=== PATIENT | female | born 1955 | race Caucasian/White ===

== ENCOUNTER 2022-11-22 07:34 | Inpatient (IN) | payer MEDICARE, OTHER ==
[2022-11-22] VITALS (12 sets, daily range): BP systolic 70–178; BP diastolic 68–98
[~2022-11-22] VITALS: Ht 165.1 cm; Wt 64.3 kg
--- NOTE | 2022-11-22 08:20 | ED Lower Extremity ---
General Chief Complaint: Trauma-Non Activation Stated Complaint: FALL; LT HIP PAIN Nursing Triage Note: Patient brought to the ED by EMS for chief complaint of fall and left hip pain. Family with patient report patient went to check on an alarm at 4:45 am this morning and fell down two steps into the garage. Family reports they were able to get patient back into bed, but that she continues to have left hip pain. Family states patient has Alzheimer's dementia. Source: patient Exam Limitations: no limitations History of Present Illness Date Seen by Provider: Nov 22, 2022 Time Seen by Provider: 07:45 Initial Comments Patient is a 67-year-old female presents with isolated left hip pain/injury after mechanical fall from standing. Patient with left hip pain/tenderness and shortening of left leg. Patient did not hit her head. No loss of consciousness headache or neck pain. No other injury or pain related complaint. Patient is not on anticoagulation therapy. Patient last ate 1 hour prior to ED arrival. Onset: just prior to arrival Pain/Injury Location: left leg Method of Injury: other Modifying Factors: Improves With Other Allergies and Home Medications Allergies Coded Allergies: Penicillins (Verified Allergy, Unknown, 11/22/22) Patient Home Medication List Home Medication List Reviewed: Yes Review of Systems Constitutional: see HPI EENTM: see HPI Respiratory: see HPI Cardiovascular: see HPI Gastrointestinal: see HPI Genitourinary: see HPI Musculoskeletal: joint pain, joint swelling Skin: see HPI Psychiatric/Neurological: Denies Numbness, Denies Weakness All Other Systems Reviewed Negative Unless Noted: No Past Ljinbig-Iicaue-Pcvbyv Hx Patient Social History Tobacco Use?: No Use of E-Cig and/or Vaping dev: No Substance use?: No Alcohol Use?: No Pt feels they are or have been: No Past Medical History Surgery/Hospitalization HX: Alzheimers; Dementia; HTN Physical Exam Vital Signs Vital Signs - First Documented 11/22/22 07:57 Temp 35.8 Pulse 87 Resp 18 B/P (MAP) 161/66 (97) Pulse Ox 100 O2 Delivery Room Air Capillary Refill : Less Than 3 Seconds Height, Weight, BMI Height: '" Weight: lbs. oz. kg; 23.00 BMI Method: General Appearance: mild distress HEENT: PERRL/EOMI, normal ENT inspection, pharynx normal Respiratory: lungs clear Gastrointestinal: non tender, soft Hips: left hip deformity, left hip limited range of motion, left hip soft tissue tenderness, left hip swelling, left hip other (Short left left leg) Neurologic/Psychiatric: no motor/sensory deficits, oriented x 3 Progress/Results/Core Measures Results/Orders My Orders Orders - ULYSSES RAMÍREZ DO Cbc With Automated Diff (11/22/22 07:45) Comprehensive Metabolic Panel (11/22/22 07:45) Ekg Tracing (11/22/22 07:45) Chest 1 View Ap/Pa Only (11/22/22 07:45) Hip 2-3 View Left (11/22/22 07:45) Vital Signs/I&O 11/22/22 07:57 Temp 35.8 Pulse 87 Resp 18 B/P (MAP) 161/66 (97) Pulse Ox 100 O2 Delivery Room Air Blood Pressure Mean: 97 Departure Communication (Admissions) Chest x-ray: No acute cardiopulmonary disease per Pelvis/left hip injury: Femoral neck fracture. EKG: Sinus rhythm, rate 71, no acute ST-T wave changes. Patient with accidental fall from standing with isolated closed femoral neck fracture which is neurovascularly intact. Pain addressed and controlled. Dr. Mitchell agrees to see in consult. Dr. Lanza contacted regarding admission Impression Primary Impression: Hip fracture, left Disposition: ADMITTED INPATIENT Condition: Stable Admissions Decision to Admit Reason: Admit from ER (General) Decision to Admit/Date: Nov 22, 2022 Time/Decision to Admit Time: 08:39 Transfer Method of Transfer: EMS Departure-Patient Inst. Decision time for Depature: 08:39 Referrals: DARIAN HODGES APRN (PCP) Primary Care Physician [facility] (Family) Primary Care Physician ULYSSES RAMÍREZ DO Nov 22, 2022 08:20
--- NOTE | 2022-11-22 08:27 | Diagnostic Imaging Report ---
INDICATION: Left hip pain and deformity post fall, fracture. TECHNIQUE: 2 views left hip 7:54 AM. CORRELATION STUDY: None FINDINGS: Left femoral neck fracture present. Significant impaction and foreshortening is noted. Slight coxa vera alignment along the superior subluxation of the femoral shaft in relation to the head. The femoral head acetabular relationship otherwise maintained. The remainder of the left hemipelvis intact. IMPRESSION: 1. Impacted, significantly foreshortened left femoral neck fracture. Dictated by: Dictated on workstation # [id number]
--- NOTE | 2022-11-22 08:36 | Diagnostic Imaging Report ---
INDICATION: 67-year-old female, hip fracture, preoperative evaluation. TECHNIQUE: Single view chest 7:52 AM. CORRELATION STUDY: None FINDINGS: The heart size, mediastinal configuration and pulmonary vascularity are within normal limits. No pulmonary infiltrate. There is a 13 mm irregular density right lung base superimposed over the anterior right 3rd rib. Degenerative changes and scoliotic curvature visualized thoracal lumbar spine. IMPRESSION: 1. Abnormal density right lung base. While may reflect summation shadows, possibility of lung neoplasm should be excluded. Correlation with CT imaging of the chest is recommended. Report was faxed and called to nurse Todd Maldonado by marcelo at 8:35am. Dictated by: Dictated on workstation # [id number]
[2022-11-22 08:40] LABS: BASOPHILS # (AUTO) 0.1 10^3/uL (0.0-0.1); BASOPHILS % (AUTO) 0 % (0-10); EOSINOPHILS % (AUTO) 0 % (0-10); HEMATOCRIT 40 % (35-52); HEMOGLOBIN 13.9 g/dL (11.5-16.0); LYMPHOCYTES # (AUTO) 1.4 10^3/uL (1.0-4.0); LYMPHOCYTES % (AUTO) 6 % (12-44); MEAN CORPUSCULAR HEMOGLOBIN 29 pg (25-34); MEAN CORPUSCULAR HGB CONC 35 g/dL (32-36); MEAN CORPUSCULAR VOLUME 84 fL (80-99); MEAN PLATELET VOLUME 10.1 fL (9.0-12.2); MONOCYTES # (AUTO) 0.8 10^3/uL (0.0-1.0); MONOCYTES % (AUTO) 4 % (0-12); NEUTROPHILS # (AUTO) 19.9 10^3/uL (1.8-7.8); NEUTROPHILS % (AUTO) 89 % (42-75); PLATELET COUNT 297 10^3/uL (130-400); WHITE BLOOD COUNT 22.4 10^3/uL (4.3-11.0)
[2022-11-22 09:04] LABS: POTASSIUM 4.3 MMOL/L (3.6-5.0)
[2022-11-22 09:05] LABS: ALBUMIN 4.1 GM/DL (3.2-4.5); BILIRUBIN,TOTAL 0.2 MG/DL (0.1-1.0); CALCIUM 8.9 MG/DL (8.5-10.1); CREATININE SERUM 0.97 MG/DL (0.60-1.30)
[2022-11-22 09:08] LABS: BAND NEUTROPHILS 6 %; LYMPHOCYTES % (MANUAL) 6 %; MONOCYTES % (MANUAL) 2 %; NEUTROPHILS % (MANUAL) 86 %; PLATELET ESTIMATE NORMAL; RBC MORPH NORMAL
[2022-11-22 10:58] LABS: BILIRUBIN,URINE NEGATIVE (NEGATIVE); CLARITY,URINE TURBID; COLOR,URINE YELLOW; GLUCOSE, URINE (UA) NEGATIVE (NEGATIVE); KETONES,URINE NEGATIVE (NEGATIVE); LEUKOCYTE ESTERASE ,URINE NEGATIVE (NEGATIVE); NITRITE,URINE NEGATIVE (NEGATIVE); PROTEIN,URINE NEGATIVE (NEGATIVE)
[2022-11-22 11:09] LABS: AMORPHOUS SEDIMENT,UR LARGE AMOR URATES /LPF; BACTERIA,URINE NEGATIVE /HPF; RBC,URINE RARE /HPF; SQUAMOUS EPITHELIAL CELL,UR RARE /HPF; WBC,URINE RARE /HPF
[2022-11-22] MEDS ORDERED: BISACODYL 10 MG SUPP (DULCOLAX) PR PRN (11:15)
[2022-11-22] MEDS ORDERED: diphenhydrAMINE 25 MG TAB (BENADRYL) PO PRN (11:15)
[2022-11-22] MEDS ORDERED: ONDANSETRON 4 MG (ZOFRAN) ORAL DISSOLVE TAB PO PRN (11:15)
[2022-11-22] MEDS ORDERED: diphenhydrAMINE 50 MG/ML INJ (BENADRYL) IVP PRN (11:15)
[2022-11-22] MEDS ORDERED: ACETAMINOPHEN 325 MG TABLET PO PRN (11:15)
[2022-11-22] MEDS ORDERED: ANTACID SUSP 30 ML UDC (MYLANTA) PO PRN (11:15)
[2022-11-22] MEDS ORDERED: ONDANSETRON 4 MG/2 ML (SDV) Z0FRAN IV PRN (11:15)
[2022-11-22] MEDS ORDERED: polyethylene glycoL POWDER 17 GM (MIRALAX) PACK PO PRN (11:15)
[2022-11-22] MEDS: NS IV 1000 ML 1,000 ML IV SCH ×2 (11:39→21:09)
[2022-11-22] MEDS: HYDROmorphone 2 MG/ML VIAL (DILAUDID) IV PRN (11:56)
[2022-11-22] MEDS ORDERED: LIDOCAINE PF 2% 5 ML (XYLOCAINE) VIAL ONE (12:01)
[2022-11-22] MEDS ORDERED: SEVOFLURANE (ULTANE) 15 ML INHAL SOLN ONE ×2 (12:01→16:21)
[2022-11-22] MEDS ORDERED: fentaNYL INJ 100 MCG/2 ML AMP ONE ×2 (12:01→16:49)
[2022-11-22] MEDS ORDERED: MIDAZOLAM 2 MG/2 ML (VERSED) VIAL ONE (12:01)
[2022-11-22] MEDS ORDERED: proPOfol 200 MG/20 ML (DIPRIVAN) VIAL IV ONE (12:01)
[2022-11-22] MEDS ORDERED: ONDANSETRON 4 MG/2 ML (SDV) Z0FRAN ONE (12:01)
--- NOTE | 2022-11-22 12:16 | Consultation - Ortho ---
Consult - Ortho Subjective Date of Exam 11/22/22 Chief Complaint Left Hip Injury HPI/Events since last exam fall from standing height, landed on left side, seen in [facility] ER and was found to have a displaced femoral neck fracture was transferred here for definitive care Medical, Surgical History - Social History - Family History - Review of Systems - Allergies: Coded Allergies: Penicillins (Verified Allergy, Unknown, 11/22/22) Objective Exam Right Leg: Shortened, externally rotated, +DF of ankle, pulses palpable, sensation grossly intact to light touch Vital Signs Vital Signs Date Time Temp Pulse Resp B/P (MAP) Pulse Ox O2 Delivery O2 Flow Rate FiO2 11/22/22 11:43 Room Air 11/22/22 11:37 35.8 87 97 11/22/22 09:56 87 16 135/72 97 Room Air 11/22/22 07:57 35.8 87 18 161/66 (97) 100 Room Air Lab Results Laboratory Tests 11/22/22 08:30: White Blood Count 22.4H, Red Blood Count 4.74, Hemoglobin 13.9, Hematocrit 40, Mean Corpuscular Volume 84, Mean Corpuscular Hemoglobin 29, Mean Corpuscular Hemoglobin Concent 35, Red Cell Distribution Width 12.3, Platelet Count 297, Me an Platelet Volume 10.1, Immature Granulocyte % (Auto) 1, Neutrophils (%) (Auto) 89H, Lymphocytes (%) (Auto) 6L, Monocytes (%) (Auto) 4, Eosinophils (%) (Auto) 0, Basophils (%) (Auto) 0, Neutrophils # (Auto) 19.9H, Lymphocytes # (Auto) 1.4, Monocytes # (Auto) 0.8, Eosinophils # (Auto) 0.0, Basophils # (Auto) 0.1, Immature Granulocyte # (Auto) 0.2H, Neutrophils % (Manual) 86, Lymphocytes % (Manual) 6, Monocytes % (Manual) 2, Band Neutrophils 6, Platelet Estimate NORMAL, Blood Morphology Comment NORMAL, Urine Color YELLOW, Urine Clarity TURBID, Urine pH 6.0, Urine Specific Hernando 1.025H, Urine Protein NEGATIVE, Urine Glucose (UA) NEGATIVE, Urine Ketones NEGATIVE, Urine Nitrite NEGATIVE, Urine Bilirubin NEGATIVE, Urine Urobilinogen 0.2, Urine Leukocyte Esterase NEGATIVE, Urine RBC (Auto) NEGATIVE, Urine RBC RARE, Urine WBC RARE, Urine Squamous Epithelial Cells RARE, Urine Crystals PRESENTH, Urine Amorphous Sediment LARGE LUIS URATESH, Urine Bacteria NEGATIVE, Urine Casts NONE, Urine Mucus MODERATEH, Urine Culture Indicated NO, Sodium Level 136, Potassium Level 4.3, Chloride Level 99, Carbon Dioxide Level 25, Anion Gap 12, Blood Urea Nitrogen 15, Creatinine 0.97, Estimat Glomerular Filtration Rate 64, BUN/Creatinine Ratio 15, Glucose Level 106H, Calcium Level 8.9, Corrected Calcium 8.8, Total Bilirubin 0.2, Aspartate Amino Transf (AST/SGOT) 19, Alanine Aminotransferase (ALT/SGPT) 18, Alkaline Phosphatase 81, Total Protein 7.0, Albumin 4.1 Imaging 2 views of the left hip were reviewed from PACS and demonstrated a displaced femoral neck fracture Assessment and Plan Assessment Displaced Left Femoral Neck Fracture Problem List Displaced Left Femoral Neck Fracture Plan I have recommended prosthetic replacement of the left femoral neck fracture. Nature of the procedure and the postoperative course were discussed with the patient's family. Risks and benefits were discussed. Will plan to proceed today versus in the AM if there is a reason for optimization medically. Final Diagonsis Displaced Left Femoral Neck Fracture Level of the visit: Level 3 (preop) KINZA JASON MD Nov 22, 2022 12:16
[2022-11-22] MEDS: LACTATED RINGERS 1,000 ML IV PRN ×2 (14:38→16:03)
[2022-11-22] MEDS ORDERED: CLINDAMYCIN 600 MG/50 ML IVPB 50 ML IV ONE (14:45)
[2022-11-22] MEDS ORDERED: ROCURONIUM 50 MG/5 ML (ZEMURON) VIAL IV ONE (15:09)
--- NOTE | 2022-11-22 15:18 | History & Physical-Hospitalist ---
KEN COSTELLOHON French 11/22/22 1518: History of Present Illness HPI/Chief Complaint CC: Left hip pain HPI: Olivia Ritter is a 67 year old female with a past medical history of alzheimer's dementia admitted from [place] ED for operative management after discovering she had a displaced femoral neck fracture. 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 Per ED note, she was found to be neurovascularly intact and not taking anticoagulation. Orthopedic consultation was obtained, and operative management was scheduled for the afternoon of 11/22. Medicine is consulted for postoperative medical management. Date Seen 11/22/22 Time Seen by a Provider: 12:00 Attending Physician Ashlie Jama Aprn PCP Admitting Physician: Francia Dorman DO Attending Physician: Francia Dorman DO Referring Physician Date of Admission Nov 22, 2022 at 10:30 Home Medications & Allergies Home Medications Reviewed patient Home Medication Reconciliation performed by pharmacy medication reconciliations retail pharmacy technician and/or nursing. Patients Allergies have been reviewed. Allergies Allergies Coded Allergies Penicillins (Verified Allergy, Unknown, 11/22/22) Past Jvxjdlm-Xcfems-Umtvhu Hx Patient Social History Tobacco Use?: No Use of E-Cig and/or Vaping dev: No Substance use?: No Alcohol Use?: No Pt feels they are or have been: No Current Status Advance Directives: No Communicates: Verbally Primary Language: Citizen Of [place] Preferred Spoken Language: Citizen Of [place] Review of Systems Constitutional: other (Leg pain) EENTM: see HPI Respiratory: see HPI Cardiovascular: see HPI Gastrointestinal: see HPI Genitourinary: see HPI Psychiatric/Neurological: Other (Dementia) Physical Exam Physical Exam Vital Signs Vital Signs - First Documented 11/22/22 07:57 Temp 35.8 Pulse 87 Resp 18 B/P (MAP) 161/66 (97) Pulse Ox 100 O2 Delivery Room Air Capillary Refill : Less Than 3 Seconds Height, Weight, BMI Height: '" Weight: lbs. oz. kg; 23.00 BMI Method: General Appearance: Mild Distress Eyes: Right Eye Normal Inspection, Right Eye PERRL HEENT: PERRL/EOMI, TMs Normal, Normal ENT Inspection, Pharynx Normal, Moist Mucous Membranes Neck: Full Range of Motion, Normal Inspection, Non Tender Respiratory: Chest Non Tender, Lungs Clear, Normal Breath Sounds, No Accessory Muscle Use, No Respiratory Distress Cardiovascular: Regular Rate, Rhythm, No Edema, No Gallop, No JVD, No Murmur, Normal Peripheral Pulses Gastrointestinal: Normal Bowel Sounds, No Organomegaly, No Pulsatile Mass, Non Tender, Soft Rectal: Deferred Back: Normal Inspection, No CVA Tenderness, No Vertebral Tenderness Extremity: Other (Left leg pain with minimal ROM, shorter and externally rotated) Neurologic/Psychiatric: Alert (Repetitively saying "I love you"); No Oriented x3 Results Results/Procedures Labs Laboratory Tests 11/22/22 08:30 Patient resulted labs reviewed. Assessment/Plan Assessment and Plan Left hip fx - CXR: Impacted,significantly foreshortened left femoral neck fracture. - Surgical management per Orthopedics - ORIF 11/22 - On Clindamycin postoperatively - Pain meds PRN Leukocytosis - Afebrile - Likely due to stress of injury - On abx - Will monitor Clinical Quality Measures DVT/VTE Risk/Contraindication: Contraindications-Pharm: Other *list below* Other: surgery FRANCIA DORMAN DO 11/23/22 0647: History of Present Illness Source: patient Exam Limitations: clinical condition Past Lscyxmu-Hgmcmd-Utxqft Hx Patient Social History Marrital Status: single Employed/Student: retired Smoking Status: Never a Smoker Past Medical History Dementia Review of Systems Constitutional: see HPI Physical Exam Physical Exam General Appearance: Anxious, Chronically ill, Mild Distress Assessment/Plan Admission Diagnosis Assessment: Left hip fracture Dementia Bed bug infestation Plan: Pain control Repair Admission Status: Inpatient Order (span 2 midnights) Reason for Inpatient Admission: hip fx Supervisory-Addendum Brief Verification & Attestation Participated in pt care: history, MDM, physical Personally performed: exam, history, MDM, supervision of care Care discussed with: Medical Student Procedures: n/a Results interpretation: Verified all documentation Verification and Attestation of Medical Student E/M Service A medical student performed and documented this service in my presence. I reviewed and verified all information documented by the medical student and made modifications to such information, when appropriate. I personally performed the physical exam and medical decision making. Francia Dorman Nov 23, 2022,06:47 JAKE COSTELLO I Nov 22, 2022 15:18 FRANCIA DORMAN DO Nov 23, 2022 06:47
[2022-11-22] MEDS ORDERED: BUPIVACAINE 0.25% 30 ML (SENSORCAINE) VIAL ONE (15:37)
[2022-11-22] MEDS ORDERED: GLYCOPYRROLATE 0.2 MG/ML (ROBINUL) 2 ML VIAL ONE (15:40)
[2022-11-22] MEDS ORDERED: NEOSTIGMINE (BLOXIVERZ ) 1 MG/1ML 10 ML VIAL ONE (15:40)
[2022-11-22] MEDS ORDERED: TRANEXAMIC ACID 100 MG/ML 10 ML INJECTION ONE (15:41)
--- NOTE | 2022-11-22 16:13 | Operative Report - Ortho ---
Operative Report Surgeon (s)/Detail Supervisor (s) Surgeon KINZA JASON MD Detail Supervisor n/a Pre-Operative Diagnosis Left Femoral Neck Fracture Post-Operative Diagnosis same Operative Report Date of Procedure: Nov 22, 2022 Name of Procedure Performed: Prosthetic Replacement of Left Femoral Neck Fracture Description & Findings After obtaining informed consent, patient did receive IV antibiotics. Patient was taken to the operating room and anesthesia was induced. Patient was placed in the lateral decubitus position with the left side up. Left lower extremity was prepped and draped in the usual sterile fashion. Surgical timeout was taken. A posterolateral approach was utilized. External rotators and capsule were taken down in one layer. Fracture hematoma was evacuated. Femoral head was removed from the acetabulum and sized. The fracture site on the femoral neck was freshened with a saw. A 44 mm bipolar component was trialed and found to have good fit. Attention was turned to the femur, VaultLogix cutter osteotome was used to remove the remainder of the femoral neck near the greater trochanter. Canal finder was inserted followed by the lateralizing reamer. Sequential broaching was began with a 0 and broaching to a 3. The 3 had good metaphyseal fit and fill. A +4 mm head and a 44 mm bipolar component were put on a 127 neck trial. This was located. Found to have grossly equal leg lengths. Stable in position of sleep and flexion with internal rotation this was accepted. Hip was atraumatically dislocated and the trial components were removed. The femoral canal and acetabulum were irrigated with pulsatile lavage. A size 3 Accolade II stem with a 127 neck was placed and set at the same level as the broach. A +4 mm head was impacted onto the Roberts taper of the stem. A 44 mm bipolar component was placed. Hip was located and once again found to be stable. Further irrigation was performed. Capsular layer was repaired with #2 Fiberwire. The fascial layer was closed with #2 Stratafix. The subcutaneous layer was closed with 2-0 vicryl and the skin was closed with donn. Incision site was dressed with xeroform, 4x4s, ABD, and tape. Patient was placed in abduction pillow postoperatively and was transferred to hospital bed without incident. Tolerated the procedure well and was stable to recovery room. Anesthesia Type General Estimated Blood Loss 100 mL Specimen(s) collected/removed None KINZA JASON MD Nov 22, 2022 16:13
[2022-11-22] MEDS ORDERED: fentaNYL INJ 100 MCG/2 ML AMP IVP ONE (16:45)
[2022-11-22] MEDS ORDERED: ONDANSETRON 4 MG/2 ML (SDV) Z0FRAN IVP PRN (16:45)
--- NOTE | 2022-11-22 16:57 | Diagnostic Imaging Report ---
INDICATION: Postoperative follow-up. COMPARISON: Imaging from the same date. TECHNIQUE: Single radiograph of the pelvis dated 11/22/2022. FINDINGS: Interval placement of a left total hip arthroplasty is noted with surgical clips overlying the lateral left hip. Postsurgical subcutaneous emphysema is present. No evidence of immediate hardware complication. No new fracture or dislocation. Degenerative changes within the partially visualized lower lumbar spine. IMPRESSION: Interval placement of a left hip arthroplasty without evidence of immediate hardware complication, new acute osseous abnormality, or suspicious radiopaque foreign body. Dictated by: Dictated on workstation # [id number]
[2022-11-22] MEDS ORDERED: LORazepam 0.5 MG (ATIVAN) TABLET PO PRN (20:45)
[2022-11-22] MEDS ORDERED: ZIPRASIDONE 20 MG INJ (GEODON) VIAL IM PRN (20:45)
[2022-11-22] MEDS ORDERED: LORazepam INJ 2 MG/ML (ATIVAN) VIAL IVP PRN (20:45)
[2022-11-22] MEDS ORDERED: WATER (STERILE) FOR INJ 10 ML BTL INJ SCH (20:45)
[2022-11-22] MEDS: MELATONIN 3 MG TABLET PO PRN (21:07)
[2022-11-22] MEDS: DOCUSATE SODIUM 100 MG (COLACE) CAP PO SCH (21:07)
[2022-11-22] MEDS: CLINDAMYCIN 600 MG/50 ML IVPB 50 ML IV SCH (21:09)
[2022-11-23 05:19] VITALS: BP 149/72
[2022-11-23] MEDS: CLINDAMYCIN 600 MG/50 ML IVPB 50 ML IV SCH (05:19)
--- NOTE | 2022-11-23 06:46 | Progress Note - Hospitalist ---
Subjective HPI/CC On Admission Date Seen by Provider: Nov 23, 2022 Time Seen by Provider: 11:00 CC: Left hip pain HPI: Olivia Ritter is a 67 year old female with a past medical history of alzheimer's dementia admitted from [place] ED for operative management after discovering she had a displaced femoral neck fracture. 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 Per ED note, she was found to be neurovascularly intact and not taking anticoagulation. Orthopedic consultation was obtained, and operative management was scheduled for the afternoon of 11/22. Medicine is consulted for postoperative medical management. Subjective/Events-last exam Patient doing well Pain is controlled Oldest daughter at the bedside who lives with patient Labs reviewed Review of Systems Musculoskeletal: leg pain Neurological: Confusion Objective Exam Vital Signs Vital Signs Date Time Temp Pulse Resp B/P (MAP) Pulse Ox O2 Delivery O2 Flow Rate FiO2 11/23/22 11:29 37.1 107 18 147/67 (93) 96 Room Air 2.00 2.00 Capillary Refill : Less Than 3 Seconds General Appearance: No Apparent Distress, WD/WN, Chronically ill Respiratory: Lungs Clear, Normal Breath Sounds Cardiovascular: Regular Rate, Rhythm Neurologic/Psychiatric: Alert, Disoriented Results/Procedures Lab Laboratory Tests 11/23/22 06:45 Patient resulted labs reviewed. Assessment/Plan Assessment and Plan Assess & Plan/Chief Complaint Assessment: Left hip fracture status post repair uncomplicated by Dr. Mitchell Dementia Bed bug infestation Plan: Pain control Monitor closely Clinical Quality Measures DVT/VTE Risk/Contraindication: Contraindications-Pharm: Other *list below* Other: surgery NELA DORMAN DO Nov 23, 2022 06:46
[2022-11-23 07:01] LABS: BASOPHILS % (AUTO) 0 % (0-10); EOSINOPHILS % (AUTO) 0 % (0-10); HEMATOCRIT 35 % (35-52); LYMPHOCYTES # (AUTO) 1.1 10^3/uL (1.0-4.0); LYMPHOCYTES % (AUTO) 6 % (12-44); MEAN CORPUSCULAR HEMOGLOBIN 30 pg (25-34); MEAN CORPUSCULAR HGB CONC 34 g/dL (32-36); MEAN CORPUSCULAR VOLUME 87 fL (80-99); MEAN PLATELET VOLUME 10.3 fL (9.0-12.2); MONOCYTES # (AUTO) 1.1 10^3/uL (0.0-1.0); MONOCYTES % (AUTO) 6 % (0-12); NEUTROPHILS # (AUTO) 16.8 10^3/uL (1.8-7.8); NEUTROPHILS % (AUTO) 88 % (42-75); PLATELET COUNT 262 10^3/uL (130-400); WHITE BLOOD COUNT 19.2 10^3/uL (4.3-11.0)
[2022-11-23 07:14] LABS: ALBUMIN 3.3 GM/DL (3.2-4.5)
[2022-11-23 07:15] LABS: POTASSIUM 4.4 MMOL/L (3.6-5.0)
[2022-11-23 07:16] LABS: CALCIUM 8.2 MG/DL (8.5-10.1)
[2022-11-23 07:17] LABS: TOTAL PROTEIN 6.2 GM/DL (6.4-8.2)
[2022-11-23 07:19] LABS: BILIRUBIN,TOTAL 0.6 MG/DL (0.1-1.0)
[2022-11-23 07:21] LABS: CREATININE SERUM 0.92 MG/DL (0.60-1.30)
[2022-11-23 07:40] VITALS: BP 147/71
[2022-11-23] MEDS: DOCUSATE SODIUM 100 MG (COLACE) CAP PO SCH ×2 (08:19→21:10)
[2022-11-23] MEDS: NS IV 1000 ML 1,000 ML IV SCH ×2 (08:22→18:39)
--- NOTE | 2022-11-23 08:38 | Physical Therapy Evaluation ---
PT Evaluation-General Medical Diagnosis Admission Date Nov 22, 2022 at 10:30 Medical Diagnosis: (L) femur fracture Onset Date: Nov 22, 2022 Therapy Diagnosis Therapy Diagnosis: difficulty walking Precautions Precautions/Isolations: Contact Isolation, Fall Prevention Weight Bear Status Left Lower Extremity: Left Weight Bearing/Tolerated Referral Physician: Paula Reason for Referral: Evaluation/Treatment Social History Patient has dementia so difficult to obtain Prior Prior Level of Function SCALE: Activities may be completed with or without assistive devices. 1-Tursyssmwh-gfrviji completes the activity by him/herself with no assistance from a helper. 5-Set-up or Clean-up Assistance-helper sets up or cleans up; patient completes activity. [place] assists only prior to or following the activity. 4-Supervision or Touching Assistance-helper provides verbal cues and/or touching/steadying and/or contact guard assistance as patient completes activity. Assistance may be provided throughout the activity or intermittently. 3-Partial/Moderate Assistance-helper does LESS THAN HALF the effort. Stand[place] lifts, holds or supports trunk or limbs, but provides less than half the effort. 2-Substantial/Maximal Assistance-helper does MORE THAN HALF the effort. [place] lifts or holds trunk or limbs and provides more than half the effort. 6-Tsivssqwx-jaozni does ALL the effort. Patient does none of the effort to complete the activity. Or, the assistance of 2 or more helpers is required for the patient to complete the activity. If activity was not attempted, code reason: 7-Patient Refused. 9-Not Applicable-not attempted and the patient did not perform the activity before the current illness, exacerbation or injury. 10-Not Attempted due to Environmental Limitations-(lack of equipment, weather restraints, etc.). 88-Not Attempted due to Medical Conditions or Safety Concerns. Bed Mobility: 6 Transfers (B,C,W/C): 6 Gait: 6 Stairs: 6 Indoor Mobility (Ambulation): Independent Stairs: Independent Prior Devices Use: None Patient has dementia so unsure of accuracy PT Evaluation-Current Subjective Unable to get good subjective secondary to dementia Pain Numeric Pain Scale: 0-No Pain Comment: patient states that she doesn't have pain at rest Objective Attachments: Lepe Catheter, IV ROM/Strength ROM Lower Extremities 10 degrees of (L) hip flexion PROM Patient unwilling to let met move any other directions Transfers Roll Left to Right (QC): 07 Sit to Lying (QC): 07 Lying to Sitting/Side of Bed(Q: 07 Sit to Stand (QC): 07 Chair/Zmd-vm-Hlsam Xfer(QC): 07 Toilet Transfer (QC): 07 Car Transfer (QC): 07 patient pushed back into bed with any activities Gait Does the Patient Walk?: No and Walking Goal IS indicated Mode of Locomotion: Both Anticipated Mode of Locomotion: Walk Walk 10 feet (QC): 07 Walk 50 ft with 2 Turns(QC): 07 Walk 150 ft (QC): 07 Walking 10ft/uneven surface-QC: 07 Assessment/Needs 67 y.o. female with a diagnosis of (L) femur fracture with ORIF. The patient has severe dementia and did not participate in therapy well. She resisted all activities. Rehab Potential: Guarded PT Short Term Goals Short Term Goals Time Frame: Nov 27, 2022 Roll Left & Right: 3 Sit to lyin Lying to sitting on side of be: 3 Sit to stand: 3 Chair/eki-ae-kegdw transfer: 3 Toilet transfer: 3 Car transfer: 3 Walk 10 feet: 3 PT Pit Hoist Operator Goals Pit Hoist Operator Goals PT Pit Hoist Operator Goals Time Frame: Nov 30, 2022 Roll Left & Right (QC): 5 Sit to Lying (QC): 5 Lying-Sitting on Side/Bed(QC): 5 Sit to Stand (QC): 5 Chair/Ciz-va-Ayetd Xfer(QC): 5 Toilet Transfer (QC): 5 Car Transfer (QC): 5 Does the Patient Walk: No and Walking Goal IS indicated Walk 10 feet (QC): 5 Walk 50ft with 2 Turns (QC): 5 PT Plan Problem List Problem List: Activity Tolerance, Functional Strength, Safety, Balance, Gait, Transfer, Bed Mobility, ROM Treatment/Plan Treatment Plan: Continue Plan of Care Treatment Plan: Bed Mobility, Education, Functional Activity Pa, Functional Strength, Gait, Safety, Therapeutic Exercise, Transfers Treatment Duration: Nov 30, 2022 Frequency: 11 times per week Estimated Hrs Per Day: 1 hour per day Time Time In: 08 Time Out: 829 DATE: Nov 23, 2022 Total Billed Treatment Time: 20 Total Billed Treatment 1, EV Low complexity x 20' ULYSSES NUNES PT Nov 23, 2022 08:38
--- NOTE | 2022-11-23 10:12 | Progress Note - Ortho ---
Progress Note Subjective Date of Exam 11/23/22 Chief Complaint POD #1 L Hip Bipolar HPI/Events since last exam not able to participate with therapy, pain appears controlled Review of Systems - Allergies: Coded Allergies: Penicillins (Verified Allergy, Unknown, 11/22/22) Objective Exam Left Hip: Dressing C/D/I, +DF of ankle, no s/s of DVT Vital Signs Vital Signs Date Time Temp Pulse Resp B/P (MAP) Pulse Ox O2 Delivery O2 Flow Rate FiO2 11/23/22 07:40 37.0 95 20 147/71 (96) 95 Room Air 11/23/22 05:19 36.7 106 20 149/72 (97) 97 Room Air 11/22/22 23:23 36.6 109 16 170/77 (108) 99 Room Air 11/22/22 21:40 36.0 11/22/22 20:56 36.0 102 18 153/71 (98) 93 Room Air 11/22/22 20:13 99 Room Air 11/22/22 18:53 93 Room Air 11/22/22 17:24 Room Air 11/22/22 17:20 36.3 17 175/92 (119) 93 Room Air 11/22/22 17:15 15 163/96 (118) 99 Room Air 11/22/22 17:10 16 166/86 (112) 98 Room Air 11/22/22 17:00 14 160/86 (110) 97 Room Air 11/22/22 17:00 36.1 95 20 172/79 (110) 96 Room Air 11/22/22 16:55 Room Air 11/22/22 16:50 16 70/98 (89) 100 OxyMask 2.00 11/22/22 16:40 15 170/85 (113) 100 OxyMask 2.00 11/22/22 16:40 OxyMask 2.00 11/22/22 16:30 16 162/93 (116) 99 OxyMask 4.00 11/22/22 16:24 OxyMask 6.00 11/22/22 16:24 36.2 18 178/87 (117) 100 OxyMask 6.00 11/22/22 12:30 36.2 82 18 143/68 (93) 100 Room Air 11/22/22 11:43 Room Air 11/22/22 11:37 35.8 87 97 I & O 11/23/22 06:59 Intake Total 1907 ml Output Total 675 ml Balance 1232 ml Lab Results Laboratory Tests 11/23/22 06:45: White Blood Count 19.2H, Red Blood Count 4.05, Hemoglobin 12.0, Hematocrit 35, Mean Corpuscular Volume 87, Mean Corpuscular Hemoglobin 30, Mean Corpuscular Hemoglobin Concent 34, Red Cell Distribution Width 12.5, Platelet Count 262, Mean Platelet Volume 10.3, Immature Granulocyte % (Auto) 1, Neutrophils (%) (Auto) 88H, Lymphocytes (%) (Auto) 6L, Monocytes (%) (Auto) 6, Eosinophils (%) (Auto) 0, Basophils (%) (Auto) 0, Neutrophils # (Auto) 16.8H, Lymphocytes # (Auto) 1.1, Monocytes # (Auto) 1.1H, Eosinophils # (Auto) 0.0, Basophils # (Auto) 0.0, Immature Granulocyte # (Auto) 0.1, Sodium Level 133L, Potassium Level 4.4, Chloride Level 102, Carbon Dioxide Level 22, Anion Gap 9, Blood Urea Nitrogen 14, Creatinine 0.92, Estimat Glomerular Filtration Rate 68, BUN/Creatinine Ratio 15, Glucose Level 124H, Calcium Level 8.2L, Corrected Calcium 8.8, Total Bilirubin 0.6, Aspartate Amino Transf (AST/SGOT) 20, Alanine Aminotransferase (ALT/SGPT) 19, Alkaline Phosphatase 62, Total Protein 6.2L, Albumin 3.3 Imaging Postop AP pelvis reviewed and demonstrated bipolar components to be in good position without complication Assessment and Plan Assessment Left Femoral Neck Fracture s/p Prosthetic Replacement Problem List Left Femoral Neck Fracture s/p Prosthetic Replacement Plan PT as able DVT prophylaxis Will most likely require NH placement Final Diagonsis Left Femoral Neck Fracture s/p Prosthetic Replacement Level of the visit: Level 3 (postop global) Clinical Quality Measures DVT/VTE Risk/Contraindication: Contraindications-Pharm: Other *list below* Other: surgery KINZA AJSON MD Nov 23, 2022 10:12
[2022-11-23 11:29] VITALS: BP 147/67
[2022-11-23 15:56] VITALS: BP 124/59
--- NOTE | 2022-11-23 16:10 | Anesthesia-General Post-Op ---
General Patient Condition Mental Status/LOC: Same as Preop Cardiovascular: Satisfactory Nausea/Vomiting: Absent Respiratory: Satisfactory Pain: Controlled Complications: Absent Post Op Complications Complications None Follow Up Care/Instructions Patient Instructions None needed. Anesthesia/Patient Condition Patient Condition Patient is doing well, no complaints, stable vital signs, no apparent adverse anesthesia problems. No complications reported per nursing. BELLA GARICA CRNA Nov 23, 2022 16:09
[2022-11-23 19:40] VITALS: BP 142/63
[2022-11-24] VITALS (7 sets, daily range): BP systolic 136–178; BP diastolic 63–87
[2022-11-24] MEDS: NS IV 1000 ML 1,000 ML IV SCH ×2 (05:16→15:52)
[2022-11-24 06:48] LABS: BASOPHILS % (AUTO) 0 % (0-10); EOSINOPHILS % (AUTO) 0 % (0-10); HEMATOCRIT 32 % (35-52); HEMOGLOBIN 10.5 g/dL (11.5-16.0); LYMPHOCYTES # (AUTO) 1.2 10^3/uL (1.0-4.0); LYMPHOCYTES % (AUTO) 8 % (12-44); MEAN CORPUSCULAR HEMOGLOBIN 29 pg (25-34); MEAN CORPUSCULAR HGB CONC 33 g/dL (32-36); MEAN CORPUSCULAR VOLUME 89 fL (80-99); MEAN PLATELET VOLUME 11.2 fL (9.0-12.2); MONOCYTES # (AUTO) 1.4 10^3/uL (0.0-1.0); MONOCYTES % (AUTO) 9 % (0-12); NEUTROPHILS # (AUTO) 12.4 10^3/uL (1.8-7.8); NEUTROPHILS % (AUTO) 82 % (42-75); PLATELET COUNT 210 10^3/uL (130-400); WHITE BLOOD COUNT 15.1 10^3/uL (4.3-11.0)
[2022-11-24 07:16] LABS: ALBUMIN 2.7 GM/DL (3.2-4.5); BILIRUBIN,TOTAL 0.6 MG/DL (0.1-1.0); CALCIUM 7.6 MG/DL (8.5-10.1); CREATININE SERUM 0.79 MG/DL (0.60-1.30); POTASSIUM 3.9 MMOL/L (3.6-5.0); TOTAL PROTEIN 5.4 GM/DL (6.4-8.2)
--- NOTE | 2022-11-24 07:54 | Progress Note - Hospitalist ---
Subjective HPI/CC On Admission Date Seen by Provider: Nov 24, 2022 Time Seen by Provider: 11:00 CC: Left hip pain HPI: Olivia Ritter is a 67 year old female with a past medical history of alzheimer's dementia admitted from [place] ED for operative management after discovering she had a displaced femoral neck fracture. 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 Per ED note, she was found to be neurovascularly intact and not taking anticoagulation. Orthopedic consultation was obtained, and operative management was scheduled for the afternoon of 11/22. Medicine is consulted for postoperative medical management. Subjective/Events-last exam Patient doing okay Slow recovery Daughter at bedside Did not really participate in therapy today Lepe catheter still in place Review of Systems Musculoskeletal: leg pain Neurological: Confusion Objective Exam Vital Signs Vital Signs Date Time Temp Pulse Resp B/P (MAP) Pulse Ox O2 Delivery O2 Flow Rate FiO2 11/24/22 11:46 36.9 104 20 165/76 (105) 94 Room Air 11/24/22 08:00 2.00 Capillary Refill : Less Than 3 Seconds General Appearance: No Apparent Distress, WD/WN, Chronically ill Respiratory: Lungs Clear, Normal Breath Sounds Cardiovascular: Regular Rate, Rhythm Neurologic/Psychiatric: Alert, Oriented x3, Disoriented Results/Procedures Lab Laboratory Tests 11/24/22 05:12 Patient resulted labs reviewed. Assessment/Plan Assessment and Plan Assess & Plan/Chief Complaint Assessment: Left hip fracture status post repair uncomplicated by Dr. Mitchell Dementia Bed bug infestation Plan: Pain control Monitor closely Clinical Quality Measures DVT/VTE Risk/Contraindication: Contraindications-Pharm: Other *list below* Other: surgery NELA DORMAN DO Nov 24, 2022 07:54
[2022-11-24] MEDS: DOCUSATE SODIUM 100 MG (COLACE) CAP PO SCH ×2 (09:22→21:07)
--- NOTE | 2022-11-24 10:35 | Physical Therapy Daily Note ---
PT Daily Note-Current Subjective Patient still very confused and unable to answer questions. Pain Section J - Health Conditions 1. Rarely or not at all 2. Occasionally 3. Frequently 4. Almost constantly 8. Unable to answer Pain Effect on Sleep: 8 Pain Interference with Therapy: 8 Pain Interference w/Day-to-Day: 8 Mental Status Patient Orientation: Confused Transfers SCALE: Activities may be completed with or without assistive devices. 4-Hyhgivatzi-bvkfgkl completes the activity by him/herself with no assistance from a helper. 5-Set-up or Clean-up Assistance-helper sets up or cleans up; patient completes activity. [place] assists only prior to or following the activity. 4-Supervision or Touching Assistance-helper provides verbal cues and/or touching/steadying and/or contact guard assistance as patient completes activity . Assistance may be provided throughout the activity or intermittently. 3-Partial/Moderate Assistance-helper does LESS THAN HALF the effort. [place] lifts, holds or supports trunk or limbs, but provides less than half the effort. 2-Substantial/Maximal Assistance-helper does MORE THAN HALF the effort. [place] lifts or holds trunk or limbs and provides more than half the effort. 4-Ypbqzfjln-lmkzvm does ALL the effort. Patient does none of the effort to complete the activity. Or, the assistance of 2 or more helpers is required for the patient to complete the activity. If activity was not attempted, code reason: 7-Patient Refused. 9-Not Applicable-not attempted and the patient did not perform the activity before the current illness, exacerbation or injury. 10-Not Attempted due to Environmental Limitations-(lack of equipment, weather restraints, etc.). 88-Not Attempted due to Medical Conditions or Safety Concerns. Weight Bearing Left Lower Extremity: Left Weight Bearing/Tolerated Exercises PROM to (B) LE's Assessment Current Status: Poor Progress Still screams out with any movements and resists all movements even with the good LE. Poor progress and not participating in therapy. PT Short Term Goals Short Term Goals Time Frame: Nov 27, 2022 Roll Left & Right: 3 Sit to lyin Lying to sitting on side of be: 3 Sit to stand: 3 Chair/fuq-vo-kkzml transfer: 3 Toilet transfer: 3 Car transfer: 3 Walk 10 feet: 3 PT Jail Goals Jail Goals PT Jail Goals Time Frame: Nov 30, 2022 Roll Left & Right (QC): 5 Sit to Lying (QC): 5 Lying-Sitting on Side/Bed(QC): 5 Sit to Stand (QC): 5 Chair/Nsm-hw-Zdavp Xfer(QC): 5 Toilet Transfer (QC): 5 Car Transfer (QC): 5 Does the Patient Walk: No and Walking Goal IS indicated Walk 10 feet (QC): 5 Walk 50ft with 2 Turns (QC): 5 PT Plan Treatment/Plan Treatment Plan: Continue Plan of Care Treatment Plan: Bed Mobility, Education, Functional Activity Pa, Functional Strength, Gait, Safety, Therapeutic Exercise, Transfers Treatment Duration: Nov 30, 2022 Frequency: 11 times per week Estimated Hrs Per Day: 1 hour per day Time Time In: 1015 Time Out: 1023 DATE: Nov 24, 2022 Total Billed Treatment Time: 8 Total Billed Treatment 1, EX x 8' ULYSSES UNNES PT Nov 24, 2022 10:35
[2022-11-25] VITALS (7 sets, daily range): BP systolic 133–185; BP diastolic 59–90
[2022-11-25] MEDS: NS IV 1000 ML 1,000 ML IV SCH (01:58)
[2022-11-25 06:10] LABS: BASOPHILS % (AUTO) 0 % (0-10); EOSINOPHILS % (AUTO) 0 % (0-10); HEMATOCRIT 29 % (35-52); HEMOGLOBIN 9.8 g/dL (11.5-16.0); LYMPHOCYTES # (AUTO) 1.6 10^3/uL (1.0-4.0); LYMPHOCYTES % (AUTO) 11 % (12-44); MEAN CORPUSCULAR HEMOGLOBIN 30 pg (25-34); MEAN CORPUSCULAR HGB CONC 34 g/dL (32-36); MEAN CORPUSCULAR VOLUME 88 fL (80-99); MEAN PLATELET VOLUME 10.5 fL (9.0-12.2); MONOCYTES # (AUTO) 1.3 10^3/uL (0.0-1.0); MONOCYTES % (AUTO) 9 % (0-12); NEUTROPHILS # (AUTO) 11.3 10^3/uL (1.8-7.8); NEUTROPHILS % (AUTO) 79 % (42-75); PLATELET COUNT 200 10^3/uL (130-400); WHITE BLOOD COUNT 14.3 10^3/uL (4.3-11.0)
[2022-11-25 06:41] LABS: ALBUMIN 2.4 GM/DL (3.2-4.5); BILIRUBIN,TOTAL 0.3 MG/DL (0.1-1.0); CALCIUM 7.7 MG/DL (8.5-10.1); CREATININE SERUM 0.72 MG/DL (0.60-1.30); POTASSIUM 3.8 MMOL/L (3.6-5.0); TOTAL PROTEIN 5.1 GM/DL (6.4-8.2)
[2022-11-25] MEDS: DOCUSATE SODIUM 100 MG (COLACE) CAP PO SCH ×2 (08:41→20:24)
[2022-11-25] MEDS ORDERED: CYAN500T8 PO (09:07)
[2022-11-25] MEDS ORDERED: POTA99TA26 PO (09:07)
[2022-11-25] MEDS ORDERED: LISI1TAB46 PO (09:07)
[2022-11-25] MEDS ORDERED: DONE10TA41 PO (09:07)
[2022-11-25] MEDS ORDERED: SENNA W/DOCUSATE (SENOKOT S) TABLET PO NR (09:30)
[2022-11-25] MEDS ORDERED: LACTULOSE SYRUP 10GM/15ML (ENULOSE) 30ML UDC PO NR (09:30)
--- NOTE | 2022-11-25 09:53 | Physical Therapy Daily Note ---
PT Daily Note-Current Subjective Patient very agitated with all mobility. Family present. Pain Section J - Health Conditions 1. Rarely or not at all 2. Occasionally 3. Frequently 4. Almost constantly 8. Unable to answer Pain Effect on Sleep: 8 Pain Interference with Therapy: 8 Pain Interference w/Day-to-Day: 8 Mental Status Patient Orientation: Confused Transfers SCALE: Activities may be completed with or without assistive devices. 0-Ynblterlls-euffyec completes the activity by him/herself with no assistance from a helper. 5-Set-up or Clean-up Assistance-helper sets up or cleans up; patient completes activity. [place] assists only prior to or following the activity. 4-Supervision or Touching Assistance-helper provides verbal cues and/or touching/steadying and/or contact guard assistance as patient completes activity. Assistance may be provided throughout the activity or intermittently. 3-Partial/Moderate Assistance-helper does LESS THAN HALF the effort. [place] lifts, holds or supports trunk or limbs, but provides less than half the effort. 2-Substantial/Maximal Assistance-helper does MORE THAN HALF the effort. [place] lifts or holds trunk or limbs and provides more than half the effort. 6-Qddwiiohi-nchmap does ALL the effort. Patient does none of the effort to complete the activity. Or, the assistance of 2 or more helpers is required for the patient to complete the activity. If activity was not attempted, code reason: 7-Patient Refused. 9-Not Applicable-not attempted and the patient did not perform the activity before the current illness, exacerbation or injury. 10-Not Attempted due to Environmental Limitations-(lack of equipment, weather restraints, etc.). 88-Not Attempted due to Medical Conditions or Safety Concerns. Lying to Sitting/Side of Bed(Q: 1 Sit to Stand (QC): 1 Chair/Cty-xn-Rqtxb Xfer(QC): 1 Weight Bearing Left Lower Extremity: Left Weight Bearing/Tolerated Gait Training Does the Patient Walk?: No and Walking Goal IS indicated Exercises Seated Therapy Exercises: Ankle pumps, Long arc quads Seated Reps: 15 (AAROM bilaterally) Assessment Patient has difficulty with following simple direction on this date. Patient is resistive with all mobility. PT to increase activity as tolerated by patient. PT Short Term Goals Short Term Goals Time Frame: Nov 27, 2022 Roll Left & Right: 3 Sit to lyin Lying to sitting on side of be: 3 Sit to stand: 3 Chair/evc-ny-qyowk transfer: 3 Toilet transfer: 3 Car transfer: 3 Walk 10 feet: 3 PT Facilities Director Goals Fdc Goals PT Facilities Director Goals Time Frame: Nov 30, 2022 Roll Left & Right (QC): 5 Sit to Lying (QC): 5 Lying-Sitting on Side/Bed(QC): 5 Sit to Stand (QC): 5 Chair/Ihi-ja-Zycpr Xfer(QC): 5 Toilet Transfer (QC): 5 Car Transfer (QC): 5 Does the Patient Walk: No and Walking Goal IS indicated Walk 10 feet (QC): 5 Walk 50ft with 2 Turns (QC): 5 PT Plan Treatment/Plan Treatment Plan: Continue Plan of Care Treatment Plan: Bed Mobility, Education, Functional Activity Pa, Functional Strength, Gait, Safety, Therapeutic Exercise, Transfers Treatment Duration: Nov 30, 2022 Frequency: 11 times per week Estimated Hrs Per Day: 1 hour per day Time Time In: 830 Time Out: 841 DATE: Nov 25, 2022 Total Billed Treatment Time: 11 Total Billed Treatment 1 visit FA 11 min CALLY LOBO PT Nov 25, 2022 09:53
--- NOTE | 2022-11-25 11:04 | Progress Note - Hospitalist ---
JAKE COSTELLO I 11/25/22 1104: Subjective HPI/CC On Admission Date Seen by Provider: Nov 25, 2022 Time Seen by Provider: 10:00 CC: Left hip pain HPI: Olivia Ritter is a 67 year old female with a past medical history of alzheimer's dementia admitted from [facility] for operative management after discovering she had a displaced femoral neck fracture. 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 Per ED note, she was found to be neurovascularly intact and not taking anticoagulation. Orthopedic consultation was obtained, and operative management was scheduled for the afternoon of 11/22. Medicine is consulted for postoperative medical management. Subjective/Events-last exam Today is POD 3. Seen in chair today. Moving with therapy. Bowels have not yet moved following surgery. Complains of continued expected post op pain. Plan on uriarte removal today. Objective Exam Vital Signs Vital Signs Date Time Temp Pulse Resp B/P (MAP) Pulse Ox O2 Delivery O2 Flow Rate FiO2 11/25/22 11:28 36.9 97 20 142/74 (96) 99 Room Air 11/24/22 08:00 2.00 Capillary Refill : Less Than 3 Seconds Results/Procedures Lab Laboratory Tests 11/25/22 05:58 Patient resulted labs reviewed. Assessment/Plan Assessment and Plan Assess & Plan/Chief Complaint Left hip fx - CXR: Impacted,significantly foreshortened left femoral neck fracture. - Surgical management per Orthopedics - ORIF 11/22 - On Clindamycin postoperatively - Pain meds PRN - Continued PT/OT cares - DVT ppx Dementia - Continue cares - medications reviewed Leukocytosis - Afebrile - Likely due to stress of injury - On abx - Will monitor Bed bug infestation - PPE Clinical Quality Measures DVT/VTE Risk/Contraindication: Contraindications-Pharm: Other *list below* Other: surgery FRANCIA DORMAN DO 11/26/22 0507: Objective Exam General Appearance: No Apparent Distress, WD/WN, Chronically ill Assessment/Plan Assessment and Plan Assess & Plan/Chief Complaint Explore NHP versus home Supervisory-Addendum Brief Verification & Attestation Participated in pt care: history, MDM, physical Personally performed: exam, history, MDM, supervision of care Care discussed with: Medical Student Procedures: n/a Results interpretation: Verified all documentation Verification and Attestation of Medical Student E/M Service A medical student performed and documented this service in my presence. I reviewed and verified all information documented by the medical student and made modifications to such information, when appropriate. I personally performed the physical exam and medical decision making. Francia Dorman, Nov 26, 2022,05:07 JAKE COSTELLO I Nov 25, 2022 11:04 FRANCIA DORMAN DO Nov 26, 2022 05:07
--- NOTE | 2022-11-25 11:17 | Progress Note - Ortho ---
Progress Note Subjective Date of Exam 11/25/22 Chief Complaint POD #3 s/p Prosthetic Replacement of Left Femoral Neck Fracture HPI/Events since last exam slow progress with therapy, pain controlled, daughter would like placement in [facility] if able Review of Systems - Allergies: Coded Allergies: Penicillins (Verified Allergy, Unknown, 11/22/22) Home Meds Reported Medications Potassium Gluconate (Potassium) 595 Mg (99 Mg) Tablet, 99 MG PO 1500, TAB 11/25/22 Lisinopril/Hydrochlorothiazide (Lisinopril-Hctz 20-12.5 mg Tab) 20 Mg-12.5 Mg Tablet, 1 EACH PO 1500, TAB 11/25/22 Cyanocobalamin (Vitamin B-12) (Vitamin B-12) 500 Mcg Tablet, 500 MCG PO 1500, TAB 11/25/22 Donepezil HCl (Donepezil HCl) 10 Mg Tablet, 10 MG PO 1500, TAB 11/25/22 Objective Exam L Hip: Dressing C/D/I, +DF of ankle, no s/s of DVT Vital Signs Vital Signs Date Time Temp Pulse Resp B/P (MAP) Pulse Ox O2 Delivery O2 Flow Rate FiO2 11/25/22 08:00 96 Room Air 11/25/22 07:23 36.8 87 20 133/59 (83) 96 Room Air 11/25/22 03:59 36.9 88 16 140/64 (89) 99 Room Air 11/24/22 23:44 36.4 95 16 170/81 (110) 96 Room Air 11/24/22 20:00 93 Room Air 11/24/22 19:27 36.7 96 20 167/74 (105) 93 Room Air 11/24/22 18:51 94 Room Air 11/24/22 15:35 37.0 102 20 178/80 (112) 94 Room Air 11/24/22 11:46 36.9 104 20 165/76 (105) 94 Room Air I & O 11/25/22 07:00 Intake Total 1690 ml Output Total 875 ml Balance 815 ml Lab Results Laboratory Tests 11/25/22 05:58: White Blood Count 14.3H, Red Blood Count 3.25L, Hemoglobin 9.8L, Hematocrit 29L, Mean Corpuscular Volume 88, Mean Corpuscular Hemoglobin 30, Mean Corpuscular Hemoglobin Concent 34, Red Cell Distribution Width 12.4, Platelet Count 200, Mean Platelet Volume 10.5, Immature Granulocyte % (Auto) 0, Neutrophils (%) (Auto) 79H, Lymphocytes (%) (Auto) 11L, Monocytes (%) (Auto) 9, Eosinophils (%) (Auto) 0, Basophils (%) (Auto) 0, Neutrophils # (Auto) 11.3H, Lymphocytes # (Auto) 1.6, Monocytes # (Auto) 1.3H, Eosinophils # (Auto) 0.0, Basophils # (Auto) 0.0, Immature Granulocyte # (Auto) 0.1, Sodium Level 135, Potassium Level 3.8, Chloride Level 108H, Carbon Dioxide Level 21, Anion Gap 6, Blood Urea Ni trogen 15, Creatinine 0.72, Estimat Glomerular Filtration Rate 92, BUN/Creatinine Ratio 21, Glucose Level 105, Calcium Level 7.7L, Corrected Calcium 9.0, Total Bilirubin 0.3, Aspartate Amino Transf (AST/SGOT) 13, Alanine Aminotransferase (ALT/SGPT) 14, Alkaline Phosphatase 44, Total Protein 5.1L, Albumin 2.4L Assessment and Plan Assessment Left Femoral Neck Fracture s/p Prosthetic Replacement Problem List Left Femoral Neck Fracture s/p Prosthetic Replacement Plan PT DVT Prophylaxis Discussed that I am out the remainder of this week and will be available by call or text for any questions. Final Diagonsis Left Femoral Neck Fracture s/p Prosthetic Replacement Level of the visit: Level 3 (global) Clinical Quality Measures DVT/VTE Risk/Contraindication: Contraindications-Pharm: Other *list below* Other: surgery KINZA JASON MD Nov 25, 2022 11:16
--- NOTE | 2022-11-25 13:58 | Physical Therapy Progress Note ---
Therapy Progress Note PT attempt to exercise patient. Patient became highly agitate and yelled, "NO!" repeatedly. session ceased. PT to attempt tomorrow a.m. 1 ref CALLY LOBO PT Nov 25, 2022 13:58
[2022-11-25] MEDS: HYDROmorphone 2 MG/ML VIAL (DILAUDID) IV PRN ×2 (18:19→20:24)
[2022-11-25] MEDS: MELATONIN 3 MG TABLET PO PRN (22:35)
[2022-11-26] VITALS (9 sets, daily range): BP systolic 144–199; BP diastolic 68–94
[2022-11-26 05:51] LABS: BASOPHILS % (AUTO) 0 % (0-10); EOSINOPHILS # (AUTO) 0.1 10^3/uL (0.0-0.3); EOSINOPHILS % (AUTO) 1 % (0-10); HEMATOCRIT 28 % (35-52); HEMOGLOBIN 9.5 g/dL (11.5-16.0); LYMPHOCYTES # (AUTO) 0.9 10^3/uL (1.0-4.0); LYMPHOCYTES % (AUTO) 9 % (12-44); MEAN CORPUSCULAR HEMOGLOBIN 30 pg (25-34); MEAN CORPUSCULAR HGB CONC 34 g/dL (32-36); MEAN CORPUSCULAR VOLUME 88 fL (80-99); MONOCYTES # (AUTO) 0.8 10^3/uL (0.0-1.0); MONOCYTES % (AUTO) 8 % (0-12); NEUTROPHILS # (AUTO) 8.2 10^3/uL (1.8-7.8); NEUTROPHILS % (AUTO) 82 % (42-75); PLATELET COUNT 217 10^3/uL (130-400); WHITE BLOOD COUNT 9.9 10^3/uL (4.3-11.0)
[2022-11-26 06:07] LABS: ALBUMIN 2.5 GM/DL (3.2-4.5); BILIRUBIN,TOTAL 0.5 MG/DL (0.1-1.0); CALCIUM 7.9 MG/DL (8.5-10.1); CREATININE SERUM 0.67 MG/DL (0.60-1.30); POTASSIUM 3.7 MMOL/L (3.6-5.0); TOTAL PROTEIN 5.4 GM/DL (6.4-8.2)
[2022-11-26] MEDS: HYDROmorphone 2 MG/ML VIAL (DILAUDID) IV PRN ×2 (06:17→18:28)
[2022-11-26] MEDS: BETHANECHOL 25 MG (URECHOLINE) TAB PO SCH ×4 (06:21→20:22)
[2022-11-26] MEDS: DOCUSATE SODIUM 100 MG (COLACE) CAP PO SCH ×2 (09:13→20:35)
[2022-11-26] MEDS ORDERED: lisINopril 20 MG (PRINIVIL) TABLET PO NR (09:30)
--- NOTE | 2022-11-26 09:50 | Physical Therapy Daily Note ---
PT Daily Note-Current Subjective Patient agrees to PT. Family present. Pain Section J - Health Conditions 1. Rarely or not at all 2. Occasionally 3. Frequently 4. Almost constantly 8. Unable to answer Pain Effect on Sleep: 8 Pain Interference with Therapy: 8 Pain Interference w/Day-to-Day: 8 Mental Status Patient Orientation: Confused Transfers SCALE: Activities may be completed with or without assistive devices. 6-Oaanvapndo-mnyfggn completes the activity by him/herself with no assistance from a helper. 5-Set-up or Clean-up Assistance-helper sets up or cleans up; patient completes activity. [place] assists only prior to or following the activity. 4-Supervision or Touching Assistance-helper provides verbal cues and/or touching/steadying and/or contact guard assistance as patient completes activity. Assistance may be provided throughout the activity or intermittently. 3-Partial/Moderate Assistance-helper does LESS THAN HALF the effort. [place] lifts, holds or supports trunk or limbs, but provides less than half the effort. 2-Substantial/Maximal Assistance-helper does MORE THAN HALF the effort. [place] lifts or holds trunk or limbs and provides more than half the effort. 7-Gsqdooxtj-ruqpgt does ALL the effort. Patient does none of the effort to complete the activity. Or, the assistance of 2 or more helpers is required for the patient to complete the activity. If activity was not attempted, code reason: 7-Patient Refused. 9-Not Applicable-not attempted and the patient did not perform the activity before the current illness, exacerbation or injury. 10-Not Attempted due to Environmental Limitations-(lack of equipment, weather restraints, etc.). 88-Not Attempted due to Medical Conditions or Safety Concerns. Lying to Sitting/Side of Bed(Q: 2 Sit to Stand (QC): 2 (x 2 sets to FWW) Chair/Uar-wg-Bpgyl Xfer(QC): 2 (SPT due to inability to advance left LE ) Weight Bearing Left Lower Extremity: Left Weight Bearing/Tolerated Exercises Supine Ex: Ankle pumps, Heel Slides Supine Reps: 15 (PROM left LE/AAROM right LE) Seated Therapy Exercises: Ankle pumps, Long arc quads Seated Reps: 15 (AROM) Assessment Patient tolerated treatment well and is up in recliner with breakfast in situ. Patient unable to advance left LE in stand to attempt ambulation due to yelling in pain. Family present during session. PT Short Term Goals Short Term Goals Time Frame: Nov 27, 2022 Roll Left & Right: 3 Sit to lyin Lying to sitting on side of be: 3 Sit to stand: 3 Chair/qyj-bb-ndeni transfer: 3 Toilet transfer: 3 Car transfer: 3 Walk 10 feet: 3 PT Statistical Financial Analyst Goals Statistical Financial Analyst Goals PT Mcfp Goals Time Frame: Nov 30, 2022 Roll Left & Right (QC): 5 Sit to Lying (QC): 5 Lying-Sitting on Side/Bed(QC): 5 Sit to Stand (QC): 5 Chair/Kwt-zr-Nzpdy Xfer(QC): 5 Toilet Transfer (QC): 5 Car Transfer (QC): 5 Does the Patient Walk: No and Walking Goal IS indicated Walk 10 feet (QC): 5 Walk 50ft with 2 Turns (QC): 5 PT Plan Treatment/Plan Treatment Plan: Continue Plan of Care Treatment Plan: Bed Mobility, Education, Functional Activity Pa, Functional Strength, Gait, Safety, Therapeutic Exercise, Transfers Treatment Duration: Nov 30, 2022 Frequency: 11 times per week Estimated Hrs Per Day: 1 hour per day Time Time In: 725 Time Out: 749 DATE: Nov 26, 2022 Total Billed Treatment Time: 24 Total Billed Treatment 1 visit EX x 2 24 min CALLY LOBO PT Nov 26, 2022 09:50
--- NOTE | 2022-11-26 10:40 | Progress Note - Hospitalist ---
JAKE COSTELLO I 11/26/22 1040: Subjective HPI/CC On Admission CC: Left hip pain HPI: Olivia Ritter is a 67 year old female with a past medical history of alzheimer's dementia admitted from [facility] for operative management after discovering she had a displaced femoral neck fracture. 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 Per ED note, she was found to be neurovascularly intact and not taking anticoagulation. Orthopedic consultation was obtained, and operative management was scheduled for the afternoon of 11/22. Medicine is consulted for postoperative medical management. Subjective/Events-last exam Today is POD 4 for L femoral neck fracture repair. According to daughter, who is present in the room, her pain was not well managed last night, but seems to be doing better this morning. When asked about her pain, she replies "I don't know" and continues to watch TV. Per nursing, no urine output overnight with subsequent bladder scan revealing 435 mL. Denies abdominal pain, suprapubic tenderness, cough, or chest pain. Objective Exam Vital Signs Vital Signs Date Time Temp Pulse Resp B/P (MAP) Pulse Ox O2 Delivery O2 Flow Rate FiO2 11/26/22 08:00 96 Room Air 11/26/22 07:55 35.7 94 18 161/79 (106) 11/24/22 08:00 2.00 Capillary Refill : Less Than 3 Seconds General Appearance: No Apparent Distress, WD/WN HEENT: PERRL/EOMI, TMs Normal, Normal ENT Inspection, Pharynx Normal, Moist Mucous Membranes Neck: Full Range of Motion, Normal Inspection, Non Tender, Supple, Carotid Bruit Respiratory: Chest Non Tender, Lungs Clear, Normal Breath Sounds Cardiovascular: Regular Rate, Rhythm, No Edema, No Gallop, No JVD, No Murmur, Normal Peripheral Pulses Gastrointestinal: Normal Bowel Sounds, Non Tender, Soft (Obese) Back: Normal Inspection, No CVA Tenderness, No Vertebral Tenderness Extremity: Normal Inspection, Normal Range of Motion, Other (No apparent erythema around operative site) Neurologic/Psychiatric: Alert (Not oriented to place or time, d/t dementia) Skin: Normal Color, Warm/Dry Lymphatic: No Adenopathy Results/Procedures Lab Laboratory Tests 11/26/22 05:30 Patient resulted labs reviewed. Imaging: Reviewed Imaging Films, Reviewed Imaging Report Assessment/Plan Assessment and Plan Assess & Plan/Chief Complaint Left hip fx - CXR: Impacted, significantly foreshortened left femoral neck fracture. - Surgical management per Orthopedics - ORIF 11/22 - On Clindamycin postoperatively - Pain meds PRN - Continued PT/OT cares - DVT ppx Post operative Urinary retention (POUR) - Bethanacol 25mg PRN TID on empty stomach or 2 hr after meals - Hot pad overlying bladder - Increase fluid consumption - Increased ambulation Dementia - Continue cares - donepezil 10mg restarted HTN - Start lisinopril 20 - Avoiding HCTZ for risk of Hyponatremia Bed bug infestation - PPE Leukocytosis (resolved) - Afebrile - Likely due to stress of injury - On abx - Will monitor Clinical Quality Measures DVT/VTE Risk/Contraindication: Contraindications-Pharm: Other *list below* Other: surgery FRANCIA DORMAN DO 11/27/22 0607: Subjective HPI/CC On Admission Date Seen by Provider: Nov 26, 2022 Time Seen by Provider: 09:00 Assessment/Plan Assessment and Plan Assess & Plan/Chief Complaint Await [facility] Supervisory-Addendum Brief Verification & Attestation Participated in pt care: history, MDM, physical Personally performed: exam, history, MDM, supervision of care Care discussed with: Medical Student Procedures: n/a Results interpretation: Verified all documentation Verification and Attestation of Medical Student E/M Service A medical student performed and documented this service in my presence. I reviewed and verified all information documented by the medical student and made modifications to such information, when appropriate. I personally performed the physical exam and medical decision making. Francia Dorman, Nov 27, 2022,06:06 JAKE COSTELLO I Nov 26, 2022 10:40 FRANCIA DORMAN DO Nov 27, 2022 06:07
[2022-11-26] MEDS: ENOXAPARIN 40 MG/0.4 ML (LOVENOX) SYR SC SCH (11:36)
--- NOTE | 2022-11-26 13:42 | Physical Therapy Daily Note ---
PT Daily Note-Current Subjective Patient on commode. Incontinent BM. PCT present. Pain Section J - Health Conditions 1. Rarely or not at all 2. Occasionally 3. Frequently 4. Almost constantly 8. Unable to answer Pain Effect on Sleep: 8 Pain Interference with Therapy: 8 Pain Interference w/Day-to-Day: 8 Mental Status Patient Orientation: Confused Transfers SCALE: Activities may be completed with or without assistive devices. 9-Aeqsnfukzg-nuggnmi completes the activity by him/herself with no assistance from a helper. 5-Set-up or Clean-up Assistance-helper sets up or cleans up; patient completes activity. [place] assists only prior to or following the activity. 4-Supervision or Touching Assistance-helper provides verbal cues and/or touching/steadying and/or contact guard assistance as patient completes activity. Assistance may be provided throughout the activity or intermittently. 3-Partial/Moderate Assistance-helper does LESS THAN HALF the effort. [place] lifts, holds or supports trunk or limbs, but provides less than half the effort. 2-Substantial/Maximal Assistance-helper does MORE THAN HALF the effort. [place] lifts or holds trunk or limbs and provides more than half the effort. 8-Rdagzmnbi-fcqayg does ALL the effort. Patient does none of the effort to complete the activity. Or, the assistance of 2 or more helpers is required for the patient to complete the activity. If activity was not attempted, code reason: 7-Patient Refused. 9-Not Applicable-not attempted and the patient did not perform the activity before the current illness, exacerbation or injury. 10-Not Attempted due to Environmental Limitations-(lack of equipment, weather restraints, etc.). 88-Not Attempted due to Medical Conditions or Safety Concerns. Sit to Lying (QC): 1 Sit to Stand (QC): 2 Chair/Dic-qr-Fvqoc Xfer(QC): 2 max assist x 4 sets of sit to stand to allow PCT to cleanse after multiple BM's Weight Bearing Left Lower Extremity: Left Weight Bearing/Tolerated Exercises Supine Ex: Ankle pumps, Heel Slides, Straight leg raise Supine Reps: 12 (PROM) Treatments PT performed sit to stand transfers with use of gait belt and blocking bilateral knees. Patient returned to bed by PT. Bilateral LE PROM performed. Noted redness bilateral heels with pillow placement under LE's to allow heel pressure relief. RN notified. Assessment Patient in bed with needs met. PT to continue to increase activity as tolerated by patient. Patient continues to have difficulty with weight bear tolerance left LE due to pain. PT Short Term Goals Short Term Goals Time Frame: Nov 27, 2022 Roll Left & Right: 3 Sit to lyin Lying to sitting on side of be: 3 Sit to stand: 3 Chair/yxa-tw-nvqdd transfer: 3 Toilet transfer: 3 Car transfer: 3 Walk 10 feet: 3 PT Shelter Goals Stonecutter Goals PT Stonecutter Goals Time Frame: Nov 30, 2022 Roll Left & Right (QC): 5 Sit to Lying (QC): 5 Lying-Sitting on Side/Bed(QC): 5 Sit to Stand (QC): 5 Chair/Rmo-cu-Arumd Xfer(QC): 5 Toilet Transfer (QC): 5 Car Transfer (QC): 5 Does the Patient Walk: No and Walking Goal IS indicated Walk 10 feet (QC): 5 Walk 50ft with 2 Turns (QC): 5 PT Plan Treatment/Plan Treatment Plan: Continue Plan of Care Treatment Plan: Bed Mobility, Education, Functional Activity Pa, Functional Strength, Gait, Safety, Therapeutic Exercise, Transfers Treatment Duration: Nov 30, 2022 Frequency: 11 times per week Estimated Hrs Per Day: 1 hour per day Time Time In: 1305 Time Out: 1329 DATE: Nov 26, 2022 Total Billed Treatment Time: 24 Total Billed Treatment 1 visit EX x 2 24 min CALLY LOBO PT Nov 26, 2022 13:42
[2022-11-26] MEDS ORDERED: DONEPEZIL 10 MG (ARICEPT) TAB PO SCH (15:00)
[2022-11-26] MEDS ORDERED: NON-FORMULARY MEDICATION 1 EA EA (Potassium Gluconate (Potassium) 99 MG) PO SCH (15:00)
[2022-11-26] MEDS ORDERED: CYANOCOBALAMIN 1,000 MCG (VITAMIN B-12) TABLET PO SCH (15:00)
[2022-11-26] MEDS ORDERED: LIDOCAINE UROJET 2% GEL 10 ML PKG TOP ONE (18:00)
[2022-11-26] MEDS ORDERED: amLODIPine 5 MG (NORVASC) TAB PO ONE (21:15)
[2022-11-26] MEDS ORDERED: cloNIDine 0.1 MG (CATAPRES) TAB PO ONE (21:15)
[2022-11-26] MEDS: cloNIDine 0.1 MG (CATAPRES) TAB PO PRN (23:13)
[2022-11-27 03:09] VITALS: BP 185/80
[2022-11-27] MEDS: cloNIDine 0.1 MG (CATAPRES) TAB PO PRN (03:12)
[2022-11-27] MEDS: BETHANECHOL 25 MG (URECHOLINE) TAB PO SCH ×2 (05:27→11:31)
[2022-11-27 05:55] LABS: BASOPHILS % (AUTO) 0 % (0-10); EOSINOPHILS % (AUTO) 0 % (0-10); HEMATOCRIT 27 % (35-52); HEMOGLOBIN 9.4 g/dL (11.5-16.0); LYMPHOCYTES # (AUTO) 0.8 10^3/uL (1.0-4.0); LYMPHOCYTES % (AUTO) 5 % (12-44); MEAN CORPUSCULAR HEMOGLOBIN 30 pg (25-34); MEAN CORPUSCULAR HGB CONC 35 g/dL (32-36); MEAN CORPUSCULAR VOLUME 86 fL (80-99); MEAN PLATELET VOLUME 10.1 fL (9.0-12.2); MONOCYTES # (AUTO) 1.2 10^3/uL (0.0-1.0); MONOCYTES % (AUTO) 7 % (0-12); NEUTROPHILS # (AUTO) 14.7 10^3/uL (1.8-7.8); NEUTROPHILS % (AUTO) 87 % (42-75); PLATELET COUNT 227 10^3/uL (130-400); WHITE BLOOD COUNT 16.8 10^3/uL (4.3-11.0)
[2022-11-27 06:19] LABS: ALBUMIN 2.5 GM/DL (3.2-4.5); BILIRUBIN,TOTAL 0.7 MG/DL (0.1-1.0); CALCIUM 7.9 MG/DL (8.5-10.1); CREATININE SERUM 0.65 MG/DL (0.60-1.30); POTASSIUM 3.9 MMOL/L (3.6-5.0); TOTAL PROTEIN 5.2 GM/DL (6.4-8.2)
[2022-11-27 07:48] VITALS: BP 134/55
[2022-11-27] MEDS: DOCUSATE SODIUM 100 MG (COLACE) CAP PO SCH (08:18)
--- NOTE | 2022-11-27 08:56 | Physical Therapy Daily Note ---
PT Daily Note-Current Subjective Patient in bed pre tx, doesn't really communicate, yells out in pain with even light touching. Pain Section J - Health Conditions 1. Rarely or not at all 2. Occasionally 3. Frequently 4. Almost constantly 8. Unable to answer Pain Effect on Sleep: 8 Pain Interference with Therapy: 8 Pain Interference w/Day-to-Day: 8 Appearance Patient in recliner post tx with nurse call, phone, tray, family in room. Mental Status Patient Orientation: Person, Confused Attachments: Lepe Catheter Transfers SCALE: Activities may be completed with or without assistive devices. 8-Vuwmnklyft-garnvlh completes the activity by him/herself with no assistance from a helper. 5-Set-up or Clean-up Assistance-helper sets up or cleans up; patient completes activity. [place] assists only prior to or following the activity. 4-Supervision or Touching Assistance-helper provides verbal cues and/or touching /steadying and/or contact guard assistance as patient completes activity. Assistance may be provided throughout the activity or intermittently. 3-Partial/Moderate Assistance-helper does LESS THAN HALF the effort. [place] lifts, holds or supports trunk or limbs, but provides less than half the effort. 2-Substantial/Maximal Assistance-helper does MORE THAN HALF the effort. [place] lifts or holds trunk or limbs and provides more than half the effort. 8-Avqhsmysi-ukrpps does ALL the effort. Patient does none of the effort to complete the activity. Or, the assistance of 2 or more helpers is required for the patient to complete the activity. If activity was not attempted, code reason: 7-Patient Refused. 9-Not Applicable-not attempted and the patient did not perform the activity before the current illness, exacerbation or injury. 10-Not Attempted due to Environmental Limitations-(lack of equipment, weather restraints, etc.). 88-Not Attempted due to Medical Conditions or Safety Concerns. Roll Left & Right (QC): 1 Lying to Sitting/Side of Bed(Q: 1 Sit to Stand (QC): 2 Chair/Ctd-ax-Kqeno Xfer(QC): 2 stand pivot transfer to recliner Weight Bearing Left Lower Extremity: Left Weight Bearing/Tolerated Exercises Seated Therapy Exercises: Long arc quads Seated Reps: 10 (AAROM) Treatments bed mobility and transfers, LE ROM Assessment Current Status: Poor Progress very little participation PT Short Term Goals Short Term Goals Time Frame: Nov 27, 2022 Roll Left & Right: 3 Sit to lyin Lying to sitting on side of be: 3 Sit to stand: 3 Chair/ipe-op-hagra transfer: 3 Toilet transfer: 3 Car transfer: 3 Walk 10 feet: 3 PT Foam Machine Operator Goals Foam Machine Operator Goals PT Foam Machine Operator Goals Time Frame: Nov 30, 2022 Roll Left & Right (QC): 5 Sit to Lying (QC): 5 Lying-Sitting on Side/Bed(QC): 5 Sit to Stand (QC): 5 Chair/Lcl-wh-Pkuwq Xfer(QC): 5 Toilet Transfer (QC): 5 Car Transfer (QC): 5 Does the Patient Walk: No and Walking Goal IS indicated Walk 10 feet (QC): 5 Walk 50ft with 2 Turns (QC): 5 PT Plan Problem List Problem List: Activity Tolerance, Functional Strength, Safety, Balance, Gait, Transfer, Bed Mobility, ROM Treatment/Plan Treatment Plan: Continue Plan of Care Treatment Plan: Bed Mobility, Education, Functional Activity Pa, Functional Strength, Gait, Safety, Therapeutic Exercise, Transfers Treatment Duration: Nov 30, 2022 Frequency: 11 times per week Estimated Hrs Per Day: 1 hour per day Safety Risks/Education Patient Education: Transfer Techniques, Correct Positioning, Safety Issues Teaching Recipient: Patient Teaching Methods: Demonstration, Discussion Response to Teaching: Reinforcement Needed Time Time In: 0830 Time Out: 0840 DATE: Nov 27, 2022 Total Billed Treatment Time: 10 Total Billed Treatment 1 visit FA 10ORLIN REAL PT Nov 27, 2022 08:56
[2022-11-27] MEDS ORDERED: lisINopril 20 MG (PRINIVIL) TABLET PO SCH (09:00)
[2022-11-27] MEDS ORDERED: amLODIPine 5 MG (NORVASC) TAB PO SCH (09:00)
--- NOTE | 2022-11-27 09:37 | Progress Note - Hospitalist ---
Subjective HPI/CC On Admission Date Seen by Provider: Nov 27, 2022 Time Seen by Provider: 09:00 CC: Left hip pain HPI: Olivia Ritter is a 67 year old female with a past medical history of alzheimer's dementia admitted from [facility] for operative management after discovering she had a displaced femoral neck fracture. 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 Per ED note, she was found to be neurovascularly intact and not taking anticoagulation. Orthopedic consultation was obtained, and operative management was scheduled for the afternoon of 11/22. Medicine is consulted for postoperative medical management. Objective Exam Vital Signs Vital Signs Date Time Temp Pulse Resp B/P (MAP) Pulse Ox O2 Delivery O2 Flow Rate FiO2 11/27/22 11:21 36.8 83 20 132/65 (87) 98 Room Air 11/24/22 08:00 2.00 Capillary Refill : Less Than 3 Seconds Results/Procedures Lab Laboratory Tests 11/27/22 05:30 Patient resulted labs reviewed. Imaging: Reviewed Imaging Films, Reviewed Imaging Report Assessment/Plan Assessment and Plan Assess & Plan/Chief Complaint Await [facility] Clinical Quality Measures DVT/VTE Risk/Contraindication: Contraindications-Pharm: Other *list below* Other: surgery NELA DORMAN DO Nov 27, 2022 09:37
[2022-11-27 11:21] VITALS: BP 132/65
[2022-11-27] MEDS: ENOXAPARIN 40 MG/0.4 ML (LOVENOX) SYR SC SCH (11:31)
[2022-11-27] MEDS ORDERED: OXC5T PO (12:48)
[2022-11-27] MEDS ORDERED: ACET325T49 PO (12:48)
[2022-11-27] MEDS ORDERED: BETH25TA2 PO (12:48)
[2022-11-27] MEDS ORDERED: ONDA4TAB11 PO (12:48)
[2022-11-27] MEDS ORDERED: AMLO-250 PO (12:48)
[2022-11-27] MEDS ORDERED: ENOX40DI8 SC (12:48)
[2022-11-27] MEDS ORDERED: LISI20TA26 PO (12:48)
[2022-11-27] MEDS ORDERED: CLN.1T PO (12:48)
[2022-11-27] MEDS ORDERED: LORA-404 PO (12:48)
[2022-11-27] MEDS ORDERED: DONE10TA41 PO (12:48)
[2022-11-27] MEDS ORDERED: POLY17PO54 PO (12:48)
[2022-11-27] MEDS ORDERED: CYAN500T8 PO (12:48)
[2022-11-27] MEDS ORDERED: DOCU100C37 PO (12:48)
[2022-11-27] MEDS ORDERED: POTA99TA26 PO (12:48)
--- NOTE | 2022-11-27 12:52 | Discharge Inst-Skilled Nursing ---
Discharge Inst-Skilled NF Reconcile Patient Problems Problems Reviewed?: Yes Chief Complaint CC: Left hip pain HPI: Olivia Ritter is a 67 year old female with a past medical history of alzheimer's dementia admitted from [place] ED for operative management after discovering she had a displaced femoral neck fracture. 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 Per ED note, she was found to be neurovascularly intact and not taking anticoagulation. Orthopedic consultation was obtained, and operative management was scheduled for the afternoon of 11/22. Medicine is consulted for postoperative medical management. Patient Instructions Patient Problems: Hip fracture Goal: Return home Consult/Follow Up/Orders Follow Up Appt.: PCP 1 week Skilled NF Admit to: Certification (SNF) I certify that SNF services are required to be given on an inpatient basis because of the above named patient's need for shelter care on a continuing basis for the conditions(s) for which he/she was receiving inpatient hospital services prior to his/her transfer to the SNF. [facility] Facility Order: Nursing Services, Production Team Manager-Evaluate & Treat, Physical Therapy-Evaluate & Treat Oxygen Delivery Method: Room Air Discharge Diet: No Restrictions Resuscitation Status: Full Code New & Resume Previous Orders New Medications: Lorazepam (Ativan) 0.5 Mg Tablet 0.5 MG PO TID PRN for ANXIETY, #10 TAB Acetaminophen (Acetaminophen) 325 Mg Tablet 650 MG PO Q4H PRN for TEMPERATURE, #30 TAB Amlodipine Besylate (Amlodipine Besylate) 5 Mg Tablet 5 MG PO DAILY, #30 TAB Bethanechol Chloride (Bethanechol Chloride) 25 Mg Tablet 25 MG PO ACHS, #120 TAB Clonidine HCl (Clonidine HCl) 0.1 Mg Tablet 0.1 MG PO Q4HR PRN for sbp>160, #10 TAB Docusate Sodium (Docusate Sodium) 100 Mg Capsule 100 MG PO BID, #60 CAP Enoxaparin Sodium (Enoxaparin Sodium) 40 Mg/0.4 Ml Syringe 40 MG SC Q24H, #14 SYRINGE Lisinopril (Lisinopril) 20 Mg Tablet 20 MG PO DAILY, #30 TAB Ondansetron (Ondansetron Odt) 4 Mg Tab.rapdis 4 MG PO Q6H PRN for NAUSEA/VOMITING-1ST LINE, #10 TAB Oxycodone Hcl (Oxyir Tablet) 5 Mg Tab 5 MG PO Q4HR PRN for PAIN-SEE DOSE INSTRUCTIONS, #30 TAB Polyethylene Glycol 3350 (Polyethylene Glycol 3350) 17 Gram Powd.pack 17 GM PO BID PRN for CONSTIPATION-1ST LINE, #30 EACH Continued Medications: Cyanocobalamin (Vitamin B-12) (Vitamin B-12) 500 Mcg Tablet 500 MCG PO 1500, #30 TAB (This prescription has been renewed) Donepezil HCl (Donepezil HCl) 10 Mg Tablet 10 MG PO 1500, #30 TAB (This prescription has been renewed) Potassium Gluconate (Potassium) 595 Mg (99 Mg) Tablet 99 MG PO 1500, #30 TAB (This prescription has been renewed) Discontinued Medications: Lisinopril/Hydrochlorothiazide (Lisinopril-Hctz 20-12.5 mg Tab) 20 Mg-12.5 Mg Tablet 1 EACH PO 1500, TAB Francia Lanza Nov 27, 2022 12:50 FRANCIA LANZA DO Nov 27, 2022 12:52
--- NOTE | 2022-11-27 12:53 | Discharge Summary ---
Discharge Summary Hospital Course Hospital Course Date of Admission: Nov 22, 2022 at 10:30 Admission Diagnosis : Family Physician/Provider: [place] Date of Discharge: 11/27/22 Discharge Diagnosis: [ ] Hospital Course: [ ] Labs and Pending Lab Test: Laboratory Tests 11/27/22 05:30: White Blood Count 16.8H, Red Blood Count 3.18L, Hemoglobin 9.4L, Hematocrit 27L, Mean Corpuscular Volume 86, Mean Corpuscular Hemoglobin 30, Mean Corpuscular Hemoglobin Concent 35, Red Cell Distribution Width 12.1, Platelet Count 227, Mean Platelet Volume 10.1, Immature Granulocyte % (Auto) 1, Neutrophils (%) (Auto) 87H, Lymphocytes (%) (Auto) 5L, Monocytes (%) (Auto) 7, Eosinophils (%) (Auto) 0, Basophils (%) (Auto) 0, Neutrophils # (Auto) 14.7H, Lymphocytes # (Auto) 0.8L, Monocytes # (Auto) 1.2H, Eosinophils # (Auto) 0.0, Basophils # (Auto) 0.0, Immature Granulocyte # (Auto) 0.1, Sodium Level 130L, Potassium Level 3.9, Chloride Level 100, Carbon Dioxide Level 21, Anion Gap 9, Blood Urea Nitrogen 15, Creatinine 0.65, Estimat Glomerular Filtration Rate 96, BUN/Creatinine Ratio 23, Glucose Level 130H, Calcium Level 7.9L, Corrected Calci um 9.1, Total Bilirubin 0.7, Aspartate Amino Transf (AST/SGOT) 32, Alanine Aminotransferase (ALT/SGPT) 30, Alkaline Phosphatase 65, Total Protein 5.2L, Albumin 2.5L Home Meds Active Ativan (Lorazepam) 0.5 Mg Tablet 0.5 Mg PO TID PRN Ondansetron Odt (Ondansetron) 4 Mg Tab.rapdis 4 Mg PO Q6H PRN Polyethylene Glycol 3350 17 Gram Powd.pack 17 Gm PO BID PRN Docusate Sodium 100 Mg Capsule 100 Mg PO BID Acetaminophen 325 Mg Tablet 650 Mg PO Q4H PRN Oxyir Tablet (Oxycodone HCl) 5 Mg Tab 5 Mg PO Q4HR PRN Lisinopril 20 Mg Tablet 20 Mg PO DAILY Amlodipine Besylate 5 Mg Tablet 5 Mg PO DAILY Clonidine HCl 0.1 Mg Tablet 0.1 Mg PO Q4HR PRN Enoxaparin Sodium 40 Mg/0.4 Ml Syringe 40 Mg SC Q24H Bethanechol Chloride 25 Mg Tablet 25 Mg PO ACHS Potassium (Potassium Gluconate) 595 Mg (99 Mg) Tablet 99 Mg PO 1500 Vitamin B-12 (Cyanocobalamin (Vitamin B-12)) 500 Mcg Tablet 500 Mcg PO 1500 Donepezil HCl 10 Mg Tablet 10 Mg PO 1500 Reported Lisinopril-Hctz 20-12.5 mg Tab (Lisinopril/Hydrochlorothiazide) 20 Mg-12.5 Mg Tablet 1 Each PO 1500 Discharge Instructions Discharge Diet: No Restrictions Discharge Physical Examination Vital Signs Vital Signs Date Time Temp Pulse Resp B/P (MAP) Pulse Ox O2 Delivery O2 Flow Rate FiO2 11/27/22 11:21 36.8 83 20 132/65 (87) 98 Room Air 11/24/22 08:00 2.00 Allergies: Coded Allergies: Penicillins (Verified Allergy, Unknown, 11/22/22) Discharge Summary Date of Admission Nov 22, 2022 at 10:30 Date of Discharge Discharge Date: Nov 27, 2022 Admission Diagnosis Assessment: Left hip fracture Dementia Bed bug infestation Plan: Pain control Repair Discharge Diagnosis Await [facility] Clinical Quality Measures DVT/VTE Risk/Contraindication: Contraindications-Pharm: Other *list below* Other: surgery NELA DORMAN DO Nov 27, 2022 12:53
[2022-11-27] MEDS ORDERED: NITR-65 PO (13:24)
--- NOTE | 2022-11-27 13:25 | Discharge Summary ---
Discharge Summary Hospital Course Was the Problem List Reviewed?: Yes Problems/Dx: (1) Hip fracture, left Status: Acute Hospital Course Date of Admission: Nov 22, 2022 at 10:30 Admission Diagnosis : Family Physician/Provider: [place] Date of Discharge: 11/27/22 Discharge Diagnosis: [ ] Hospital Course: Standard course after admitted for hip fracture underwent uncomplicated repair. Urinary retention did continue so uriarte cath was placed and started on Urecholine and she will continue on that to help regain bladder function. Dementia precluded anything other than a slow recovery. NHP initiated. Labs and Pending Lab Test: Laboratory Tests 11/27/22 05:30: White Blood Count 16.8H, Red Blood Count 3.18L, Hemoglobin 9.4L, Hematocrit 27L, Mean Corpuscular Volume 86, Mean Corpuscular Hemoglobin 30, Mean Corpuscular Hemoglobin Concent 35, Red Cell Distribution Width 12.1, Platelet Count 227, Mean Platelet Volume 10.1, Immature Granulocyte % (Auto) 1, Neutrophils (%) (Auto) 87H, Lymphocytes (%) (Auto) 5L, Monocytes (%) (Auto) 7, Eosinophils (%) (Auto) 0, Basophils (%) (Auto) 0, Neutrophils # (Auto) 14.7H, Lymphocytes # (Auto) 0.8L, Monocytes # (Auto) 1.2H, Eosinophils # (Auto) 0.0, Basophils # (Auto) 0.0, Immature Granulocyte # (Auto) 0.1, Sodium Level 130L, Potassium Level 3.9, Chloride Level 100, Carbon Dioxide Level 21, Anion Gap 9, Blood Urea Nitrogen 15, Creatinine 0.65, Estimat Glomerular Filtration Rate 96, BUN/Creatinine Ratio 23, Glucose Level 130H, Calcium Level 7.9L, Corrected Calcium 9.1, Total Bilirubin 0.7, Aspartate Amino Transf (AST/SGOT) 32, Alanine Aminotransferase (ALT/SGPT) 30, Alkaline Phosphatase 65, Total Protein 5.2L, Albumin 2.5L Home Meds Active Macrobid 100 mg Capsule (Nitrofurantoin Monohyd/M-Cryst) 100 Mg Capsule 1 Tab PO BID Ativan (Lorazepam) 0.5 Mg Tablet 0.5 Mg PO TID PRN Ondansetron Odt (Ondansetron) 4 Mg Tab.rapdis 4 Mg PO Q6H PRN Polyethylene Glycol 3350 17 Gram Powd.pack 17 Gm PO BID PRN Docusate Sodium 100 Mg Capsule 100 Mg PO BID Acetaminophen 325 Mg Tablet 650 Mg PO Q4H PRN Oxyir Tablet (Oxycodone HCl) 5 Mg Tab 5 Mg PO Q4HR PRN Lisinopril 20 Mg Tablet 20 Mg PO DAILY Amlodipine Besylate 5 Mg Tablet 5 Mg PO DAILY Clonidine HCl 0.1 Mg Tablet 0.1 Mg PO Q4HR PRN Enoxaparin Sodium 40 Mg/0.4 Ml Syringe 40 Mg SC Q24H Bethanechol Chloride 25 Mg Tablet 25 Mg PO ACHS Potassium (Potassium Gluconate) 595 Mg (99 Mg) Tablet 99 Mg PO 1500 Vitamin B-12 (Cyanocobalamin (Vitamin B-12)) 500 Mcg Tablet 500 Mcg PO 1500 Donepezil HCl 10 Mg Tablet 10 Mg PO 1500 Assessment/Pt Instructions PCP NH rounds Discharge Planning: <30 minutes discharge planning Discharge Instructions Discharge Diet: No Restrictions Discharge Physical Examination Vital Signs Vital Signs Date Time Temp Pulse Resp B/P (MAP) Pulse Ox O2 Delivery O2 Flow Rate FiO2 11/27/22 11:21 36.8 83 20 132/65 (87) 98 Room Air 11/24/22 08:00 2.00 General Appearance: No Apparent Distress, WD/WN, Chronically ill Allergies: Coded Allergies: Penicillins (Verified Allergy, Unknown, 11/22/22) Discharge Summary Date of Admission Nov 22, 2022 at 10:30 Date of Discharge Discharge Date: Nov 27, 2022 Admission Diagnosis Assessment: Left hip fracture Dementia Bed bug infestation Plan: Pain control Repair Discharge Diagnosis Await [facility] Clinical Quality Measures DVT/VTE Risk/Contraindication: Contraindications-Pharm: Other *list below* Other: surgery NELA DORMAN DO Nov 27, 2022 13:25
[2022-11-27 14:00] VITALS: BP 132/65
[2022-11-27 14:49] LABS: BILIRUBIN,URINE NEGATIVE (NEGATIVE); CLARITY,URINE SL CLOUDY; COLOR,URINE YELLOW; GLUCOSE, URINE (UA) NEGATIVE (NEGATIVE); KETONES,URINE NEGATIVE (NEGATIVE); LEUKOCYTE ESTERASE ,URINE 1+ (NEGATIVE); NITRITE,URINE NEGATIVE (NEGATIVE); PH,URINE 5.5 (5-9); PROTEIN,URINE TRACE (NEGATIVE)
[2022-11-27 15:18] LABS: RBC,URINE 0-2 /HPF
[2022-11-27 15:19] LABS: BACTERIA,URINE FEW /HPF; CALCIUM OXALATE CRYSTALS,UR FEW /LPF
== END 2022-11-27 14:00 | DRG 522 ==
LOC: ER FS 07:37 → 4TH 10:30
PROVIDERS: ADMIT Internal Medicine; ATTEND Internal Medicine
PROC: 0SRS0JA Replacement of Left Hip Joint, Femoral Surface with Synthetic Substitute, Uncemented, Open Approach (ICD-10-PCS; principal; 2022-11-22 14:38)
DX: S72.002A Fracture of unspecified part of neck of left femur, initial encounter for closed fracture (principal); G30.9 Alzheimer's disease, unspecified; F02.80 Dementia in other diseases classified elsewhere, unspecified severity, without behavioral disturbance, psychotic disturbance, mood disturbance, and anxiety; R33.8 Other retention of urine; Z88.0 Allergy status to penicillin; W19.XXXA Unspecified fall, initial encounter
CPT/HCPCS: 36415; 51702; 71045; 72170; 73502; 80053; 81000; 85007; 85025; 85027; 87088; 93005; 94760

== ENCOUNTER 2023-01-15 21:55 | Inpatient (IN) | payer MEDICARE ==
[~2023-01-15] VITALS: Ht 167 cm; Wt 68.3 kg
[~2023-01-15 21:55] MED LIST: ACET325T49 PO; AMLO-250 PO; BETH25TA2 PO; CLN.1T PO; CYAN500T8 PO; DOCU100C37 PO; DONE10TA41 PO; ENOX40DI8 SC; LISI1TAB46 PO; LISI20TA26 PO; LORA-404 PO; NITR-65 PO; ONDA4TAB11 PO; OXC5T PO; POLY17PO54 PO; POTA99TA26 PO
--- NOTE | 2023-01-15 22:29 | ED General ---
General Stated Complaint: SHAKY Source of Information: Caregiver, EMS, Old Records Exam Limitations: Other (Dementia with nonverbal status) History of Present Illness Date Seen by Provider: Jan 15, 2023 Time Seen by Provider: 21:54 Initial Comments 67-year-old female with past medical history of dementia, urinary retention that is Lepe dependent, and relatively recent left hip fracture coming in via EMS from home. Initially the call was "breathing hard and in pain". Per EMS, the patient did not appear like to be in pain, was not yelling out like she normally would be if she was in pain since they did know her previously. EMS was concerned that the patient was covered in bedbugs. They also stated that she was covered in urine, the Lepe catheter looked very dirty, and that family was unsure of the last time it was even changed. Further elements of the history and physical were unable to be obtained as patient is nonverbal. Allergies and Home Medications Allergies Coded Allergies: Penicillins (Verified Allergy, Unknown, 11/22/22) Patient Home Medication List Home Medication List Reviewed: Yes Acetaminophen (Acetaminophen) 325 Mg Tablet, 650 MG PO Q4H PRN for TEMPERATURE Prescribed by: NELA DORMAN on 11/27/22 1248 Amlodipine Besylate (Amlodipine Besylate) 5 Mg Tablet, 5 MG PO DAILY Prescribed by: NELA DORMAN on 11/27/22 1248 Bethanechol Chloride (Bethanechol Chloride) 25 Mg Tablet, 25 MG PO ACHS Prescribed by: NELA DORMAN on 11/27/22 1248 Clonidine HCl (Clonidine HCl) 0.1 Mg Tablet, 0.1 MG PO Q4HR PRN for sbp>160 Prescribed by: NELA DORMAN on 11/27/22 1248 Cyanocobalamin (Vitamin B-12) (Vitamin B-12) 500 Mcg Tablet, 500 MCG PO 1500 Prescribed by: NELA DORMAN on 11/27/22 1248 Docusate Sodium (Docusate Sodium) 100 Mg Capsule, 100 MG PO BID Prescribed by: NELA DORMAN on 11/27/22 1248 Donepezil HCl (Donepezil HCl) 10 Mg Tablet, 10 MG PO 1500 Prescribed by: NELA DORMAN on 11/27/22 1248 Enoxaparin Sodium (Enoxaparin Sodium) 40 Mg/0.4 Ml Syringe, 40 MG SC Q24H Prescribed by: NELA DORMAN on 11/27/22 1248 Lisinopril (Lisinopril) 20 Mg Tablet, 20 MG PO DAILY Prescribed by: NELA DORMAN on 11/27/22 1248 Lorazepam (Ativan) 0.5 Mg Tablet, 0.5 MG PO TID PRN for ANXIETY Prescribed by: NELA DORMAN on 11/27/22 1250 Nitrofurantoin Monohyd/M-Cryst (Macrobid 100 mg Capsule) 100 Mg Capsule, 1 TAB PO BID Prescribed by: NELA DORMAN on 11/27/22 1324 Ondansetron (Ondansetron Odt) 4 Mg Tab.rapdis, 4 MG PO Q6H PRN for NAUSEA/VOMITING-1ST LINE Prescribed by: NELA DORMAN on 11/27/22 1248 Oxycodone Hcl (Oxyir Tablet) 5 Mg Tab, 5 MG PO Q4HR PRN for PAIN-SEE DOSE INSTRUCTIONS Prescribed by: NELA DORMAN on 11/27/22 1250 Polyethylene Glycol 3350 (Polyethylene Glycol 3350) 17 Gram Powd.pack, 17 GM PO BID PRN for CONSTIPATION-1ST LINE Prescribed by: NELA DORMAN on 11/27/22 1248 Potassium Gluconate (Potassium) 595 Mg (99 Mg) Tablet, 99 MG PO 1500 Prescribed by: NELA DORMAN on 11/27/22 1248 Review of Systems Review of Systems Constitutional: see HPI Past Wityjhi-Aecuri-Opidgo Hx Past Medical History Surgery/Hospitalization HX: Alzheimers; Dementia; HTN Surgeries: Yes Orthopedic Physical Exam Vital Signs Capillary Refill : Height, Weight, BMI Height: '" Weight: lbs. oz. kg; 23.00 BMI Method: General Appearance: Chronically ill, Thin, Other (Very foul-smelling of urine and feces) Eyes: Bilateral Eye Normal Inspection HEENT: PERRL/EOMI, Normal ENT Inspection, Pharynx Normal Neck: Full Range of Motion, Normal Inspection, Non Tender, Supple Respiratory: Chest Non Tender, Lungs Clear, Normal Breath Sounds, No Accessory Muscle Use, No Respiratory Distress Cardiovascular: No Edema, Normal Peripheral Pulses, Tachycardia Gastrointestinal: Normal Bowel Sounds, Non Tender, Soft; No Distended, No Guarding Rectal: Other (Stool with maggots crawling around it covering the patient's genitalia) Genital/Rectal: Other (Normal external vaginal exam, Lepe is not in place and patient was just sitting on the tube) Back: No CVA Tenderness, No Vertebral Tenderness Extremity: Normal Capillary Refill, Normal Range of Motion, No Calf Tenderness, No Pedal Edema, Other (Left lower extremity is cooler to the touch compared to the right, she does have a good PT pulse on that side, faint DP pulse, capillary refill roughly 2 seconds, she has a stage II pressure ulcer in her sacrum as well as a stage III where the Lepe catheter was where she was sitting on it on her left ischium, another stage II ulcer on her left lower quadrant with a Lepe catheter was sitting, stage I ulcer to her right oakley) Neurologic/Psychiatric: Alert, Other (Making noises and moving all extremities) Skin: Normal Color Focused Exam Lactate Level 01/15/23 22:30: Lactic Acid Level 4.66*H Lactic Acid Level Laboratory Tests Test 01/15/23 22:30 Lactic Acid Level 4.66 MMOL/L (0.50-2.00) *H Progress/Results/Core Measures Suspected Sepsis SIRS Temperature: Pulse: Respiratory Rate: Laboratory Tests 01/15/23 22:30: White Blood Count 29.8H Blood Pressure / Mean: 01/15/23 22:30: Lactic Acid Level 4.66*H Laboratory Tests 01/15/23 22:30: Creatinine 0.63, INR Comment 1.1, Platelet Count 314, Total Bilirubin 1.0 Results/Orders Lab Results Laboratory Tests Test 01/15/23 22:30 Range/Units White Blood Count 29.8 H 4.3-11.0 10^3/uL Red Blood Count 4.66 3.80-5.11 10^6/uL Hemoglobin 12.1 11.5-16.0 g/dL Hematocrit 36 35-52 % Mean Corpuscular Volume 77 L 80-99 fL Mean Corpuscular Hemoglobin 26 25-34 pg Mean Corpuscular Hemoglobin Concent 34 32-36 g/dL Red Cell Distribution Width 14.2 10.0-14.5 % Platelet Count 314 130-400 10^3/uL Mean Platelet Volume 10.4 9.0-12.2 fL Immature Granulocyte % (Auto) 1 % Neutrophils (%) (Auto) 95 H 42-75 % Lymphocytes (%) (Auto) 4 L 12-44 % Monocytes (%) (Auto) 1 0-12 % Eosinophils (%) (Auto) 0 0-10 % Basophils (%) (Auto) 0 0-10 % Neutrophils # (Auto) 28.2 H 1.8-7.8 10^3/uL Lymphocytes # (Auto) 1.0 1.0-4.0 10^3/uL Monocytes # (Auto) 0.2 0.0-1.0 10^3/uL Eosinophils # (Auto) 0.0 0.0-0.3 10^3/uL Basophils # (Auto) 0.1 0.0-0.1 10^3/uL Immature Granulocyte # (Auto) 0.3 H 0.0-0.1 10^3/uL Neutrophils % (Manual) 70 % Lymphocytes % (Manual) 2 % Metamyelocytes % 1 % Band Neutrophils 26 % Reactive Lymphocytes 1 % Toxic Granulation 4+ Platelet Estimate NORMAL Poikilocytosis SLIGHT Microcytosis MODERATE Elliptocytes SLIGHT Blood Morphology Comment ABNORMAL Erythrocyte Sedimentation Rate 68 H 0-30 MM/HR Prothrombin Time 14.5 12.2-14.7 SEC INR Comment 1.1 0.8-1.4 Activated Partial Thromboplast Time 28 24-35 SEC Urine Color YELLOW Urine Clarity TURBID Urine pH 8.5 5-9 Urine Specific Buhl 1.015 L 1.016-1.022 Urine Protein 2+ H NEGATIVE Urine Glucose (UA) NEGATIVE NEGATIVE Urine Ketones 1+ H NEGATIVE Urine Nitrite POSITIVE H NEGATIVE Urine Bilirubin NEGATIVE NEGATIVE Urine Urobilinogen 1.0 < = 1.0 MG/DL Urine Leukocyte Esterase 3+ H NEGATIVE Urine RBC (Auto) 2+ H NEGATIVE Urine RBC NONE /HPF Urine WBC 25-50 H /HPF Urine Squamous Epithelial Cells NONE /HPF Urine Crystals PRESENT H /LPF Urine Triple Phosphate Crystals FEW H /LPF Urine Bacteria LARGE H /HPF Urine Casts NONE /LPF Urine Mucus NEGATIVE /LPF Urine Culture Indicated YES Sodium Level 136 135-145 MMOL/L Potassium Level 3.0 L 3.6-5.0 MMOL/L Chloride Level 95 L 98-107 MMOL/L Carbon Dioxide Level 19 L 21-32 MMOL/L Anion Gap 22 H 5-14 MMOL/L Blood Urea Nitrogen 23 H 7-18 MG/DL Creatinine 0.63 0.60-1.30 MG/DL Estimat Glomerular Filtration Rate 97 BUN/Creatinine Ratio 37 Glucose Level 126 H 70-105 MG/DL Lactic Acid Level 4.66 *H 0.50-2.00 MMOL/L Calcium Level 8.4 L 8.5-10.1 MG/DL Corrected Calcium 9.4 8.5-10.1 MG/DL Magnesium Level 1.9 1.6-2.4 MG/DL Total Bilirubin 1.0 0.1-1.0 MG/DL Aspartate Amino Transf (AST/SGOT) 28 5-34 U/L Alanine Aminotransferase (ALT/SGPT) 18 0-55 U/L Alkaline Phosphatase 152 H 40-136 U/L Troponin I 0.32 *H <0.30 NG/ML C-Reactive Protein 30.97 H <0.50 MG/DL Pro-B-Type Natriuretic Peptide 1194.0 H <125.0 PG/ML Total Protein 6.3 L 6.4-8.2 GM/DL Albumin 2.8 L 3.2-4.5 GM/DL Lipase 67 8-78 U/L My Orders Orders - MINNA LAWSON MD Cbc With Automated Diff (01/15/23:08) Comprehensive Metabolic Panel (01/15/23 22:08) Lipase (01/15/23 22:08) Magnesium (01/15/23:08) Protime With Inr (01/15/23:08) Partial Thromboplastin Time (01/15/23 22:08) Ua Culture If Indicated (01/15/23 22:08) Probnp Fs (01/15/23 22:08) Troponin I Fs (01/15/23:08) Chest 1 View Ap/Pa Only (01/15/23:08) Pelvis (Ap) (01/15/23 22:08) Ed Iv/Invasive Line Start (01/15/23 22:08) Ekg Tracing (01/15/23:08) Catheter(Urinary) Insert & Ass 15 (01/15/23 22:08) Ns Iv 1000 Ml (Sodium Chloride 0.9%) (01/15/23 22:30) Lactic Acid Analyzer (01/15/23 22:21) Erythrocyte Sedimentation Rate (01/15/23 22:21) Crp Fs (3/15/23 22:21) Cefepime Injection (Maxipime Injection) (01/15/23 22:30) Manual Differential (01/15/23 22:30) Urine Culture (01/15/23 22:30) Aspirin Tablet (Aspirin Tablet) (01/15/23 23:20) Medications Given in ED Current Medications Medications Dose Ordered Sig/Dandre Route Start Time Stop Time Status Last Admin Dose Admin Cefepime HCl 1000 mg/Sodium Chloride 50 ml @ 100 mls/hr ONCE ONCE IV 01/15/23 22:30 01/15/23 22:59 DC 01/15/23 23:00 100 MLS/HR Vital Signs/I&O Capillary Refill : Progress Note : Progress Note 67-year-old female with above history coming in confused. The patient was tachycardic to the 130s on presentation. Blood pressure trended down to the 90s over 40s. She is afebrile. Physical exam with her being quite filthy, stench of urine and feces, and feces with actual maggots crawling in it. Multiple wounds at multiple stages all over her body, specifically 1 where she was sitting on her Lepe catheter. Lepe catheter actually not in place and has been pulled out. We replaced it draining jose purulent urine. Urinalysis obviously concerning for infection. Her white blood cell count is 30,000 with a left shift, lactic acid elevated around 4.6, normal creatinine, elevated troponin at 0.3. The patient was given 2 L of IV fluids as well as IV cefepime. Given rectal aspirin. EKG with no acute ischemic changes on my interpretation. Chest x-ray and 1 view pelvis ordered and interpreted by me showing no new fractures, no obvious pneumonia. I contacted Dr. Malone, cardiology, he is agreeable that this is likely a type II NSTEMI and does not require immediate intervention at this time. I then contacted Dr. Foster, who admit the patient to the intensive care unit for further evaluation and management. I then contacted the ICU physician for signout. ECG Initial ECG Impression Date: Jan 15, 2023 Initial ECG Impression Time: 23:00 Initial ECG Rate: 133 Initial ECG Rhythm: S.Tach Comment Narrow QRS, normal axis, no significant ST changes or T wave abnormalities Diagnostic Imaging Diagonstic Imaging: Xray (chest and pelvis) Departure Impression Primary Impression: Severe sepsis Additional Impressions: Cystitis Lactic acidosis Pressure ulcer Qualified Codes: L89.152 - Pressure ulcer of sacral region, stage 2 Disposition: 30 STILL A PATIENT Condition: Stable Admissions Decision to Admit Reason: Admit from ER (General) Decision to Admit/Date: Jan 15, 2023 Time/Decision to Admit Time: 23:20 Departure-Patient Inst. Referrals: DARIAN HODGES APRN (PCP) Primary Care Physician [facility] (Family) Primary Care Physician MINNA LAWSON MD Jan 15, 2023 22:28
[2023-01-15] MEDS ORDERED: CEFEPIME INJECTION 1,000 MG in NS (IVPB) 50 ML IV ONE (22:30)
[2023-01-15 22:47] LABS: BASOPHILS # (AUTO) 0.1 10^3/uL (0.0-0.1); BASOPHILS % (AUTO) 0 % (0-10); EOSINOPHILS % (AUTO) 0 % (0-10); HEMATOCRIT 36 % (35-52); HEMOGLOBIN 12.1 g/dL (11.5-16.0); LYMPHOCYTES % (AUTO) 4 % (12-44); MEAN CORPUSCULAR HEMOGLOBIN 26 pg (25-34); MEAN CORPUSCULAR HGB CONC 34 g/dL (32-36); MEAN CORPUSCULAR VOLUME 77 fL (80-99); MEAN PLATELET VOLUME 10.4 fL (9.0-12.2); MONOCYTES # (AUTO) 0.2 10^3/uL (0.0-1.0); MONOCYTES % (AUTO) 1 % (0-12); NEUTROPHILS # (AUTO) 28.2 10^3/uL (1.8-7.8); NEUTROPHILS % (AUTO) 95 % (42-75); PLATELET COUNT 314 10^3/uL (130-400); WHITE BLOOD COUNT 29.8 10^3/uL (4.3-11.0)
[2023-01-15 22:49] LABS: BILIRUBIN,URINE NEGATIVE (NEGATIVE); CLARITY,URINE TURBID; COLOR,URINE YELLOW; GLUCOSE, URINE (UA) NEGATIVE (NEGATIVE); KETONES,URINE 1+ (NEGATIVE); LEUKOCYTE ESTERASE ,URINE 3+ (NEGATIVE); NITRITE,URINE POSITIVE (NEGATIVE); PH,URINE 8.5 (5-9); PROTEIN,URINE 2+ (NEGATIVE)
[2023-01-15 23:01] LABS: BACTERIA,URINE LARGE /HPF; TRIPLE PHOSPHATE CRYSTAL,UR FEW /LPF; WBC,URINE 25-50 /HPF
[2023-01-15] MEDS: NS IV 1000 ML 1,000 ML IV SCH (23:05)
[2023-01-15 23:17] LABS: CALCIUM 8.4 MG/DL (8.5-10.1); CREATININE SERUM 0.63 MG/DL (0.60-1.30); MAGNESIUM 1.9 MG/DL (1.6-2.4)
[2023-01-15 23:19] LABS: ALBUMIN 2.8 GM/DL (3.2-4.5); TOTAL PROTEIN 6.3 GM/DL (6.4-8.2)
[2023-01-15] MEDS ORDERED: ASPIRIN 325 MG (5 GR) TABLET ONE (23:20)
[2023-01-15 23:23] LABS: INR 1.1 (0.8-1.4); PROTHROMBIN TIME PATIENT 14.5 SEC (12.2-14.7)
[2023-01-15 23:32] LABS: BAND NEUTROPHILS 26 %; LYMPHOCYTES % (MANUAL) 2 %; METAMYELOCYTES % 1 %; MICROCYTOSIS MODERATE; NEUTROPHILS % (MANUAL) 70 %; PLATELET ESTIMATE NORMAL; POIKILOCYTOSIS SLIGHT; RBC MORPH ABNORMAL; REACTIVE LYMPHOCYTES 1 %
[2023-01-15 23:33] LABS: ELLIPT/OVALOCYTES SLIGHT; ERYTHROCYTE SEDIMENTATION RATE 68 MM/HR (0-30); TOXIC GRANULATION/VACUOLAZATIO 4+
[2023-01-16] VITALS (9 sets, daily range): BP systolic 103–124; BP diastolic 49–87
[2023-01-16] MEDS: NS IV 1000 ML 1,000 ML IV SCH ×3 (00:04→09:11)
[2023-01-16] MEDS ORDERED: NS IV 1000 ML 1,000 ML ONE (01:27)
[2023-01-16] MEDS ORDERED: EPINEPHrine 1 MG INJECTION 4 MG in NS (IVPB) 248 ML IV SCH (01:30)
[2023-01-16] MEDS ORDERED: ONDANSETRON 4 MG/2 ML (SDV) Z0FRAN IV PRN ×2 (01:30→22:00)
[2023-01-16] MEDS: VASOPRESSIN INJECTION 20 UNIT in NS (IVPB) 100 ML IV SCH ×2 (01:39→12:21)
[2023-01-16] MEDS: NOREPINEPHRINE 8 MG/250 ML 250 ML IV SCH ×2 (01:39→22:30)
[2023-01-16] MEDS ORDERED: RT-ALBUTEROL SULF 2.5 MG/3 ML PRE-MIX VIAL INH PRN (02:15)
[2023-01-16 02:25] LABS: BASOPHILS # (AUTO) 0.1 10^3/uL (0.0-0.1); BASOPHILS % (AUTO) 0 % (0-10); EOSINOPHILS # (AUTO) 0.1 10^3/uL (0.0-0.3); EOSINOPHILS % (AUTO) 0 % (0-10); HEMATOCRIT 35 % (35-52); HEMOGLOBIN 11.4 g/dL (11.5-16.0); LYMPHOCYTES # (AUTO) 0.5 10^3/uL (1.0-4.0); LYMPHOCYTES % (AUTO) 1 % (12-44); MEAN CORPUSCULAR HEMOGLOBIN 26 pg (25-34); MEAN CORPUSCULAR HGB CONC 33 g/dL (32-36); MEAN CORPUSCULAR VOLUME 80 fL (80-99); MEAN PLATELET VOLUME 10.8 fL (9.0-12.2); MONOCYTES # (AUTO) 0.8 10^3/uL (0.0-1.0); MONOCYTES % (AUTO) 2 % (0-12); NEUTROPHILS # (AUTO) 37.6 10^3/uL (1.8-7.8); NEUTROPHILS % (AUTO) 93 % (42-75); PLATELET COUNT 233 10^3/uL (130-400)
[2023-01-16 02:27] LABS: WHITE BLOOD COUNT 40.4 10^3/uL (4.3-11.0)
[2023-01-16 02:42] LABS: ALBUMIN 2.5 GM/DL (3.2-4.5); BILIRUBIN,TOTAL 1.2 MG/DL (0.1-1.0); CALCIUM 7.8 MG/DL (8.5-10.1); CREATININE SERUM 0.72 MG/DL (0.60-1.30); MAGNESIUM 1.7 MG/DL (1.6-2.4); PHOSPHORUS 2.3 MG/DL (2.3-4.7); TOTAL PROTEIN 5.4 GM/DL (6.4-8.2)
[2023-01-16 02:44] LABS: POTASSIUM 2.4 MMOL/L (3.6-5.0)
[2023-01-16] MEDS ORDERED: NS IV 500 ML 500 ML IV PRN (02:45)
[2023-01-16] MEDS ORDERED: POTASSIUM CL 10 MEQ/50 ML IV ONE (02:53)
[2023-01-16 02:54] LABS: ANISOCYTOSIS SLIGHT; BAND NEUTROPHILS 9 %; BASOPHILS % (MANUAL) 0 %; EOSINOPHILS % (MANUAL) 0 %; LYMPHOCYTES % (MANUAL) 1 %; MONOCYTES % (MANUAL) 3 %; NEUTROPHILS % (MANUAL) 87 %; TOXIC GRANULATION/VACUOLAZATIO 1+
--- NOTE | 2023-01-16 02:54 | Tele-ICU Progress Note ---
Progress Note 67F with dementia, HTN, urinary retention with chronic indwelling uriarte, recent hip fx, living at home brought in for "breathing hard and in pain". On EMS arrival patient was covered in bed bugs and urine. The uriarte catheter was dirty appearing and was pulled out with a stage 3 where she was sitting on the catheter. Patient was nonverbal. In ED she was tachy in the 130s, BP 90/40, afebrile. She was covered in urine and feces with maggots crawling on the fecal matter. Noted to have multiple wounds at multiple stages over her body. A new uriarte was placed with drainage of frankly purulent urine. Initiated on cefepime, given 2L IVF with BP 105/59, HR 114. - sepsis: secondary to urinary source. Urine culture pending. Will add blood cultures. Trend lactic. Order blood cultures. Sepsis protocol in place. - wounds: wound care consult - disposition: will need home living situation assessed. Family is unable to care for her. Will likely need placement prior to discharge. Patient assessed via real time audiovisual monitoring system. CCT 15 min Focused Exam Lactate Level 01/15/23 22:30: Lactic Acid Level 4.66*H 01/16/23 02:16: Lactic Acid Level 2.74*H Height, Weight, BMI Height: '" Weight: lbs. oz. kg; 22.33 BMI Method: Lactic Acid Level Laboratory Tests Test 01/16/23 02:16 Lactic Acid Level 2.74 MMOL/L (0.50-2.00) *H STU EDMONDS MD Jan 16, 2023 02:54
[2023-01-16] MEDS: POTASSIUM CL 10MEQ/50ML IVPB 50 ML IV SCH ×13 (03:13→19:36)
[2023-01-16] MEDS ORDERED: MAGNESIUM 1 GM/100 ML IVPB 400 ML IV ONE (04:02)
[2023-01-16] MEDS: MAGNESIUM 1 GM/100 ML IVPB 100 ML IV SCH ×4 (04:06→06:12)
[2023-01-16] MEDS: CEFEPIME 1,000 MG/NS 50 ML IVPB IV SCH ×8 (04:07→21:55)
[2023-01-16] MEDS: KCL 20 MEQ TAB (K-DUR) PO SCH (05:19)
--- NOTE | 2023-01-16 06:20 | Diagnostic Imaging Report ---
INDICATION: Preop screening. Comparison is made with prior exam of 11/22/2022. FINDINGS: The heart size, mediastinal configuration, and pulmonary vascularity are within normal limits. There is no pleural effusion, pneumothorax, or pneumonia. The osseous structures are unremarkable. IMPRESSION: No acute cardiopulmonary abnormality. Dictated by: Dictated on workstation # [id number]
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
[2023-01-16] MEDS ORDERED: FLU QUAD HIGH DOSE 240 MCG/0.7 ML 2022-23 (FLUZONE) IM ONE (07:00)
--- NOTE | 2023-01-16 09:08 | Diagnostic Imaging Report ---
EXAMINATION: Pelvis, 1 or 2 views. HISTORY: Altered mental status. COMPARISON: 11/22/2022. FINDINGS: There is an unchanged left hip hemiarthroplasty. Right hip is normal. No acute fracture is seen. IMPRESSION: Unchanged left hip hemiarthroplasty. Dictated by: Dictated on workstation # [id number]
[2023-01-16] MEDS ORDERED: CATHETER FLUSH 10 ML SYR IVP PRN (12:45)
[2023-01-16] MEDS ORDERED: CYAN500T8 PO (13:00)
[2023-01-16] MEDS ORDERED: DONE10TA41 PO (13:00)
[2023-01-16] MEDS ORDERED: CHOL200052 PO (13:00)
[2023-01-16] MEDS ORDERED: LISI1TAB46 PO (13:00)
--- NOTE | 2023-01-16 14:39 | Diagnostic Imaging Report ---
EXAMINATION: Chest radiograph, portable AP view. DATE: 01/16/2023 1:55 PM INDICATION: 67-year-old female, evaluation of PICC line position. COMPARISON: January 15, 2023. FINDINGS: Heart size and mediastinal contours are unchanged. There is no identified pneumothorax. There is no large pleural effusion. There are right perihilar opacities. There is elevation of the right hemidiaphragm. The right-sided PIC line overlies the mid SVC and is new. IMPRESSION: 1. New right-sided PIC line overlies the mid SVC. 2. Nonspecific right perihilar opacification which may reflect atelectasis and/or infiltrate. Dictated by: Dictated on workstation # [id number]
[2023-01-16 15:22] LABS: POTASSIUM 3.5 MMOL/L (3.6-5.0)
[2023-01-16 15:24] LABS: CALCIUM 7.3 MG/DL (8.5-10.1)
[2023-01-16 15:28] LABS: CREATININE SERUM 0.57 MG/DL (0.60-1.30)
[2023-01-16] MEDS: COLLAGENASE 30 GM (SANTYL) TUBE TP SCH (21:00)
[2023-01-16] MEDS: MICONAZOLE 2% POWDER (DESENEX AF) 90 GM TOP SCH (21:00)
[2023-01-16] MEDS ORDERED: diphenhydrAMINE 25 MG TAB (BENADRYL) PO PRN (22:00)
[2023-01-16] MEDS ORDERED: diphenhydrAMINE 50 MG/ML INJ (BENADRYL) IVP PRN (22:00)
[2023-01-16] MEDS ORDERED: BISACODYL 10 MG SUPP (DULCOLAX) PR PRN (22:00)
[2023-01-16] MEDS ORDERED: MELATONIN 3 MG TABLET PO PRN (22:00)
[2023-01-16] MEDS ORDERED: ANTACID SUSP 30 ML UDC (MYLANTA) PO PRN (22:00)
[2023-01-16] MEDS ORDERED: LACTULOSE SYRUP 10GM/15ML (ENULOSE) 30ML UDC PO PRN (22:00)
[2023-01-16] MEDS ORDERED: HYDROmorphone 2 MG/ML VIAL (DILAUDID) IV PRN (22:00)
[2023-01-16] MEDS ORDERED: ACETAMINOPHEN 325 MG TABLET PO PRN (22:00)
[2023-01-16] MEDS ORDERED: CALCIUM CARBONATE 500 MG (TUMS) TAB.CHEW PO PRN (22:00)
[2023-01-16] MEDS ORDERED: MILK OF MAGNESIA 400 MG/5 ML 30 ML UDC PO PRN (22:00)
[2023-01-16] MEDS ORDERED: ONDANSETRON 4 MG (ZOFRAN) ORAL DISSOLVE TAB PO PRN (22:00)
[2023-01-16] MEDS ORDERED: polyethylene glycoL POWDER 17 GM (MIRALAX) PACK PO PRN (22:00)
[2023-01-17] MEDS: VASOPRESSIN INJECTION 20 UNIT in NS (IVPB) 100 ML IV SCH ×2 (00:29→11:10)
[2023-01-17] MEDS: CEFEPIME 1,000 MG/NS 50 ML IVPB IV SCH ×8 (04:35→21:54)
[2023-01-17 05:06] LABS: BASOPHILS # (AUTO) 0.1 10^3/uL (0.0-0.1); BASOPHILS % (AUTO) 0 % (0-10); EOSINOPHILS % (AUTO) 0 % (0-10); HEMATOCRIT 33 % (35-52); HEMOGLOBIN 10.5 g/dL (11.5-16.0); LYMPHOCYTES # (AUTO) 0.8 10^3/uL (1.0-4.0); LYMPHOCYTES % (AUTO) 3 % (12-44); MEAN CORPUSCULAR HEMOGLOBIN 26 pg (25-34); MEAN CORPUSCULAR HGB CONC 32 g/dL (32-36); MEAN CORPUSCULAR VOLUME 80 fL (80-99); MEAN PLATELET VOLUME 11.7 fL (9.0-12.2); MONOCYTES # (AUTO) 1.1 10^3/uL (0.0-1.0); MONOCYTES % (AUTO) 3 % (0-12); NEUTROPHILS # (AUTO) 30.5 10^3/uL (1.8-7.8); NEUTROPHILS % (AUTO) 93 % (42-75); PLATELET COUNT 249 10^3/uL (130-400)
[2023-01-17 05:36] LABS: ALBUMIN 2.3 GM/DL (3.2-4.5); BILIRUBIN,TOTAL 0.5 MG/DL (0.1-1.0); CALCIUM 7.9 MG/DL (8.5-10.1); CREATININE SERUM 0.6 MG/DL (0.60-1.30); MAGNESIUM 2.3 MG/DL (1.6-2.4); PHOSPHORUS 1.9 MG/DL (2.3-4.7); POTASSIUM 3.8 MMOL/L (3.6-5.0); TOTAL PROTEIN 5.2 GM/DL (6.4-8.2)
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
[2023-01-17] MEDS: MAGNESIUM 1 GM/100 ML IVPB 100 ML IV SCH (08:14)
[2023-01-17] MEDS: POTASSIUM CL 10MEQ/50ML IVPB 50 ML IV SCH ×3 (08:15→10:21)
[2023-01-17] MEDS: DOCUSATE SODIUM 100 MG (COLACE) CAP PO SCH ×2 (08:15→21:32)
[2023-01-17] MEDS: SENNOSIDES 8.6 MG (SENOKOT) TAB PO SCH ×2 (08:15→21:32)
[2023-01-17] MEDS: KCL 20 MEQ TAB (K-DUR) PO SCH (08:15)
--- NOTE | 2023-01-17 08:26 | Physical Therapy Evaluation ---
PT Evaluation-General Medical Diagnosis Admission Date Jan 16, 2023 at 01:08 Medical Diagnosis: severe sepsis Onset Date: Jan 16, 2023 Therapy Diagnosis Therapy Diagnosis: generalized weakness/debilitly Precautions Precautions/Isolations: Contact Isolation, Fall Prevention, Standard Precautions Referral Physician: Pool Reason for Referral: Evaluation/Treatment Medical History Pertinent Medical History: Dementia Current History EMS from home due to being shaky Reviewed History: Yes Social History unable to determine due to patient has dementia and no family present Prior Prior Level of Function SCALE: Activities may be completed with or without assistive devices. 1-Cadyuoixjs-itkmmwr completes the activity by him/herself with no assistance from a helper. 5-Set-up or Clean-up Assistance-helper sets up or cleans up; patient completes activity. [place] assists only prior to or following the activity. 4-Supervision or Touching Assistance-helper provides verbal cues and/or touching/steadying and/or contact guard assistance as patient completes activity. Assistance may be provided throughout the activity or intermittently. 3-Partial/Moderate Assistance-helper does LESS THAN HALF the effort. E[place]ice lifts, holds or supports trunk or limbs, but provides less than half the effort. 2-Substantial/Maximal Assistance-helper does MORE THAN HALF the effort. [place] lifts or holds trunk or limbs and provides more than half the effort. 2-Jtrvmvwfs-bnmyar does ALL the effort. Patient does none of the effort to complete the activity. Or, the assistance of 2 or more helpers is required for the patient to complete the activity. If activity was not attempted, code reason: 7-Patient Refused. 9-Not Applicable-not attempted and the patient did not perform the activity before the current illness, exacerbation or injury. 10-Not Attempted due to Environmental Limitations-(lack of equipment, weather restraints, etc.). 88-Not Attempted due to Medical Conditions or Safety Concerns. unable to determine due to patient has dementia and no family present PT Evaluation-Current Subjective Patient states, "I love you." Objective Patient Orientation: Confused Attachments: Lepe Catheter ROM/Strength ROM Lower Extremities bilateral LE WFL Strength Lower Extremities 3-/5 grossly bilateral LE (no formal testing) Integumentary/Posture Integumentary refer to nursing notes Bowel Incontinence: Yes Bladder Incontinence: Lepe Cath Neuromuscular (Tone, Coordination, Reflexes) severely diminished Sensory Vision: Functional Hearing: Functional Transfers Roll Left to Right (QC): 1 (x 2) Sit to Lying (QC): 1 (x 2) Lying to Sitting/Side of Bed(Q: 1 (x 2) unable to maintain sitting EOB, very retropulsive Gait Does the Patient Walk?: No and Walking Goal NOT indicated Balance Sitting Static: Poor Sitting Dynamic: Poor Assessment/Needs Patient will be seen by skilled PT to address functional strength and mobility to improve current LOF. Patient is currently dependent with all mobility and not safe for OOB activity at this time. Rehab Potential: Poor PT Resolution Manager Goals Care Home Goals PT Care Home Goals Time Frame: Feb 01, 2023 Roll Left & Right (QC): 2 Sit to Lying (QC): 2 Lying-Sitting on Side/Bed(QC): 2 Sit to Stand (QC): 2 Chair/Hrj-lj-Ikous Xfer(QC): 2 PT Plan Problem List Problem List: Activity Tolerance, Functional Strength, Safety, Balance, Gait, Transfer, Bed Mobility Treatment/Plan Treatment Plan: Continue Plan of Care Treatment Plan: Bed Mobility, Education, Functional Activity Pa, Functional Strength, Gait, Safety, Therapeutic Exercise, Transfers Treatment Duration: Feb 01, 2023 Frequency: 5 times per week Estimated Hrs Per Day: .25 hour per day Time Time In: 720 Time Out: 738 DATE: Jan 17, 2023 Total Billed Treatment Time: 18 Total Billed Treatment 1 visit [facility] 18 min CALLY LOBO PT Jan 17, 2023 08:26
[2023-01-17] MEDS: ENOXAPARIN 40 MG/0.4 ML (LOVENOX) SYR SC SCH (08:54)
[2023-01-17] MEDS: COLLAGENASE 30 GM (SANTYL) TUBE TP SCH ×2 (10:20→20:40)
[2023-01-17] MEDS: HYPOCHLOROUS ACID/NaCl (VASHE) 250 ML IR PRN ×2 (10:20→20:40)
[2023-01-17] MEDS: MICONAZOLE 2% POWDER (DESENEX AF) 90 GM TOP SCH ×3 (10:22→21:32)
[2023-01-17] MEDS: D5 NS 1000 ML IV SOLUTION 1,000 ML IV SCH (13:57)
--- NOTE | 2023-01-17 15:37 | Occupational Therapy Eval ---
OT Evaluation-General/PLF Medical Diagnosis Admission Date Jan 16, 2023 at 01:08 Medical Diagnosis: severe sepsis Onset Date: Jan 16, 2023 Therapy Diagnosis Therapy Diagnosis: weakness, confusion Precautions Precautions/Isolations: Contact Isolation, Fall Prevention, Standard Precautions Safety Interventions: Bed Exit Alarm Weight Bear Status Weight Bearing Restriction: Weight Bearing/Tolerated Referral Physician: Pool Kang Reason: Evaluation/Treatment Medical History Pertinent Medical History: Dementia Social History Home: Lived with family prior to November 2022, sustained fall w/ hip fracture and pest infestation. [facility], Patient is currently unable to provided answers to PLOF, no family at bedside. ADL-Prior Level of Function SCALE: Activities may be completed with or without assistive devices. 0-Gajdhcilmc-fluconx completes the activity by him/herself with no assistance from a helper. 5-Set-up or Clean-up Assistance-helper sets up or cleans up; patient completes activity. [place] assists only prior to or following the activity. 4-Supervision or Touching Assistance-helper provides verbal cues and/or touching/steadying and/or contact guard assistance as patient completes activity. Assistance may be provided throughout the activity or intermittently. 3-Partial/Moderate Assistance-helper does LESS THAN HALF the effort. [place] lifts, holds or supports trunk or limbs, but provides less than half the effort. 2-Substantial/Maximal Assistance-helper does MORE THAN HALF the effort. [place] lifts or holds trunk or limbs and provides more than half the effort. 5-Xlnaoqryb-rvewgz does ALL the effort. Patient does none of the effort to complete the activity. Or, the assistance of 2 or more helpers is required for the patient to complete the activity. If activity was not attempted, code reason: 7-Patient Refused. 9-Not Applicable-not attempted and the patient did not perform the activity before the current illness, exacerbation or injury. 10-Not Attempted due to Environmental Limitations-(lack of equipment, weather restraints, etc.). 88-Not Attempted due to Medical Conditions or Safety Concerns. Self Care: Unknown Functional Cognition: Dependent Drive Self: No OT Current Status Subjective Patient only responds "I don't know" Current Upper Extremity ROM Does not follow commands, observed patient ability to scratch forehead and feet w BUEs ADL-Treatment Shower/Bathe Self (QC): 88 (spopnge bath recommended) Upper Body Dressing (QC): 2 Lower Body Dressing (QC): 1 On/Off Footwear (QC): 1 Toileting Hygiene (QC): 1 Unable to fully assess d/t extreme confusion Education OT Patient Education: Progress toward Goal/Update tx plan, Purpose of tx/functional activities, Reviewed precautions, Safety issues Teaching Recipient: Patient Teaching Methods: Demonstration Response to Teaching: Unable to Return Demonstration, Unable to Comprehend, Reinforcement Needed OT [facility] Goals Coupon Manifest Clerk Goals Eating (QC): 4 Oral Hygiene (QC): 4 Toileting Hygiene (QC): 3 Shower/Bathe Self (QC): 3 Upper Body Dressing (QC): 4 Lower Body Dressing (QC): 3 On/Off Footwear (QC): 4 1=Demonstrate adherence to instructed precautions during ADL tasks. 2=Patient will verbalize/demonstrate understanding of assistive devices/modifications for ADL. 3=Patient will improve strength/tolerance for activity to enable patient to perform ADL's. OT Education/Plan Problem List/Assessment Assessment: Decreased Safety Aware, Decreased UE Strength, Dependent Transfers, Impaired Cognition, Impaired Coordination, Impaired Funct Balance, Impaired Self-Care Skills Discharge Recommendations Plan/Recommendations: Continue POC Treatment Plan/Plan of Care Patient would benefit from OT for education, treatment and training to promote independence in ADL's, mobility, safety and/or upper extremity function for ADL's. Plan of Care: Caregiver Training, Functional Mobility, Group Exercise/Act as Ind, UE Funct Exercise/Act Treatment Duration: Jan 25, 2023 Frequency: 3 times per week (3-5 times per week) Estimated Hrs Per Day: .25 hour per day Rehab Potential: Poor Time Start Time: 15:20 Stop Time: 15:41 DATE: Jan 17, 2023 Total Time Billed (hr/min): 21 Billed Treatment Time EVM 21 min JEN CAUSEY OT Jan 17, 2023 15:37
[2023-01-17 19:37] VITALS: BP 135/85
[2023-01-17 23:55] VITALS: BP 128/79
[2023-01-18] VITALS (9 sets, daily range): BP systolic 95–132; BP diastolic 65–94
[2023-01-18] MEDS: CEFEPIME 1,000 MG/NS 50 ML IVPB IV SCH ×8 (03:24→22:22)
[2023-01-18] MEDS: D5 NS 1000 ML IV SOLUTION 1,000 ML IV SCH ×2 (05:11→14:55)
[2023-01-18] MEDS ORDERED: NON-FORMULARY MEDICATION 1 EA EA (Cyanocobalamin (Vitamin B-12) (Vitamin B-12) 500 MCG) PO SCH (09:00)
[2023-01-18] MEDS ORDERED: NON-FORMULARY MEDICATION 1 EA EA (Cholecalciferol (Vitamin D3) (Vitamin D3) 50 MCG) PO SCH (09:00)
[2023-01-18] MEDS: ENOXAPARIN 40 MG/0.4 ML (LOVENOX) SYR SC SCH (09:15)
[2023-01-18] MEDS: CYANOCOBALAMIN 1,000 MCG (VITAMIN B-12) TABLET PO SCH (09:16)
[2023-01-18] MEDS: VITAMIN D3 25 MCG (1,000 UNITS) TABLET PO SCH (09:16)
[2023-01-18] MEDS: DONEPEZIL 10 MG (ARICEPT) TAB PO SCH (09:19)
[2023-01-18] MEDS: COLLAGENASE 30 GM (SANTYL) TUBE TP SCH ×2 (09:23→21:24)
[2023-01-18] MEDS: HYPOCHLOROUS ACID/NaCl (VASHE) 250 ML IR PRN ×2 (09:23→21:24)
[2023-01-18] MEDS: DOCUSATE SODIUM 100 MG (COLACE) CAP PO SCH ×2 (09:24→21:23)
[2023-01-18] MEDS: SENNOSIDES 8.6 MG (SENOKOT) TAB PO SCH ×2 (09:24→21:23)
[2023-01-18 10:07] LABS: ALBUMIN 2.3 GM/DL (3.2-4.5); CHLORIDE 117 MMOL/L (98-107); POTASSIUM 4.1 MMOL/L (3.6-5.0); SODIUM 143 MMOL/L (135-145)
[2023-01-18 10:09] LABS: CALCIUM 7.5 MG/DL (8.5-10.1)
[2023-01-18 10:10] LABS: GLUCOSE 159 MG/DL (70-105); TOTAL PROTEIN 5.6 GM/DL (6.4-8.2)
[2023-01-18 10:11] LABS: CARBON DIOXIDE 12 MMOL/L (21-32)
[2023-01-18 10:12] LABS: BILIRUBIN,TOTAL 0.5 MG/DL (0.1-1.0)
[2023-01-18 10:13] LABS: CREATININE SERUM 0.61 MG/DL (0.60-1.30); GFR ESTIMATED 98
[2023-01-18 10:14] LABS: BUN/CREATININE RATIO 18
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
[2023-01-18] MEDS: MICONAZOLE 2% POWDER (DESENEX AF) 90 GM TOP SCH ×2 (12:05→21:23)
[2023-01-18] MEDS ORDERED: NS IV 1000 ML 1,000 ML ONE (16:15)
[2023-01-18] MEDS ORDERED: NS IV 1000 ML 1,000 ML IV ONE (16:15)
[2023-01-18] MEDS ORDERED: NS IV 1000 ML 1,000 ML IV SCH (16:30)
[2023-01-18] MEDS ORDERED: meTOproloL SUCCINATE 50 MG (TOPROL XL) TAB PO ONE (17:41)
[2023-01-18] MEDS: meTOproloL SUCCINATE 50 MG (TOPROL XL) TAB PO SCH (17:43)
[2023-01-18] MEDS ORDERED: FUROSEMIDE 40 MG/4 ML INJ (LASIX) IVP ONE (21:00)
[2023-01-18 21:43] LABS: BASOPHILS # (AUTO) 0.1 10^3/uL (0.0-0.1); BASOPHILS % (AUTO) 0 % (0-10); EOSINOPHILS % (AUTO) 0 % (0-10); HEMATOCRIT 36 % (35-52); HEMOGLOBIN 11.9 g/dL (11.5-16.0); LYMPHOCYTES # (AUTO) 0.8 10^3/uL (1.0-4.0); LYMPHOCYTES % (AUTO) 3 % (12-44); MEAN CORPUSCULAR HEMOGLOBIN 26 pg (25-34); MEAN CORPUSCULAR HGB CONC 33 g/dL (32-36); MEAN CORPUSCULAR VOLUME 80 fL (80-99); MEAN PLATELET VOLUME 10.9 fL (9.0-12.2); MONOCYTES # (AUTO) 0.6 10^3/uL (0.0-1.0); MONOCYTES % (AUTO) 2 % (0-12); NEUTROPHILS # (AUTO) 27.9 10^3/uL (1.8-7.8); NEUTROPHILS % (AUTO) 94 % (42-75); PLATELET COUNT 365 10^3/uL (130-400); WHITE BLOOD COUNT 29.8 10^3/uL (4.3-11.0)
[2023-01-18 21:58] LABS: CALCIUM 7.4 MG/DL (8.5-10.1); CREATININE SERUM 0.64 MG/DL (0.60-1.30); POTASSIUM 3.2 MMOL/L (3.6-5.0)
[2023-01-19 03:12] VITALS: BP 105/75
[2023-01-19] MEDS: CEFEPIME 1,000 MG/NS 50 ML IVPB IV SCH ×8 (03:30→22:36)
[2023-01-19 07:42] VITALS: BP 112/80
[2023-01-19] MEDS: DOCUSATE SODIUM 100 MG (COLACE) CAP PO SCH ×2 (09:02→21:31)
[2023-01-19] MEDS: SENNOSIDES 8.6 MG (SENOKOT) TAB PO SCH ×2 (09:03→21:32)
[2023-01-19] MEDS: CYANOCOBALAMIN 1,000 MCG (VITAMIN B-12) TABLET PO SCH (09:05)
[2023-01-19] MEDS: meTOproloL SUCCINATE 50 MG (TOPROL XL) TAB PO SCH (09:05)
[2023-01-19] MEDS: DONEPEZIL 10 MG (ARICEPT) TAB PO SCH (09:05)
[2023-01-19] MEDS: VITAMIN D3 25 MCG (1,000 UNITS) TABLET PO SCH (09:05)
[2023-01-19] MEDS: HYPOCHLOROUS ACID/NaCl (VASHE) 250 ML IR PRN ×2 (09:06→21:31)
[2023-01-19] MEDS: COLLAGENASE 30 GM (SANTYL) TUBE TP SCH ×2 (09:06→21:31)
[2023-01-19] MEDS: ENOXAPARIN 40 MG/0.4 ML (LOVENOX) SYR SC SCH (09:06)
[2023-01-19] MEDS: MICONAZOLE 2% POWDER (DESENEX AF) 90 GM TOP SCH ×2 (09:06→21:31)
[2023-01-19] MEDS: KCL 8 MEQ (MICRO K) TABLET PO SCH (10:56)
[2023-01-19] MEDS: ASPIRIN 325 MG (5 GR) TABLET PO SCH (10:56)
[2023-01-19 11:15] VITALS: BP 120/77
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
[2023-01-19 12:57] LABS: BASOPHILS # (AUTO) 0.1 10^3/uL (0.0-0.1); BASOPHILS % (AUTO) 0 % (0-10); EOSINOPHILS # (AUTO) 0.1 10^3/uL (0.0-0.3); EOSINOPHILS % (AUTO) 0 % (0-10); HEMATOCRIT 36 % (35-52); HEMOGLOBIN 11.7 g/dL (11.5-16.0); LYMPHOCYTES # (AUTO) 1.4 10^3/uL (1.0-4.0); LYMPHOCYTES % (AUTO) 4 % (12-44); MEAN CORPUSCULAR HEMOGLOBIN 26 pg (25-34); MEAN CORPUSCULAR HGB CONC 33 g/dL (32-36); MEAN CORPUSCULAR VOLUME 80 fL (80-99); MEAN PLATELET VOLUME 11.1 fL (9.0-12.2); MONOCYTES # (AUTO) 0.5 10^3/uL (0.0-1.0); MONOCYTES % (AUTO) 2 % (0-12); NEUTROPHILS # (AUTO) 28.8 10^3/uL (1.8-7.8); NEUTROPHILS % (AUTO) 92 % (42-75); PLATELET COUNT 377 10^3/uL (130-400)
[2023-01-19 13:00] LABS: POTASSIUM 3.7 MMOL/L (3.6-5.0)
[2023-01-19 13:03] LABS: WHITE BLOOD COUNT 31.4 10^3/uL (4.3-11.0)
[2023-01-19 13:05] LABS: CREATININE SERUM 0.88 MG/DL (0.60-1.30)
[2023-01-19 13:12] LABS: LYMPHOCYTES % (MANUAL) 12 %; MONOCYTES % (MANUAL) 4 %; NEUTROPHILS % (MANUAL) 84 %; PLATELET ESTIMATE ADEQUATE; RBC MORPH NORMAL; TOXIC GRANULATION/VACUOLAZATIO 1+
[2023-01-19 16:01] VITALS: BP 106/60
[2023-01-19 20:12] VITALS: BP 119/65
[2023-01-19 23:55] VITALS: BP 128/67
[2023-01-20] MEDS: CEFEPIME 1,000 MG/NS 50 ML IVPB IV SCH ×6 (03:19→16:26)
[2023-01-20 03:37] VITALS: BP 112/74
[2023-01-20 06:02] LABS: BASOPHILS # (AUTO) 0.1 10^3/uL (0.0-0.1); BASOPHILS % (AUTO) 0 % (0-10); EOSINOPHILS # (AUTO) 0.1 10^3/uL (0.0-0.3); EOSINOPHILS % (AUTO) 0 % (0-10); HEMATOCRIT 30 % (35-52); LYMPHOCYTES # (AUTO) 1.2 10^3/uL (1.0-4.0); LYMPHOCYTES % (AUTO) 4 % (12-44); MEAN CORPUSCULAR HEMOGLOBIN 27 pg (25-34); MEAN CORPUSCULAR HGB CONC 33 g/dL (32-36); MEAN CORPUSCULAR VOLUME 80 fL (80-99); MEAN PLATELET VOLUME 11.2 fL (9.0-12.2); MONOCYTES # (AUTO) 0.7 10^3/uL (0.0-1.0); MONOCYTES % (AUTO) 2 % (0-12); NEUTROPHILS # (AUTO) 30.3 10^3/uL (1.8-7.8); NEUTROPHILS % (AUTO) 92 % (42-75); PLATELET COUNT 326 10^3/uL (130-400)
[2023-01-20 06:09] LABS: WHITE BLOOD COUNT 33.1 10^3/uL (4.3-11.0)
[2023-01-20 06:26] LABS: ALBUMIN 1.8 GM/DL (3.2-4.5); BILIRUBIN,TOTAL 0.3 MG/DL (0.1-1.0); CALCIUM 8.1 MG/DL (8.5-10.1); CREATININE SERUM 0.71 MG/DL (0.60-1.30); POTASSIUM 3.5 MMOL/L (3.6-5.0); TOTAL PROTEIN 4.8 GM/DL (6.4-8.2)
[2023-01-20] MEDS: KCL 8 MEQ (MICRO K) TABLET PO SCH (06:54)
[2023-01-20 07:36] VITALS: BP 128/81
[2023-01-20] MEDS: DONEPEZIL 10 MG (ARICEPT) TAB PO SCH (08:49)
[2023-01-20] MEDS: meTOproloL SUCCINATE 50 MG (TOPROL XL) TAB PO SCH (08:49)
[2023-01-20] MEDS: ENOXAPARIN 40 MG/0.4 ML (LOVENOX) SYR SC SCH (08:49)
[2023-01-20] MEDS: VITAMIN D3 25 MCG (1,000 UNITS) TABLET PO SCH (08:49)
[2023-01-20] MEDS: ASPIRIN 325 MG (5 GR) TABLET PO SCH (08:49)
[2023-01-20] MEDS: CYANOCOBALAMIN 1,000 MCG (VITAMIN B-12) TABLET PO SCH (08:49)
--- NOTE | 2023-01-20 08:55 | Consultation-Cardiology ---
HPI-Cardiology Cardiology Consultation: Date of Consultation 01/16/23 Time Seen by a Provider: 08:30 Date of Admission 06-17-23 Attending Physician Ashlie Jama Aprn Admitting Physician Admitting Physician: Vida Foster MD Attending Physician: Francia Dorman DO Consulting Physician Cathy Jiménez MD HPI: Chief Complaint: Elevated troponin Ms. Ritter is a 67 yr old female admitted on 01-15-23 from the ED. She is unable to provide any information d/t dementia; she answers no to every question asked. I have reviewed the records from the ED, Dr. Weber, HPI was as follows: 67-year-old female with past medical history of dementia, urinary retention that is Lepe dependent, and relatively recent left hip fracture coming in via EMS from home. Initially the call was "breathing hard and in pain". Per EMS, the patient did not appear like to be in pain, was not yelling out like she normally would be if she was in pain since they did know her previously. EMS was concerned that the patient was covered in bedbugs. They also stated that she was covered in urine, the Lepe catheter looked very dirty, and that family was unsure of the last time it was even changed. 67-year-old female with above history coming in confused. The patient was tachycardic to the 130s on presentation. Blood pressure trended down to the 90s over 40s. She is afebrile. Physical exam with her being quite filthy, stench of urine and feces, and feces with actual maggots crawling in it. Multiple wounds at multiple stages all over her body, specifically 1 where she was sitting on her Lepe catheter. Lepe catheter actually not in place and has been pulled out. We replaced it draining jose purulent urine. Urinalysis obviously concerning for infection. Her white blood cell count is 30,000 with a left shift, lactic acid elevated around 4.6, normal creatinine, elevated troponin at 0.3. The patient was given 2 L of IV fluids as well as IV cefepime. Given rectal aspirin. EKG with no acute ischemic changes on my interpretation. Chest x-ray and 1 view pelvis ordered and interpreted by me showing no new fractures, no obvious pneumonia. I contacted Dr. Malone, cardiology, he is agreeable that this is likely a type II NSTEMI and does not require immediate intervention at this time. Per note from Dr. Holman on 01-19-23 he received a call from nursing staff repor ting pt HR of 140 bpm. Troponin was drawn at that time which was elevated as well as ECG was performed. D/t frail status and advanced dementia conservative management had been advised. Review of Systems-Cardiology Review of Systems Other comments Unable to obtain VER-Nryrjx-Teqfze Hx Patient Social History Marrital Status: single Employed/Student: retired Smoking Status: Unknown if Ever Smoked Have you traveled recently?: No Pt feels they are or have been: Yes Past Medical History PMH As described under Assessment. Family Medical History Family Medical History: Unable to obtain Allergies and Home Medications Allergies Coded Allergies: Penicillins (Verified Allergy, Unknown, 11/22/22) Patient Home Medication List Cholecalciferol (Vitamin D3) (Vitamin D3) 50 Mcg (2000 Unit) Tablet, 50 MCG PO DAILY, (Reported) Entered as Reported by: YUNIEL TRUONG on 01/16/231299 Last Action: Converted Cyanocobalamin (Vitamin B-12) (Vitamin B-12) 500 Mcg Tablet, 500 MCG PO DAILY, (Reported) Entered as Reported by: YUNIEL TRUONG on 01/16/231299 Last Action: Converted Donepezil HCl (Donepezil HCl) 10 Mg Tablet, 10 MG PO DAILY, (Reported) Entered as Reported by: YUNIEL TRUONG on 01/16/231299 Last Action: Continued Lisinopril/Hydrochlorothiazide (Lisinopril-Hctz 20-12.5 mg Tab) 20 Mg-12.5 Mg Tablet, 1 EACH PO DAILY, (Reported) Entered as Reported by: YUNIEL TRUONG on 01/16/23 1300 Last Action: Held Discontinued Medications Acetaminophen (Acetaminophen) 325 Mg Tablet, 650 MG PO Q4H PRN for TEMPERATURE Discontinued Reason: No Longer Taking Prescribed by: FRANCIA DORMAN on 11/27/221247 Last Action: Discontinued Amlodipine Besylate (Amlodipine Besylate) 5 Mg Tablet, 5 MG PO DAILY Discontinued Reason: No Longer Taking Prescribed by: FRANCIA DORMAN on 11/27/221247 Last Action: Discontinued Bethanechol Chloride (Bethanechol Chloride) 25 Mg Tablet, 25 MG PO ACHS Discontinued Reason: No Longer Taking Prescribed by: FRANCIA DORMAN on 11/27/221247 Last Action: Discontinued Clonidine HCl (Clonidine HCl) 0.1 Mg Tablet, 0.1 MG PO Q4HR PRN for sbp>160 Discontinued Reason: No Longer Taking Prescribed by: FRANCIA DORMAN on 11/27/221247 Last Action: Discontinued Cyanocobalamin (Vitamin B-12) (Vitamin B-12) 500 Mcg Tablet, 500 MCG PO 1500 Discontinued Reason: No Longer Taking Prescribed by: FRANCIA DORMAN on 11/27/221247 Last Action: Discontinued Docusate Sodium (Docusate Sodium) 100 Mg Capsule, 100 MG PO BID Discontinued Reason: No Longer Taking Prescribed by: FRANCIA DORMAN on 11/27/221247 Last Action: Discontinued Donepezil HCl (Donepezil HCl) 10 Mg Tablet, 10 MG PO 1500 Discontinued Reason: No Longer Taking Prescribed by: FRANCIA DORMAN on 11/27/221247 Last Action: Discontinued Enoxaparin Sodium (Enoxaparin Sodium) 40 Mg/0.4 Ml Syringe, 40 MG SC Q24H Discontinued Reason: No Longer Taking Prescribed by: FRANCIA DORMAN on 11/27/221247 Last Action: Discontinued Lisinopril (Lisinopril) 20 Mg Tablet, 20 MG PO DAILY Discontinued Reason: No Longer Taking Prescribed by: FRANCIA DORMAN on 11/27/221247 Last Action: Discontinued Lorazepam (Ativan) 0.5 Mg Tablet, 0.5 MG PO TID PRN for ANXIETY Discontinued Reason: No Longer Taking Prescribed by: FRANCIA DORMAN on 11/27/22 125 Last Action: Discontinued Nitrofurantoin Monohyd/M-Cryst (Macrobid 100 mg Capsule) 100 Mg Capsule, 1 TAB PO BID Discontinued Reason: No Longer Taking Prescribed by: FRANCIA DORMAN on 11/27/22 1324 Last Action: Discontinued Ondansetron (Ondansetron Odt) 4 Mg Tab.rapdis, 4 MG PO Q6H PRN for NAUSEA/VOMITING-1ST LINE Discontinued Reason: No Longer Taking Prescribed by: FRANCIA DORMAN on 11/27/221247 Last Action: Discontinued Oxycodone Hcl (Oxyir Tablet) 5 Mg Tab, 5 MG PO Q4HR PRN for PAIN-SEE DOSE INSTRUCTIONS Discontinued Reason: No Longer Taking Prescribed by: FRANCIA DORMAN on 11/27/22 1250 Last Action: Discontinued Polyethylene Glycol 3350 (Polyethylene Glycol 3350) 17 Gram Powd.pack, 17 GM PO BID PRN for CONSTIPATION-1ST LINE Discontinued Reason: No Longer Taking Prescribed by: FRANCIA DORMAN on 11/27/22 1248 Last Action: Discontinued Potassium Gluconate (Potassium) 595 Mg (99 Mg) Tablet, 99 MG PO 1500 Discontinued Reason: No Longer Taking Prescribed by: FRANCIA DORMAN on 11/27/22 1248 Last Action: Discontinued Physical Exam-Cardiology Physical Exam Vital Signs/I&O 01/20/23 01/20/23 01/21/23 21:10 23:49 03:33 Temp 36.3 36.6 Pulse 83 96 Resp 18 16 B/P (MAP) 132/79 (96) 128/78 (95) Pulse Ox 98 96 O2 Delivery Room Air Room Air Room Air 01/21/23 00:00 Intake Total 660 ml Output Total 250 ml Balance 410 ml Capillary Refill : Less Than 3 Seconds Constitutional: other HEENT: hearing is well preserved; No oral hygience is good Neck: No carotid bruit; carotid pulses are 2 + bilaterally Respiratory: No accessory muscle use, No respiratory distress; chest expansion is symmetric, chest is bilaterally symmetric, lungs clear to auscultation Cardiovascular: regular rate-rhythm; No JVD; S1 and S2 Gastrointestinal: No tender; soft, round; No guarding; audible bowel sounds Extremities: no lower extremity edema bilateral Neurologic/Psychiatric: grossly intact (moves all extremities) Skin: other (dressings to arms and feet which are D&I) Data Review Labs Microbiology 01/16/23 Blood Culture - Preliminary, Resulted No growth 01/16/23 MRSA Screen - Final, Complete MRSA not isolated 01/15/23 Urine Culture - Final, Complete Escherichia coli Enterococcus faecalis Radiology NAME: YARITZALARISA [facility] REC#: [id number] PT STATUS: ADM IN : 1955 PHYSICIAN: FRANCIA DORMAN DO ADMIT DATE: 01/16/23/ICU Signed Date of Exam:01/16/23 CHEST 1 VIEW, AP/PA ONLY EXAMINATION: Chest radiograph, portable AP view. DATE: 01/16/2023 1:55 PM INDICATION: 67-year-old female, evaluation of PICC line position. COMPARISON: January 15, 2023. FINDINGS: Heart size and mediastinal contours are unchanged. There is no identified pneumothorax. There is no large pleural effusion. There are right perihilar opacities. There is elevation of the right hemidiaphragm. The right-sided PIC line overlies the mid SVC and is new. IMPRESSION: 1. New right-sided PIC line overlies the mid SVC. 2. Nonspecific right perihilar opacification which may reflect atelectasis and/or infiltrate. Dictated by: Dictated on workstation # [id number] Dict: 01/16/23 1435 Trans: 01/16/23 1707 [facility] [id number] Interpreted by: JARRELL ARAMBULA MD Electronically signed by: JARRELL ARAMBULA MD 01/16/23 1707 A/P-Cardiology Assessment/Admission Diagnosis NSTEMI UTI with Sepsis - management per medical services Multiple wounds - management per wound care and medical services Dementia H/O recent hip fracture Discussion and Recomendations NSTEMI - continue conservative management at this time with ASA and BB - echocardiogram today to eval structure and function Sepsis - management per medical services UTI - management per medical services Wounds - management per medical/wound care services Monitor lab - replace electrolytes as indicated - replace potassium today Further recs will be based on her hospital course We would like to thank medical services for this consult MIGUEL A GTZ Jan 20, 2023 08:55
[2023-01-20] MEDS: SENNOSIDES 8.6 MG (SENOKOT) TAB PO SCH ×2 (09:08→21:26)
[2023-01-20] MEDS: DOCUSATE SODIUM 100 MG (COLACE) CAP PO SCH ×2 (09:08→21:26)
--- NOTE | 2023-01-20 09:44 | Physical Therapy Progress Note ---
Therapy Progress Note Patient became agitated with PT attempting to perform exercises. Patient yelled "Stop." PT ceased treatment. 1 ref CALLY LOBO PT Jan 20, 2023 09:44
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
[2023-01-20] MEDS: COLLAGENASE 30 GM (SANTYL) TUBE TP SCH ×2 (10:44→21:08)
[2023-01-20] MEDS: MICONAZOLE 2% POWDER (DESENEX AF) 90 GM TOP SCH ×2 (10:44→21:08)
--- NOTE | 2023-01-20 11:09 | Occupational Ther Daily Note ---
OT Current Status-Daily Note Subjective AWAKE and eyes open, does not give verbal responses or follow commands, granddaughter sleeping in recliner Mental Status/Objective Patient Orientation: Eyes Open ADL-Treatment Therapy Code Descriptions/Definitions Functional Mason Measure: 0=Not Assessed/NA 4=Minimal Assistance 1=Total Assistance 5=Supervision or Setup 2=Maximal Assistance 6=Modified Mason 3=Moderate Assistance 7=Complete IndependenceSCALE: Activities may be completed with or without assistive devices. 0-Bxuiridmey-tupxwyw completes the activity by him/herself with no assistance from a helper. 5-Set-up or Clean-up Assistance-helper sets up or cleans up; patient completes activity. [place]born assists only prior to or following the activity. 4-Supervision or Touching Assistance-helper provides verbal cues and/or t ouching/steadying and/or contact guard assistance as patient completes activity. Assistance may be provided throughout the activity or intermittently. 3-Partial/Moderate Assistance-helper does LESS THAN HALF the effort. Sanborn lifts, holds or supports trunk or limbs, but provides less than half the effort. 2-Substantial/Maximal Assistance-helper does MORE THAN HALF the effort. Sanborn lifts or holds trunk or limbs and provides more than half the effort. 9-Fnywgruet-nuawsp does ALL the effort. Patient does none of the effort to complete the activity. Or, the assistance of 2 or more helpers is required for the patient to complete the activity. If activity was not attempted, code reason: 7-Patient Refused. 9-Not Applicable-not attempted and the patient did not perform the activity before the current illness, exacerbation or injury. 10-Not Attempted due to Environmental Limitations-(lack of equipment, weather restraints, etc.). 88-Not Attempted due to Medical Conditions or Safety Concerns. Does not follow commands for ADLS Other Treatment Dependent assist from supine to sit EOB, POOR sitting balance lean right Max assist o sustain. MAX assist to return supine Patient does initiate brining RLE into bed. Sitting duration 10 less than 7 minutes Education OT Patient Education: Correct positioning, Exercise program, Instructions to caregiver, Purpose of tx/functional activities, Rehab process, Safety issues Teaching Recipient: Patient, Family Teaching Methods: Demonstration, Discussion Response to Teaching: Reinforcement Needed OT Bill Sorter Goals Care Home Goals Eating (QC): 4 Oral Hygiene (QC): 4 Toileting Hygiene (QC): 3 Shower/Bathe Self (QC): 3 Upper Body Dressing (QC): 4 Lower Body Dressing (QC): 3 On/Off Footwear (QC): 4 1=Demonstrate adherence to instructed precautions during ADL tasks. 2=Patient will verbalize/demonstrate understanding of assistive devices/modifications for ADL. 3=Patient will improve strength/tolerance for activity to enable patient to perform ADL's. OT Education/Plan Discharge Recommendations Plan/Recommendations: Continue POC Treatment Plan/Plan of Care Patient would benefit from OT for education, treatment and training to promote independence in ADL's, mobility, safety and/or upper extremity function for ADL's. Plan of Care: Caregiver Training, Functional Mobility, Group Exercise/Act as Ind, UE Funct Exercise/Act Treatment Duration: Jan 25, 2023 Frequency: 3 times per week (3-5 times per week) Estimated Hrs Per Day: .25 hour per day Rehab Potential: Poor Time Start Time: 09:06 Stop Time: 09:26 DATE: Jan 20, 2023 Total Time Billed (hr/min): 20 Billed Treatment Time FA 1 20 min JEN CAUSEY OT Jan 20, 2023 11:09
[2023-01-20 11:14] VITALS: BP 109/65
--- NOTE | 2023-01-20 14:06 | ST Dysphagia Evaluation ---
Speech Evaluation-General Medical Diagnosis Severe Sepsis Onset Date: Jan 16, 2023 Therapy Diagnosis Therapy Diagnosis: Mild Oral Dysphagia Precautions Precautions: Fall, Pressure Ulcer, Aspiration Precautions/Isolations: Contact Isolation, Aspiration, Fall Prevention, Pressure Ulcer Referral Referring Physician: Dr. Francia Lanza Reason for Referral: Evaluation/Treatment Medical History Pertinent Medical History: Dementia Reviewed History: Yes Speech PLF/Current-Dysphagia Prior Level of Function The patient remained nonverbal throughout the evaluation. The patient's granddaughter was present at bedside who stated the patient "Does pretty well and can eat most anything." Subjective The patient was lying in bed, sleeping, upon entrance to her room by the clinician. The patient made eye contact with the clinician when her name was spoken and agreed to P.O. trials. The patient was positioned upright in bed for safe swallowing. Oral Motor Skills Dentition: Natural Current Food Consistancy: Clear Liquids Ability to Follow Directions: Poor Oral Expression Ability: Severe Impairment Face Facial Symmetry: Symmetrical (Grossly symmetrical at rest.) The patient holds her head in a natural chin tuck position, with preference to the right. Oral-Facial Assessment Oral-Facial Dentition: Normal Labial Seal Description: Weak Volitional Dry Swallow: No Voluntary Cough: No Can Clear Throat Volitionally: No Productive Cough: No Productive Throat Clear: No Dysphagia Evaluation Consistencies Presented: Regular, Thin Liquid, Pureed Oral Phase: Anterior Spillage (Right.), Right Pocketing, Reduced Oral Transit The patient displays anterior loss of puree and masticated solid from the right labial side. Additionally, right sided pocketing is visualized throughout puree and solid consistency attempts. Initially, the patient expectorates out the un- masticated saltine cracker. The patient is provided a cookie and she displays prolonged but complete mastication and bolus formation. A subsequent thin liquid bolus was required to clear the solid material from the oral cavity. The patient displayed a timely pharyngeal swallow. The patient does not display s/s of suspected aspiration with thin liquids, puree, or solid consistencies tested. Dietary Recommendations: Mechanical Soft (MM5) Liquid Recommendations: Thin Recommendations: - MM5 with thin liquids, as tolerated. - Fully upright and alert for P.O. intake. - Feeding assistance, as necessary. - Assess for oral pocketing throughout and following P.O. intake. - Monitor for s/s of suspected aspiration with P.O. intake. If demonstrated, please contact speech pathology. - Speech pathology will continue to monitor the patient's tolerance of the current diet consistency and work towards diet upgrades. The results and recommendations were provided to the patient, the patient's granddaughter, and the patient's RN immediately following completion of the study. Dysphagia Evaluation Summary The patient demonstrated mild oral dysphagia characterized by decreased labial and lingual strength and coordination. Speech Short Term Goals Short Term Goals Short Term Goals 1. The patient will demonstrate safe swallowing precautions with 80% accuracy and moderate verbal and visual cueing from the clinician, family members, and staff. Time Frame-STG: Five Days. Speech Penitentiary Goals Penitentiary Goals 1. The patient will tolerate the least restrictive diet without s/s of suspected aspiration. Time Frame: One Week. Speech-Plan Treatment Plan Speech Therapy Treatment Plan: Continue Plan of Care Treatment Duration: Jan 24, 2023 Frequency: 4 times per week Estimated Hrs Per Day: .25 hour per day Rehab Potential: Fair Pt/Family Agrees to Plan: Yes Safety Risks/Education Teaching Recipient: Patient, Family Teaching Methods: Discussion (Granddaughter) Response to Teaching: Verbalize Understanding (Granddaughter) Education Topics Provided: Results, Recommendations, Plan of Care, Safe Swallowing Precautions Time Speech Therapy Time In: 12:09 Speech Therapy Time Out: 12:30 DATE: Jan 20, 2023 Total Billed Time: 21 Billed Treatment Time 1, MATHEW LOZA [facility]IZ[facility] ST Jan 20, 2023 14:06
[2023-01-20 15:24] VITALS: BP 100/68
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
--- NOTE | 2023-01-20 17:42 | Consultation-Cardiology ---
HPI-Cardiology Cardiology Consultation: Date of Consultation 01/20/23 Time Seen by a Provider: 13:00 Date of Admission Attending Physician Ashlie Jama Aprn Admitting Physician Admitting Physician: Vida Foster MD Attending Physician: Francia Dorman DO Consulting Physician CHANELL LI MD, MA, FACP, FACC, FSCAI, CCDS HPI: Chief Complaint: Elevated troponin Ms. Ritter is a 67 yr old female admitted on 01-15-23 from the ED. She is unable to provide any information d/t dementia; she answers no to every question asked. I have reviewed the records from the ED, Dr. Weber, HPI was as follows: 67-year-old female with past medical history of dementia, urinary retention that is Lepe dependent, and relatively recent left hip fracture coming in via EMS from home. Initially the call was "breathing hard and in pain". Per EMS, the patient did not appear like to be in pain, was not yelling out like she normally would be if she was in pain since they did know her previously. EMS was concerned that the patient was covered in bedbugs. They also stated that she was covered in urine, the Lepe catheter looked very dirty, and that family was unsure of the last time it was even changed. 67-year-old female with above history coming in confused. The patient was tachycardic to the 130s on presentation. Blood pressure trended down to the 90s over 40s. She is afebrile. Physical exam with her being quite filthy, stench of urine and feces, and feces with actual maggots crawling in it. Multiple wounds at multiple stages all over her body, specifically 1 where she was sitting on her Lepe catheter. Lepe catheter actually not in place and has been pulled out. We replaced it draining jose purulent urine. Urinalysis obviously concerning for infection. Her white blood cell count is 30,000 with a left shift, lactic acid elevated around 4.6, normal creatinine, elevated troponin at 0.3. The patient was given 2 L of IV fluids as well as IV cefepime. Given rectal aspirin. EKG with no acute ischemic changes on my interpretation. Chest x-ray and 1 view pelvis ordered and interpreted by me showing no new fractures, no obvious pneumonia. I contacted Dr. Malone, cardiology, he is agreeable that this is likely a type II NSTEMI and does not require immediate intervention at this time. Per note from Dr. Holman on 01-19-23 he received a call from nursing staff reporting pt HR of 140 bpm. Troponin was drawn at that time which was elevated as well as ECG was performed. D/t frail status and advanced dementia conservative management had been advised. TKQ-Uxpmmv-Oygpup Hx Patient Social History Marrital Status: single Employed/Student: retired Smoking Status: Unknown if Ever Smoked Have you traveled recently?: No Pt feels they are or have been: Yes Past Medical History PMH As described under Assessment. Family Medical History Family Medical History: Unable to obtain Allergies and Home Medications Allergies Coded Allergies: Penicillins (Verified Allergy, Unknown, 11/22/22) Patient Home Medication List Home Medication List Reviewed: Yes Cholecalciferol (Vitamin D3) (Vitamin D3) 50 Mcg (2000 Unit) Tablet, 50 MCG PO DAILY, (Reported) Entered as Reported by: YUNIEL TRUONG on 01/16/231299 Last Action: Converted Cyanocobalamin (Vitamin B-12) (Vitamin B-12) 500 Mcg Tablet, 500 MCG PO DAILY, (Reported) Entered as Reported by: YUNIEL TRUONG on 01/16/23 1300 Last Action: Converted Donepezil HCl (Donepezil HCl) 10 Mg Tablet, 10 MG PO DAILY, (Reported) Entered as Reported by: YUNIEL TRUONG on 01/16/231299 Last Action: Continued Lisinopril/Hydrochlorothiazide (Lisinopril-Hctz 20-12.5 mg Tab) 20 Mg-12.5 Mg Tablet, 1 EACH PO DAILY, (Reported) Entered as Reported by: YUNIEL TRUONG on 01/16/23 1300 Last Action: Held Discontinued Medications Acetaminophen (Acetaminophen) 325 Mg Tablet, 650 MG PO Q4H PRN for TEMPERATURE Discontinued Reason: No Longer Taking Prescribed by: FRANCIA DORMAN on 11/27/221247 Last Action: Discontinued Amlodipine Besylate (Amlodipine Besylate) 5 Mg Tablet, 5 MG PO DAILY Discontinued Reason: No Longer Taking Prescribed by: FRANCIA DORMAN on 11/27/221247 Last Action: Discontinued Bethanechol Chloride (Bethanechol Chloride) 25 Mg Tablet, 25 MG PO ACHS Discontinued Reason: No Longer Taking Prescribed by: FRANCIA DORMAN on 11/27/221247 Last Action: Discontinued Clonidine HCl (Clonidine HCl) 0.1 Mg Tablet, 0.1 MG PO Q4HR PRN for sbp>160 Discontinued Reason: No Longer Taking Prescribed by: FRANCIA DORMAN on 11/27/221247 Last Action: Discontinued Cyanocobalamin (Vitamin B-12) (Vitamin B-12) 500 Mcg Tablet, 500 MCG PO 1500 Discontinued Reason: No Longer Taking Prescribed by: FRANCIA DORMAN on 11/27/221247 Last Action: Discontinued Docusate Sodium (Docusate Sodium) 100 Mg Capsule, 100 MG PO BID Discontinued Reason: No Longer Taking Prescribed by: FRANCIA DORMAN on 11/27/221247 Last Action: Discontinued Donepezil HCl (Donepezil HCl) 10 Mg Tablet, 10 MG PO 1500 Discontinued Reason: No Longer Taking Prescribed by: FRANCIA DORMAN on 11/27/221247 Last Action: Discontinued Enoxaparin Sodium (Enoxaparin Sodium) 40 Mg/0.4 Ml Syringe, 40 MG SC Q24H Discontinued Reason: No Longer Taking Prescribed by: FRANCIA DORMAN on 11/27/221247 Last Action: Discontinued Lisinopril (Lisinopril) 20 Mg Tablet, 20 MG PO DAILY Discontinued Reason: No Longer Taking Prescribed by: FRANCIA DORMAN on 11/27/221247 Last Action: Discontinued Lorazepam (Ativan) 0.5 Mg Tablet, 0.5 MG PO TID PRN for ANXIETY Discontinued Reason: No Longer Taking Prescribed by: FRANCIA DORMAN on 11/27/22 125 Last Action: Discontinued Nitrofurantoin Monohyd/M-Cryst (Macrobid 100 mg Capsule) 100 Mg Capsule, 1 TAB PO BID Discontinued Reason: No Longer Taking Prescribed by: FRANCIA DORMAN on 11/27/22 1324 Last Action: Discontinued Ondansetron (Ondansetron Odt) 4 Mg Tab.rapdis, 4 MG PO Q6H PRN for NAUSEA/VOMITING-1ST LINE Discontinued Reason: No Longer Taking Prescribed by: FRANCIA DORMAN on 11/27/221247 Last Action: Discontinued Oxycodone Hcl (Oxyir Tablet) 5 Mg Tab, 5 MG PO Q4HR PRN for PAIN-SEE DOSE INSTRUCTIONS Discontinued Reason: No Longer Taking Prescribed by: FRANCIA DORMAN on 11/27/22 1250 Last Action: Discontinued Polyethylene Glycol 3350 (Polyethylene Glycol 3350) 17 Gram Powd.pack, 17 GM PO BID PRN for CONSTIPATION-1ST LINE Discontinued Reason: No Longer Taking Prescribed by: FRANCIA DORMAN on 11/27/22 1248 Last Action: Discontinued Potassium Gluconate (Potassium) 595 Mg (99 Mg) Tablet, 99 MG PO 1500 Discontinued Reason: No Longer Taking Prescribed by: FRANCIA DORMAN on 11/27/22 1248 Last Action: Discontinued Physical Exam-Cardiology Physical Exam Vital Signs/I&O 01/20/23 01/20/23 01/20/23 01/20/23 07:36 08:00 11:14 15:24 Temp 36.0 36.0 36.0 Pulse 98 99 97 Resp 18 18 17 B/P (MAP) 128/81 (97) 109/65 (80) 100/68 (79) Pulse Ox 96 99 96 O2 Delivery Room Air Room Air Room Air Room Air 01/20/23 00:00 Intake Total 1010 ml Output Total 230 ml Balance 780 ml Capillary Refill : Less Than 3 Seconds Constitutional: other HEENT: hearing is well preserved; No oral hygience is good Neck: No carotid bruit; carotid pulses are 2 + bilaterally Respiratory: No accessory muscle use, No respiratory distress; chest expansion is symmetric, chest is bilaterally symmetric, lungs clear to auscultation Cardiovascular: regular rate-rhythm; No JVD; S1 and S2 Gastrointestinal: No tender; soft, round; No guarding; audible bowel sounds Extremities: no lower extremity edema bilateral Neurologic/Psychiatric: grossly intact (moves all extremities) Skin: other (dressings to arms and feet which are D&I) Data Review Labs Laboratory Tests 01/20/23 05:15: White Blood Count 33.1*H, Red Blood Count 3.77L, Hemoglobin 10.0L, Hematocrit 30L, Mean Corpuscular Volume 80, Mean Corpuscular Hemoglobin 27, Mean Corpuscular Hemoglobin Concent 33, Red Cell Distribution Width 15.1H, Platelet Count 326, Mean Platelet Volume 11.2, Immature Granulocyte % (Auto) 2, Neutrophils (%) (Auto) 92H, Lymphocytes (%) (Auto) 4L, Monocytes (%) (Auto) 2, Eosinophils (%) (Auto) 0, Basophils (%) (Auto) 0, Neutrophils # (Auto) 30.3H, Lymphocytes # (Auto) 1.2, Monocytes # (Auto) 0.7, Eosinophils # (Auto) 0.1, Basophils # (Auto) 0.1, Immature Granulocyte # (Auto) 0.7H, Sodium Level 138, Potassium Level 3.5L, Chloride Level 113H, Carbon Dioxide Level 15L, Anion Gap 10, Blood Urea Nitrogen 31H, Creatinine 0.71, Estimat Glomerular Filtration Rate 93, BUN/Creatinine Ratio 44, Glucose Level 126H, Calcium Level 8.1L, Corrected Calcium 9.9, Total Bilirubin 0.3, Aspartate Amino Transf (AST/SGOT) 38H, Alanine Aminotransferase (ALT/SGPT) 24, Alkaline Phosphatase 73, Total Protein 4.8L, Albumin 1.8L Microbiology 01/16/23 Blood Culture - Preliminary, Resulted No growth 01/16/23 MRSA Screen - Final, Complete MRSA not isolated 01/15/23 Urine Culture - Final, Complete Escherichia coli Enterococcus faecalis A/P-Cardiology Assessment/Admission Diagnosis Type 2 IN due to sepsis UTI with Sepsis - management per medical services Multiple wounds - management per wound care and medical services Dementia H/O recent hip fracture Discussion and Recomendations * Treat with bb and ASA * DVT prophylaxis with enoxaparin * Echo * Monitor labs * Med svce managing sepsis and UTI and wounds CHANELL LI MD FACP [facility] Jan 20, 2023 17:42
[2023-01-20 19:39] VITALS: BP 111/73
[2023-01-20] MEDS: HYPOCHLOROUS ACID/NaCl (VASHE) 250 ML IR PRN (21:08)
[2023-01-20 23:49] VITALS: BP 132/79
[2023-01-21 03:33] VITALS: BP 128/78
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
[2023-01-21] MEDS: KCL 8 MEQ (MICRO K) TABLET PO SCH (06:14)
[2023-01-21 07:57] VITALS: BP 124/77
[2023-01-21] MEDS: DONEPEZIL 10 MG (ARICEPT) TAB PO SCH (08:38)
[2023-01-21] MEDS: VITAMIN D3 25 MCG (1,000 UNITS) TABLET PO SCH (08:38)
[2023-01-21] MEDS: DOCUSATE SODIUM 100 MG (COLACE) CAP PO SCH ×2 (08:38→19:24)
[2023-01-21] MEDS: meTOproloL SUCCINATE 50 MG (TOPROL XL) TAB PO SCH (08:38)
[2023-01-21] MEDS: ASPIRIN 325 MG (5 GR) TABLET PO SCH (08:38)
[2023-01-21] MEDS: CYANOCOBALAMIN 1,000 MCG (VITAMIN B-12) TABLET PO SCH (08:38)
[2023-01-21] MEDS: SENNOSIDES 8.6 MG (SENOKOT) TAB PO SCH ×2 (08:39→19:24)
[2023-01-21] MEDS: ENOXAPARIN 40 MG/0.4 ML (LOVENOX) SYR SC SCH (08:39)
[2023-01-21] MEDS: MICONAZOLE 2% POWDER (DESENEX AF) 90 GM TOP SCH ×2 (08:41→19:46)
[2023-01-21] MEDS: COLLAGENASE 30 GM (SANTYL) TUBE TP SCH ×2 (08:42→19:46)
[2023-01-21] MEDS: HYPOCHLOROUS ACID/NaCl (VASHE) 250 ML IR PRN (10:43)
--- NOTE | 2023-01-21 10:46 | Progress Note - Cardiology ---
Cardiology SOAP Progress Note Subjective: Unable to obtain any information from patient d/t confusion Objective: I&O/Vital Signs 01/21/23 01/21/23 01/21/23 01/21/23 07:57 08:00 11:26 15:41 Temp 36.4 36.4 35.3 Pulse 83 99 120 Resp 18 18 20 B/P (MAP) 124/77 (93) 115/76 (89) 123/81 (95) Pulse Ox 96 97 98 O2 Delivery Room Air Room Air Room Air Room Air 01/21/23 00:00 Intake Total 660 ml Output Total 250 ml Balance 410 ml Constitutional: other Respiratory: No accessory muscle use, No respiratory distress; chest expansion is symmetric, chest is bilaterally symmetric, lungs clear to auscultation Cardiovascular: regular rate-rhythm; No JVD; S1 and S2 Gastrointestional: No tender; soft, round; No guarding; audible bowel sounds Extremities: no lower extremity edema bilateral Neurologic/Psychiatric: grossly intact (moves all extremities) Skin: other (dressings to arms and feet which are D&I) Results/Procedures: Labs Microbiology 01/16/23 Blood Culture - Preliminary, Resulted No growth 01/16/23 MRSA Screen - Final, Complete MRSA not isolated 01/15/23 Urine Culture - Final, Complete Escherichia coli Enterococcus faecalis A/P: Assessment: Type 2 [place] due to sepsis UTI with Sepsis - management per medical services Multiple wounds - management per wound care and medical services Dementia H/O recent hip fracture Plan: * Treat with bb and ASA * DVT prophylaxis with enoxaparin * Echo * Monitor labs * Med svce managing sepsis and UTI and wounds MIGUEL A GTZ Jan 21, 2023 10:46
[2023-01-21 11:26] VITALS: BP 115/76
--- NOTE | 2023-01-21 11:39 | Physical Therapy Progress Note ---
Therapy Progress Note Patient refused treatment again on this date. PT will continue to attempt. 1 ref CALLY LOBO PT Jan 21, 2023 11:39
--- NOTE | 2023-01-21 13:26 | Progress Note - Cardiology ---
Cardiology SOAP Progress Note Subjective: Pt unable to communicate meaningfully Objective: I&O/Vital Signs 01/21/23 01/21/23 01/21/23 01/21/23 03:33 07:57 08:00 11:26 Temp 36.6 36.4 36.4 Pulse 96 83 99 Resp 16 18 18 B/P (MAP) 128/78 (95) 124/77 (93) 115/76 (89) Pulse Ox 96 96 97 O2 Delivery Room Air Room Air Room Air Room Air 01/21/23 00:00 Intake Total 660 ml Output Total 250 ml Balance 410 ml Constitutional: other Respiratory: No accessory muscle use, No respiratory distress; chest expansion is symmetric, chest is bilaterally symmetric, lungs clear to auscultation Cardiovascular: regular rate-rhythm; No JVD; S1 and S2 Gastrointestional: No tender; soft, round; No guarding; audible bowel sounds Extremities: no lower extremity edema bilateral Neurologic/Psychiatric: grossly intact (moves all extremities) Skin: other (dressings to arms and feet which are D&I) Results/Procedures: Labs Microbiology 01/16/23 Blood Culture - Preliminary, Resulted No growth 01/16/23 MRSA Screen - Final, Complete MRSA not isolated 01/15/23 Urine Culture - Final, Complete Escherichia coli Enterococcus faecalis Laboratory Tests 01/20/23 05:15 A/P: Assessment: Type 2 [place] due to sepsis - Echo on 01/20/23: LVEF 60-65%, technically difficult study due to patient's inability to cooperate with the study UTI with Sepsis - management per medical services Multiple wounds - management per wound care and medical services Dementia H/O recent hip fracture Plan: * Treat with bb and ASA * DVT prophylaxis with enoxaparin * Monitor labs * Med svce managing sepsis and leucocytois and UTI and wounds CHANELL LI MD FACP [facility] Jan 21, 2023 13:26
[2023-01-21 15:41] VITALS: BP 123/81
[2023-01-21 17:00] VITALS: BP 126/78
[2023-01-21 19:45] VITALS: BP 117/78
[2023-01-21] MEDS: ACETAMINOPHEN 500 MG TAB (TYLENOL) PO PRN (19:47)
[2023-01-22] VITALS (7 sets, daily range): BP systolic 114–144; BP diastolic 59–69
[2023-01-22] MEDS: KCL 8 MEQ (MICRO K) TABLET PO SCH (06:08)
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
[2023-01-22 07:39] LABS: POTASSIUM 4.4 MMOL/L (3.6-5.0)
[2023-01-22 07:40] LABS: CALCIUM 8.5 MG/DL (8.5-10.1)
[2023-01-22 07:44] LABS: CREATININE SERUM 0.79 MG/DL (0.60-1.30)
[2023-01-22] MEDS: VITAMIN D3 25 MCG (1,000 UNITS) TABLET PO SCH (08:05)
[2023-01-22] MEDS: SENNOSIDES 8.6 MG (SENOKOT) TAB PO SCH ×2 (08:06→20:01)
[2023-01-22] MEDS: meTOproloL SUCCINATE 50 MG (TOPROL XL) TAB PO SCH (08:06)
[2023-01-22] MEDS: DONEPEZIL 10 MG (ARICEPT) TAB PO SCH (08:06)
[2023-01-22] MEDS: DOCUSATE SODIUM 100 MG (COLACE) CAP PO SCH ×2 (08:06→20:00)
[2023-01-22] MEDS: ENOXAPARIN 40 MG/0.4 ML (LOVENOX) SYR SC SCH (08:06)
[2023-01-22] MEDS: COLLAGENASE 30 GM (SANTYL) TUBE TP SCH ×2 (08:11→23:33)
[2023-01-22] MEDS: CYANOCOBALAMIN 1,000 MCG (VITAMIN B-12) TABLET PO SCH (08:11)
[2023-01-22] MEDS: ASPIRIN 325 MG (5 GR) TABLET PO SCH (08:11)
[2023-01-22] MEDS: MICONAZOLE 2% POWDER (DESENEX AF) 90 GM TOP SCH ×2 (08:11→23:33)
--- NOTE | 2023-01-22 09:12 | Progress Note - Cardiology ---
Cardiology SOAP Progress Note Subjective: Unable to obtain any information from patient Objective: I&O/Vital Signs 01/22/23 01/22/23 01/22/23 01/23/23 20:07 21:00 23:51 03:26 Temp 36.3 36.3 36.4 Pulse 97 99 94 Resp 16 16 16 B/P (MAP) 119/59 (79) 126/60 (82) 124/61 (82) Pulse Ox 96 97 97 O2 Delivery Room Air Room Air Room Air Room Air 01/23/23 00:00 Intake Total 540 ml Output Total 450 ml Balance 90 ml Constitutional: other Respiratory: No accessory muscle use, No respiratory distress; chest expansion is symmetric, chest is bilaterally symmetric, lungs clear to auscultation Cardiovascular: regular rate-rhythm; No JVD; S1 and S2 Gastrointestional: No tender; soft, round; No guarding; audible bowel sounds Extremities: no lower extremity edema bilateral Neurologic/Psychiatric: grossly intact (moves all extremities) Skin: other (dressings to arms and feet which are D&I) Results/Procedures: Labs Microbiology 01/16/23 Blood Culture - Final, Complete No growth 01/16/23 MRSA Screen - Final, Complete MRSA not isolated 01/15/23 Urine Culture - Final, Complete Escherichia coli Enterococcus faecalis A/P: Assessment: Type 2 [place] due to sepsis - Echo on 01/20/23: LVEF 60-65%, technically difficult study due to patient's inability to cooperate with the study UTI with Sepsis - management per medical services Multiple wounds - management per wound care and medical services Dementia H/O recent hip fracture Plan: * Treat with bb and ASA * DVT prophylaxis with enoxaparin * Monitor labs * Med svce managing sepsis and leucocytois and UTI and wounds MIGUEL A GTZ Jan 22, 2023 09:11
--- NOTE | 2023-01-22 11:20 | Occupational Ther Daily Note ---
OT Current Status-Daily Note Subjective nonverbal, no family in room Mental Status/Objective Attachments: Lepe Catheter ADL-Treatment Therapy Code Descriptions/Definitions Functional [place] Measure: 0=Not Assessed/NA 4=Minimal Assistance 1=Total Assistance 5=Supervision or Setup 2=Maximal Assistance 6=Modified [place] 3=Moderate Assistance 7=Complete IndependenceSCALE: Activities may be completed with or without assistive devices. 1-Xyeuatwssz-idrhitg completes the activity by him/herself with no assistance from a helper. 5-Set-up or Clean-up Assistance-helper sets up or cleans up; patient completes activity. [place] assists only prior to or following the activity. 4-Supervision or Touching Assistance-helper provides verbal cues and/or touching/steadying and/or contact guard assistance as patient completes activity. Assistance may be provided throughout the activity or intermittently. 3-Partial/Moderate Assistance-helper does LESS THAN HALF the effort. [place] lifts, holds or supports trunk or limbs, but provides less than half the effort. 2-Substantial/Maximal Assistance-helper does MORE THAN HALF the effort. [place] lifts or holds trunk or limbs and provides more than half the effort. 8-Qxoxjppse-timnpx does ALL the effort. Patient does none of the effort to complete the activity. Or, the assistance of 2 or more helpers is required for the patient to complete the activity. If activity was not attempted, code reason: 7-Patient Refused. 9-Not Applicable-not attempted and the patient did not perform the activity before the current illness, exacerbation or injury. 10-Not Attempted due to Environmental Limitations-(lack of equipment, weather restraints, etc.). 88-Not Attempted due to Medical Conditions or Safety Concerns. Eating (QC): 3 (one bite of cookie , when placed near mouth, holds small juice cup and brings to mouth, drinks entire OJ. Hands cup to OT) Oral Hygiene (QC): 2 Shower/Bathe Self (QC): 1 (shower cap and hair hygiene performed by OT, Patient only reaches to touch cap) Upper Body Dressing (QC): 2 Lower Body Dressing (QC): 1 On/Off Footwear: 1 Toileting Hygiene (QC): 1 Toilet Transfer (QC): 1 wounds on feet, buttocks Education OT Patient Education: Modified ADL techniques, Purpose of tx/functional activities, Reviewed precautions, Safety issues Teaching Recipient: Patient Response to Teaching: Unable to Comprehend, Reinforcement Needed OT Commercial Housekeeper Goals Commercial Housekeeper Goals Eating (QC): 4 Oral Hygiene (QC): 4 Toileting Hygiene (QC): 3 Shower/Bathe Self (QC): 3 Upper Body Dressing (QC): 4 Lower Body Dressing (QC): 3 On/Off Footwear (QC): 4 1=Demonstrate adherence to instructed precautions during ADL tasks. 2=Patient will verbalize/demonstrate understanding of assistive devices/modifications for ADL. 3=Patient will improve strength/tolerance for activity to enable patient to perform ADL's. OT Education/Plan Discharge Recommendations Plan/Recommendations: Continue POC Treatment Plan/Plan of Care Patient would benefit from OT for education, treatment and training to promote independence in ADL's, mobility, safety and/or upper extremity function for ADL's. Plan of Care: Caregiver Training, Functional Mobility, Group Exercise/Act as Ind, UE Funct Exercise/Act Treatment Duration: Jan 25, 2023 Frequency: 3 times per week (3-5 times per week) Estimated Hrs Per Day: .25 hour per day Rehab Potential: Fair Sat EOB w/ Mod assistance leans to right. Time Start Time: 08:49 Stop Time: 09:05 DATE: Jan 22, 2023 Total Time Billed (hr/min): 16 Billed Treatment Time FA 1 16 min JEN CAUSEY OT Jan 22, 2023 11:20
--- NOTE | 2023-01-22 13:17 | Physical Therapy Progress Note ---
Therapy Progress Note Patient refused PT treatment. Patient was educated on the benefits of activity to promote healing, however patient barely opened her eyes and ignored this therapist. Will attempt treatment again tomorrow and progress as patient is able to tolerate. LORRIE ABURTO PT Jan 22, 2023 13:17
--- NOTE | 2023-01-22 15:05 | Progress Note - Cardiology ---
Cardiology SOAP Progress Note Subjective: Unable to communicate meaningfully Objective: I&O/Vital Signs 01/22/23 01/22/23 01/22/23 01/22/23 04:06 07:35 08:00 11:04 Temp 36.0 35.0 35.8 Pulse 108 96 90 Resp 18 18 20 B/P (MAP) 114/61 (78) 130/60 (83) 122/60 (80) Pulse Ox 95 97 95 95 O2 Delivery Room Air Room Air Room Air Room Air 01/22/23 00:00 Intake Total 450 ml Output Total 475 ml Balance -25 ml Constitutional: other Respiratory: No accessory muscle use, No respiratory distress; chest expansion is symmetric, chest is bilaterally symmetric, lungs clear to auscultation Cardiovascular: regular rate-rhythm; No JVD; S1 and S2 Gastrointestional: No tender; soft, round; No guarding; audible bowel sounds Extremities: no lower extremity edema bilateral Neurologic/Psychiatric: grossly intact (moves all extremities) Skin: other (dressings to arms and feet which are D&I) Results/Procedures: Labs Laboratory Tests 01/22/23 07:21: Sodium Level 137, Potassium Level 4.4, Chloride Level 111H, Carbon Dioxide Level 18L, Anion Gap 8, Blood Urea Nitrogen 44H, Creatinine 0.79, Estimat Glomerular Filtration Rate 82, BUN/Creatinine Ratio 56, Glucose Level 129H, Calcium Level 8.5, Magnesium Level 2.0 Microbiology 01/16/23 Blood Culture - Preliminary, Resulted No growth 01/16/23 MRSA Screen - Final, Complete MRSA not isolated 01/15/23 Urine Culture - Final, Complete Escherichia coli Enterococcus faecalis Laboratory Tests 01/22/23 07:21 A/P: Assessment: Type 2 [place] due to sepsis - Echo on 01/20/23: LVEF 60-65%, technically difficult study due to patient's inability to cooperate with the study UTI with Sepsis - management per medical services Multiple wounds - management per wound care and medical services Dementia H/O recent hip fracture Plan: * Treat with bb and ASA * DVT prophylaxis with enoxaparin * Monitor labs * Med svce managing sepsis and leucocytois and UTI and wounds CHANELL LI MD FACP [facility] Jan 22, 2023 15:05
[2023-01-22] MEDS: ACETAMINOPHEN 500 MG TAB (TYLENOL) PO PRN (17:01)
[2023-01-23 03:26] VITALS: BP 124/61
[2023-01-23] MEDS: KCL 8 MEQ (MICRO K) TABLET PO SCH (05:58)
[2023-01-23 08:07] VITALS: BP 128/63
[2023-01-23] MEDS: ASPIRIN 325 MG (5 GR) TABLET PO SCH (08:28)
[2023-01-23] MEDS: CYANOCOBALAMIN 1,000 MCG (VITAMIN B-12) TABLET PO SCH (08:28)
[2023-01-23] MEDS: VITAMIN D3 25 MCG (1,000 UNITS) TABLET PO SCH (08:28)
[2023-01-23] MEDS: DOCUSATE SODIUM 100 MG (COLACE) CAP PO SCH ×2 (08:28→19:50)
[2023-01-23] MEDS: meTOproloL SUCCINATE 50 MG (TOPROL XL) TAB PO SCH (08:28)
[2023-01-23] MEDS: DONEPEZIL 10 MG (ARICEPT) TAB PO SCH (08:28)
[2023-01-23] MEDS: SENNOSIDES 8.6 MG (SENOKOT) TAB PO SCH ×2 (08:28→19:50)
[2023-01-23] MEDS: COLLAGENASE 30 GM (SANTYL) TUBE TP SCH ×2 (08:30→21:41)
[2023-01-23] MEDS: MICONAZOLE 2% POWDER (DESENEX AF) 90 GM TOP SCH ×2 (08:30→21:40)
[2023-01-23] MEDS: ENOXAPARIN 40 MG/0.4 ML (LOVENOX) SYR SC SCH (08:40)
--- NOTE | 2023-01-23 09:07 | Progress Note - Cardiology ---
Cardiology SOAP Progress Note Subjective: Sitting up in bed Nods her head no when asked if she is having any pain Unable to provide any other information Objective: I&O/Vital Signs 01/27/23 08:00 O2 Delivery Room Air 01/27/23 00:00 Intake Total 450 ml Output Total 565 ml Balance -115 ml Constitutional: other Respiratory: No accessory muscle use, No respiratory distress; chest expansion is symmetric, chest is bilaterally symmetric, lungs clear to auscultation Cardiovascular: regular rate-rhythm; No JVD; S1 and S2 Gastrointestional: No tender; soft, round; No guarding; audible bowel sounds Extremities: no lower extremity edema bilateral Neurologic/Psychiatric: grossly intact (moves all extremities) Skin: other (dressings to arms and feet which are D&I) Results/Procedures: Labs Microbiology 01/16/23 Blood Culture - Final, Complete No growth 01/16/23 MRSA Screen - Final, Complete MRSA not isolated 01/15/23 Urine Culture - Final, Complete Escherichia coli Enterococcus faecalis A/P: Assessment: Type 2 [place] due to sepsis - Echo on 01/20/23: LVEF 60-65%, technically difficult study due to patient's inability to cooperate with the study UTI with Sepsis - management per medical services Multiple wounds - management per wound care and medical services Dementia H/O recent hip fracture Plan: * Contineu bb and ASA * DVT prophylaxis with enoxaparin * Monitor labs * Med svce managing sepsis and leucocytois and UTI and wounds * Plan is for LTC facility placement MIGUEL A GTZ Jan 23, 2023 09:06
--- NOTE | 2023-01-23 09:39 | Progress Note - Cardiology ---
Cardiology SOAP Progress Note Subjective: Unable to communicate with the patient Eldest daughter by bedside Objective: I&O/Vital Signs 01/22/23 01/23/23 01/23/23 23:51 03:26 08:07 Temp 36.3 36.4 36.2 Pulse 99 94 105 Resp 16 16 18 B/P (MAP) 126/60 (82) 124/61 (82) 128/63 (84) Pulse Ox 97 97 92 O2 Delivery Room Air Room Air Room Air 01/23/23 00:00 Intake Total 540 ml Output Total 450 ml Balance 90 ml Constitutional: No AAO x 3; other (non-communicative) Respiratory: chest expansion is symmetric, chest is bilaterally symmetric, lungs clear to auscultation Cardiovascular: regular rate-rhythm, S1 and S2 Gastrointestional: soft, round, audible bowel sounds Extremities: no lower extremity edema bilateral Neurologic/Psychiatric: No oriented x 3; other (seems to move all limbs) Skin: other (multiple dressings on the back, not removed) Results/Procedures: Labs Microbiology 01/16/23 Blood Culture - Final, Complete No growth 01/16/23 MRSA Screen - Final, Complete MRSA not isolated 01/15/23 Urine Culture - Final, Complete Escherichia coli Enterococcus faecalis Laboratory Tests 01/22/23 07:21 A/P: Assessment: Type 2 [place] due to sepsis - Echo on 01/20/23: LVEF 60-65%, technically difficult study due to patient's inability to cooperate with the study UTI with Sepsis - management per medical services Multiple wounds / pressure sores - management per Dr Lanza and Wound Care Dementia H/O recent hip fracture Plan: * Contineu bb and ASA * DVT prophylaxis with enoxaparin * Monitor labs * Med svce managing sepsis and leucocytois and UTI and wounds * Plan is for LTC facility placement [facility] Jan 23, 2023 09:39
--- NOTE | 2023-01-23 09:43 | Physical Therapy Daily Note ---
PT Daily Note-Current Subjective Patient more alert on this date. Pain Section J - Health Conditions 1. Rarely or not at all 2. Occasionally 3. Frequently 4. Almost constantly 8. Unable to answer Pain Effect on Sleep: 8 Pain Interference with Therapy: 8 Pain Interference w/Day-to-Day: 8 Transfers SCALE: Activities may be completed with or without assistive devices. 1-Dugfmfadde-shffklz completes the activity by him/herself with no assistance from a helper. 5-Set-up or Clean-up Assistance-helper sets up or cleans up; patient completes activity. [place] assists only prior to or following the activity. 4-Supervision or Touching Assistance-helper provides verbal cues and/or touching/steadying and/or contact guard assistance as patient completes activity. Assistance may be provided throughout the activity or intermittently. 3-Partial/Moderate Assistance-helper does LESS THAN HALF the effort. [place]ans lifts, holds or supports trunk or limbs, but provides less than half the effort. 2-Substantial/Maximal Assistance-helper does MORE THAN HALF the effort. [place]ans lifts or holds trunk or limbs and provides more than half the effort. 9-Iqeobaemx-hfyfxp does ALL the effort. Patient does none of the effort to complete the activity. Or, the assistance of 2 or more helpers is required for the patient to complete the activity. If activity was not attempted, code reason: 7-Patient Refused. 9-Not Applicable-not attempted and the patient did not perform the activity before the current illness, exacerbation or injury. 10-Not Attempted due to Environmental Limitations-(lack of equipment, weather restraints, etc.). 88-Not Attempted due to Medical Conditions or Safety Concerns. Sit to Lying (QC): 1 (x 2) Lying to Sitting/Side of Bed(Q: 1 (x 2) Exercises Supine Ex: Ankle pumps, Heel Slides, Straight leg raise, Hip abd/add Supine Reps: 15 (PROM) Assessment Patient sat EOB for several minutes before pushing backward to return to bed. Patient requires dependent assist of 2 with all mobility. Patient tolerated treatment well and is in bed with bed alarm activated for patient's safety. PT [facility] Goals Pattern Lease Inspector Goals PT Pattern Lease Inspector Goals Time Frame: Feb 01, 2023 Roll Left & Right (QC): 2 Sit to Lying (QC): 2 Lying-Sitting on Side/Bed(QC): 2 Sit to Stand (QC): 2 Chair/Wmy-qi-Evnxk Xfer(QC): 2 PT Plan Treatment/Plan Treatment Plan: Continue Plan of Care Treatment Plan: Bed Mobility, Education, Functional Activity Pa, Functional Strength, Gait, Safety, Therapeutic Exercise, Transfers Treatment Duration: Feb 01, 2023 Frequency: 5 times per week Estimated Hrs Per Day: .25 hour per day Patient and/or Family Agrees t: Yes Time Time In: 851 Time Out: 901 DATE: Jan 23, 2023 Total Billed Treatment Time: 10 Total Billed Treatment 1 visit EX 10 min CALLY LOBO PT Jan 23, 2023 09:43
--- NOTE | 2023-01-23 10:13 | Occupational Ther Daily Note ---
OT Current Status-Daily Note Subjective Family present when entered room and returns at completion of therapy, Patient reclined in bed w/ one eye open and being fed ice cream Mental Status/Objective Patient Orientation: Non-Verbal/Aphasic Attachments: Lepe Catheter ADL-Treatment Therapy Code Descriptions/Definitions Functional [place] Measure: 0=Not Assessed/NA 4=Minimal Assistance 1=Total Assistance 5=Supervision or Setup 2=Maximal Assistance 6=Modified [place] 3=Moderate Assistance 7=Complete IndependenceSCALE: Activities may be completed with or without assistive devices. 1-Pskbhbcqlt-zpfbgsx completes the activity by him/herself with no assistance from a helper. 5-Set-up or Clean-up Assistance-helper sets up or cleans up; patient completes activity. [place] assists only prior to or following the activity. 4-Supervision or Touching Assistance-helper provides verbal cues and/or touching/steadying and/or contact guard assistance as patient completes activity. Assistance may be provided throughout the activity or intermittently. 3-Partial/Moderate Assistance-helper does LESS THAN HALF the effort. [place] lifts, holds or supports trunk or limbs, but provides less than half the effort. 2-Substantial/Maximal Assistance-helper does MORE THAN HALF the effort. [place] lifts or holds trunk or limbs and provides more than half the effort. 0-Xdyifmmkr-jtwlmp does ALL the effort. Patient does none of the effort to complete the activity. Or, the assistance of 2 or more helpers is required for the patient to complete the activity. If activity was not attempted, code reason: 7-Patient Refused. 9-Not Applicable-not attempted and the patient did not perform the activity before the current illness, exacerbation or injury. 10-Not Attempted due to Environmental Limitations-(lack of equipment, weather restraints, etc.). 88-Not Attempted due to Medical Conditions or Safety Concerns. Eating (QC): 1 (makes no attempts top hold utensils o=r cups/straw this date, requires VC to shallow, makes no attemtp to wipe mouth) Oral Hygiene (QC): 1 Shower/Bathe Self (QC): 88 (unsafe to sit in shower) Upper Body Dressing (QC): 1 Lower Body Dressing (QC): 1 On/Off Footwear: 1 Toileting Hygiene (QC): 1 Toilet Transfer (QC): 1 sitting EOB for ice cream and beverage, oral and face grooming, pushes against therapist to lay down in bed, Does not initiate lifting legs into bed. Education OT Patient Education: Correct positioning, Exercise program, Purpose of tx/functional activities, Reviewed precautions, Rehab process, Safety issues, Transfer techniques Teaching Recipient: Patient Teaching Methods: Demonstration Response to Teaching: Reinforcement Needed OT Prison Goals Mental Health Therapist Goals Eating (QC): 4 Oral Hygiene (QC): 4 Toileting Hygiene (QC): 3 Shower/Bathe Self (QC): 3 Upper Body Dressing (QC): 4 Lower Body Dressing (QC): 3 On/Off Footwear (QC): 4 1=Demonstrate adherence to instructed precautions during ADL tasks. 2=Patient will verbalize/demonstrate understanding of assistive devices/modifications for ADL. 3=Patient will improve strength/tolerance for activity to enable patient to perform ADL's. OT Education/Plan Discharge Recommendations Plan/Recommendations: Continue POC Treatment Plan/Plan of Care Patient would benefit from OT for education, treatment and training to promote independence in ADL's, mobility, safety and/or upper extremity function for ADL's. Plan of Care: Caregiver Training, Functional Mobility, Group Exercise/Act as Ind, UE Funct Exercise/Act Treatment Duration: Jan 25, 2023 Frequency: 3 times per week (3-5 times per week) Estimated Hrs Per Day: .25 hour per day Rehab Potential: Fair positioned n bed w/ rails up until family arrives for patient safety. all needs met Time Start Time: 08:58 Stop Time: 09:10 DATE: Jan 23, 2023 Total Time Billed (hr/min): 12 Billed Treatment Time ADL 12 min JEN CAUSEY OT Jan 23, 2023 10:13
[2023-01-23 11:10] VITALS: BP 123/58
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
--- NOTE | 2023-01-23 15:28 | Speech Therapy Daily Note ---
Speech Daily Progress Note Subjective Date Seen by Provider: Jan 23, 2023 Time Seen by Provider: 13:03 The patient was seated upright in bed, awake, upon entrance to her room by the clinician. The patient did not greet the patient verbally but does make eye contact when the clinician communicates with her. The patient's family member is present at bedside and remains for the skilled treatment session. Objective The patient's lunch tray was present, however, she refused all items presented by the clinician. The patient was agreeable to chocolate ice cream, only. The clinician fed the patient chocolate ice-cream via half teaspoon. The patient displayed appropriate oral bolus acceptance and s/s of suspected aspiration were not demonstrated. Safe swallowing strategies were discussed and provided to the patient and the family member. At this time, the clinician agrees with the current plan of care. Assessment Assessment Current Status: Fair Progress Treatment Plan Continue Plan of Care Speech Short Term Goals Short Term Goals Short Term Goals 1. The patient will demonstrate safe swallowing precautions with 80% accuracy and moderate verbal and visual cueing from the clinician, family members, and staff. Time Frame-STG: Five Days. Speech Half-Way Goals Half-Way Goals 1. The patient will tolerate the least restrictive diet without s/s of suspected aspiration. Time Frame: One Week. Speech-Plan Treatment Plan Speech Therapy Treatment Plan: Continue Plan of Care Treatment Duration: Jan 24, 2023 Frequency: 4 times per week Estimated Hrs Per Day: .25 hour per day Rehab Potential: Fair Pt/Family Agrees to Plan: Yes Safety Risks/Education Teaching Recipient: Patient, Family Teaching Methods: Discussion Response to Teaching: Verbalize Understanding (Family Member) Education Topics Provided: Safe Swallowing Precautions Time Speech Therapy Time In: 13:03 Speech Therapy Time Out: 13:15 DATE: Jan 23, 2023 Total Billed Time: 12 Billed Treatment Time 1, MATHEW SLOANE ESPINAL Jan 23, 2023 15:28
[2023-01-23 15:50] VITALS: BP 130/63
[2023-01-23 19:49] VITALS: BP 129/60
[2023-01-24 00:02] VITALS: BP 127/60
[2023-01-24] MEDS: KCL 8 MEQ (MICRO K) TABLET PO SCH (06:04)
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
[2023-01-24 07:34] VITALS: BP 127/80
[2023-01-24] MEDS: CYANOCOBALAMIN 1,000 MCG (VITAMIN B-12) TABLET PO SCH (08:40)
[2023-01-24] MEDS: meTOproloL SUCCINATE 50 MG (TOPROL XL) TAB PO SCH (08:40)
[2023-01-24] MEDS: VITAMIN D3 25 MCG (1,000 UNITS) TABLET PO SCH (08:40)
[2023-01-24] MEDS: MICONAZOLE 2% POWDER (DESENEX AF) 90 GM TOP SCH (08:40)
[2023-01-24] MEDS: DOCUSATE SODIUM 100 MG (COLACE) CAP PO SCH (08:40)
[2023-01-24] MEDS: DONEPEZIL 10 MG (ARICEPT) TAB PO SCH (08:40)
[2023-01-24] MEDS: SENNOSIDES 8.6 MG (SENOKOT) TAB PO SCH (08:40)
[2023-01-24] MEDS: ASPIRIN 325 MG (5 GR) TABLET PO SCH (08:40)
[2023-01-24] MEDS: COLLAGENASE 30 GM (SANTYL) TUBE TP SCH (08:41)
[2023-01-24] MEDS: ENOXAPARIN 40 MG/0.4 ML (LOVENOX) SYR SC SCH (08:52)
--- NOTE | 2023-01-24 08:56 | Progress Note - Cardiology ---
Cardiology SOAP Progress Note Subjective: Unable to obtain any information from patient Objective: I&O/Vital Signs 01/27/23 08:00 O2 Delivery Room Air 01/27/23 00:00 Intake Total 450 ml Output Total 565 ml Balance -115 ml Constitutional: No AAO x 3; other (non-communicative) Respiratory: chest expansion is symmetric, chest is bilaterally symmetric, lungs clear to auscultation Cardiovascular: regular rate-rhythm, S1 and S2 Gastrointestional: soft, round, audible bowel sounds Extremities: no lower extremity edema bilateral Neurologic/Psychiatric: No oriented x 3; other (seems to move all limbs) Skin: other (multiple dressings on the back, not removed) Results/Procedures: Labs Microbiology 01/16/23 Blood Culture - Final, Complete No growth 01/16/23 MRSA Screen - Final, Complete MRSA not isolated 01/15/23 Urine Culture - Final, Complete Escherichia coli Enterococcus faecalis A/P: Assessment: Type 2 HI due to sepsis - Echo on 01/20/23: LVEF 60-65%, technically difficult study due to patient's inability to cooperate with the study UTI with Sepsis - management per medical services Multiple wounds / pressure sores - management per Dr Lanza and Wound Care Dementia H/O recent hip fracture Plan: * Contineu bb and ASA * DVT prophylaxis with enoxaparin * Monitor labs * Med svce managing sepsis and leucocytois and UTI and wounds * Plan is for LTC facility placement MIGUEL A GTZ Jan 24, 2023 08:56
--- NOTE | 2023-01-24 09:58 | Physical Therapy Progress Note ---
Therapy Progress Note Patient declined PT as PT attempted to perform bilateral LE exercises. Patient yells, "NO" with increase agitation. 1 ref CALLY LOBO PT Jan 24, 2023 09:58
--- NOTE | 2023-01-24 10:58 | Occupational Ther Daily Note ---
OT Current Status-Daily Note Subjective Pt was in bed, very sleepy. Difficult to wake up. ADL-Treatment While helping to pull pt up in bed, it was observed that she was incontinent of stools. Treatment stopped so that nursing could care for her. Therapy Code Descriptions/Definitions Functional [place] Measure: 0=Not Assessed/NA 4=Minimal Assistance 1=Total Assistance 5=Supervision or Setup 2=Maximal Assistance 6=Modified [place] 3=Moderate Assistance 7=Complete IndependenceSCALE: Activities may be completed with or without assistive devices. 3-Xzqniljyne-hbieuat completes the activity by him/herself with no assistance from a helper. 5-Set-up or Clean-up Assistance-helper sets up or cleans up; patient completes activity. [place] assists only prior to or following the activity. 4-Supervision or Touching Assistance-helper provides verbal cues and/or touching/steadying and/or contact guard assistance as patient completes activity. Assistance may be provided throughout the activity or intermittently. 3-Partial/Moderate Assistance-helper does LESS THAN HALF the effort. [place] lifts, holds or supports trunk or limbs, but provides less than half the effort. 2-Substantial/Maximal Assistance-helper does MORE THAN HALF the effort. [place] lifts or holds trunk or limbs and provides more than half the effort. 1-[place]-lxwtxq does ALL the effort. Patient does none of the effort to complete the activity. Or, the assistance of 2 or more helpers is required for the patient to complete the activity. If activity was not attempted, code reason: 7-Patient Refused. 9-Not Applicable-not attempted and the patient did not perform the activity before the current illness, exacerbation or injury. 10-Not Attempted due to Environmental Limitations-(lack of equipment, weather restraints, etc.). 88-Not Attempted due to Medical Conditions or Safety Concerns. OT Keg Raiser Goals Keg Raiser Goals Eating (QC): 4 Oral Hygiene (QC): 4 Toileting Hygiene (QC): 3 Shower/Bathe Self (QC): 3 Upper Body Dressing (QC): 4 Lower Body Dressing (QC): 3 On/Off Footwear (QC): 4 1=Demonstrate adherence to instructed precautions during ADL tasks. 2=Patient will verbalize/demonstrate understanding of assistive geovani natali/modifications for ADL. 3=Patient will improve strength/tolerance for activity to enable patient to perform ADL's. OT Education/Plan Discharge Recommendations Plan/Recommendations: Continue POC Treatment Plan/Plan of Care Patient would benefit from OT for education, treatment and training to promote independence in ADL's, mobility, safety and/or upper extremity function for ADL's. Plan of Care: Caregiver Training, Functional Mobility, Group Exercise/Act as Ind, UE Funct Exercise/Act Treatment Duration: Jan 25, 2023 Frequency: 3 times per week (3-5 times per week) Estimated Hrs Per Day: .25 hour per day Rehab Potential: Fair Time Start Time: 09:44 Stop Time: 09:47 DATE: Jan 24, 2023 Total Time Billed (hr/min): 3 Billed Treatment Time visit MAC PULIDO OT Jan 24, 2023 10:58
[2023-01-24] MEDS ORDERED: morphine INJ 4 MG/ML 1 ML (VIAL/SYRINGE) IV PRN (12:00)
[2023-01-24] MEDS ORDERED: PROMETHAZINE INJ 25 MG/ML (PHENERGAN) AMP IVP PRN (12:00)
[2023-01-24] MEDS ORDERED: GLYCOPYRROLATE 0.2 MG/ML (ROBINUL) 2 ML VIAL IV PRN (12:00)
[2023-01-24] MEDS ORDERED: ONDANSETRON 4 MG/2 ML (SDV) Z0FRAN IVP PRN (12:00)
[2023-01-24] MEDS ORDERED: RT-ALBUTEROL/IPRATROPIUM 3 ML (DUONEB) VIAL INH PRN (12:00)
[2023-01-24] MEDS ORDERED: BISACODYL 10 MG SUPP (DULCOLAX) PR PRN (12:00)
[2023-01-24] MEDS ORDERED: LORazepam 1 MG (ATIVAN) TAB SL PRN (12:00)
[2023-01-24] MEDS ORDERED: SALIVA SUBSTITUTE 60 ML SPRAY(MOUTHKOTE) MM PRN (12:00)
[2023-01-24] MEDS ORDERED: ARTIFICAL TEARS 0.4 ML UNIT DOSE (REFRESH PLUS) OU PRN (12:00)
[2023-01-24] MEDS ORDERED: ACETAMINOPHEN 650 MG SUPP (TYLENOL) PR PRN (12:00)
[2023-01-24] MEDS ORDERED: ATROPINE 1% OPHTHALMIC SOLN 2 ML SL PRN (12:00)
--- NOTE | 2023-01-24 12:23 | Progress Note - Cardiology ---
Cardiology SOAP Progress Note Subjective: Non-communicative Objective: I&O/Vital Signs 01/24/23 01/24/23 07:34 08:30 Temp 36.2 Pulse 102 Resp 18 B/P (MAP) 127/80 (96) Pulse Ox 96 O2 Delivery Room Air Room Air 01/24/23 00:00 Intake Total 780 ml Output Total 600 ml Balance 180 ml Constitutional: No AAO x 3; other (non-communicative) Respiratory: chest expansion is symmetric, chest is bilaterally symmetric, lungs clear to auscultation Cardiovascular: regular rate-rhythm, S1 and S2 Gastrointestional: soft, round, audible bowel sounds Extremities: no lower extremity edema bilateral Neurologic/Psychiatric: No oriented x 3; other (seems to move all limbs) Skin: other (multiple dressings on the back, not removed) Results/Procedures: Labs Microbiology 01/16/23 Blood Culture - Final, Complete No growth 01/16/23 MRSA Screen - Final, Complete MRSA not isolated 01/15/23 Urine Culture - Final, Complete Escherichia coli Enterococcus faecalis A/P: Assessment: Type 2 MO due to sepsis - Echo on 01/20/23: LVEF 60-65%, technically difficult study due to patient's inability to cooperate with the study UTI with Sepsis - management per medical services Multiple wounds / pressure sores - management per Dr Lanza and Wound Care Dementia H/O recent hip fracture Plan: * Continue bb and ASA * DVT prophylaxis with enoxaparin * Monitor labs * Med svce managing sepsis and leucocytois and UTI and wounds Clinical Quality Measures Type of Care: Type of Care: Comfort Measures CHANELL LI MD [facility] Jan 24, 2023 12:23
[2023-01-24] MEDS: SCOPOLAMINE 1.5 MG (TRANSDERM-SCOP) PATCH TOP SCH (12:58)
--- NOTE | 2023-01-24 14:09 | Physical Therapy Progress Note ---
Therapy Progress Note PT to dismiss patient from services per Dr. Lanza. CALLY LOBO PT Jan 24, 2023 14:09
--- NOTE | 2023-01-24 15:19 | Speech Therapy Daily Note ---
Speech Daily Progress Note Subjective Date Seen by Provider: Jan 24, 2023 Time Seen by Provider: 14:18 The patient was lying in bed, sleeping, upon entrance to the room by the clinician. The patient woke to a verbal greeting by the clinician. The patient has a family member at bedside, who remains sleeping throughout the treatment session. Objective The patient was agreeable to chocolate ice cream, only. The clinician fed the patient chocolate ice cream via half teaspoon. Intermittent anterior bolus loss was visualized from the right labial side. Overt s/s of suspected aspiration were not experienced throughout the skilled treatment session. The patient consumed approximately three ounces total. Assessment Assessment Current Status: Fair Progress Treatment Plan Continue Plan of Care Speech Short Term Goals Short Term Goals Short Term Goals 1. The patient will demonstrate safe swallowing precautions with 80% accuracy and moderate verbal and visual cueing from the clinician, family members, and staff. Time Frame-STG: Five Days. Speech Halfway Goals [place] Goals 1. The patient will tolerate the least restrictive diet without s/s of suspected aspiration. Time Frame: One Week. Speech-Plan Treatment Plan Speech Therapy Treatment Plan: Continue Plan of Care Treatment Duration: Jan 24, 2023 Frequency: 4 times per week Estimated Hrs Per Day: .25 hour per day Rehab Potential: Fair Safety Risks/Education Teaching Recipient: Patient Teaching Methods: Discussion Response to Teaching: Reinforcement Needed Education Topics Provided: Safe Swallowing Strategies Time Speech Therapy Time In: 14:18 Speech Therapy Time Out: 14:35 DATE: Jan 24, 2023 Total Billed Time: 17 Billed Treatment Time 1, MATHEW SLOANE ESPINAL Jan 24, 2023 15:19
--- NOTE | 2023-01-24 15:20 | Speech Therapy Progress Note ---
Therapy Progress Note The patient has comfort care orders placed at this time. Skilled speech pathology services to discharge. SLOANE ESPINAL Jan 24, 2023 15:20
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
--- NOTE | 2023-01-27 08:27 | Occ Therapy Progress Note ---
Therapy Progress Note Comfort care orders initiated. OT to discharge pt. MAC PULIDO OT Jan 27, 2023 08:26
[2023-01-27] MEDS: SCOPOLAMINE PATCH REMOVAL TP SCH (12:57)
[2023-01-27] MEDS: SCOPOLAMINE 1.5 MG (TRANSDERM-SCOP) PATCH TOP SCH (12:58)
[2023-01-28] VITALS (7 sets, daily range): BP systolic 104–127; BP diastolic 54–79
[2023-01-28 13:36] LABS: ABSOLUTE RETIC # 226 10e9/uL (24-90); BASOPHILS # (AUTO) 0.2 10^3/uL (0.0-0.1); BASOPHILS % (AUTO) 0 % (0-10); EOSINOPHILS % (AUTO) 0 % (0-10); LYMPHOCYTES # (AUTO) 1.5 10^3/uL (1.0-4.0); LYMPHOCYTES % (AUTO) 3 % (12-44); MEAN CORPUSCULAR HEMOGLOBIN 27 pg (25-34); MEAN CORPUSCULAR HGB CONC 29 g/dL (32-36); MEAN CORPUSCULAR VOLUME 91 fL (80-99); MEAN PLATELET VOLUME 9.8 fL (9.0-12.2); MONOCYTES # (AUTO) 1.1 10^3/uL (0.0-1.0); MONOCYTES % (AUTO) 2 % (0-12); NEUTROPHILS # (AUTO) 51.3 10^3/uL (1.8-7.8); NEUTROPHILS % (AUTO) 92 % (42-75); PLATELET COUNT 383 10^3/uL (130-400); RETICULOCYTE % 13.08 % (0.50-2.40)
[2023-01-28] MEDS ORDERED: NS IV 500 ML 500 ML IV SCH (13:45)
[2023-01-28 13:56] LABS: CALCIUM 8.5 MG/DL (8.5-10.1); CREATININE SERUM 0.76 MG/DL (0.60-1.30)
[2023-01-28 14:37] LABS: HEMATOCRIT 16 % (35-52); HEMOGLOBIN 4.6 g/dL (11.5-16.0); WHITE BLOOD COUNT 56.1 10^3/uL (4.3-11.0)
[2023-01-28 14:38] LABS: BAND NEUTROPHILS 2 %; LYMPHOCYTES % (MANUAL) 2 %; METAMYELOCYTES % 1 %; MONOCYTES % (MANUAL) 2 %; NEUTROPHILS % (MANUAL) 93 %; NUCLEATED RED BLOOD CELLS 1
[2023-01-28 14:40] LABS: ANISOCYTOSIS MARKED; HYPOCHROMASIA MODERATE; POLYCHROMASIA MODERATE
--- NOTE | 2023-01-28 15:09 | Physical Therapy Evaluation ---
PT Evaluation-General Medical Diagnosis Admission Date Jan 16, 2023 at 01:08 Medical Diagnosis: Severe Sepsis Onset Date: Jan 16, 2023 Therapy Diagnosis Therapy Diagnosis: Strength deficit Precautions Precautions/Isolations: Fall Prevention, Standard Precautions Weight Bear Status Right Lower Extremity: Right Full Weight Bearing Left Lower Extremity: Left Full Weight Bearing Referral Physician: Pool Reason for Referral: Evaluation/Treatment Medical History Pertinent Medical History: Dementia Reviewed History: Yes Social History Home: Prior Prior Level of Function SCALE: Activities may be completed with or without assistive devices. 6-Ncjbascvrh-exxtqoe completes the activity by him/herself with no assistance from a helper. 5-Set-up or Clean-up Assistance-helper sets up or cleans up; patient completes activity. [place] assists only prior to or following the activity. 4-Supervision or Touching Assistance-helper provides verbal cues and/or touching/steadying and/or contact guard assistance as patient completes activity. Assistance may be provided throughout the activity or intermittently. 3-Partial/Moderate Assistance-helper does LESS THAN HALF the effort. [place] lifts, holds or supports trunk or limbs, but provides less than half the effort. 2-Substantial/Maximal Assistance-helper does MORE THAN HALF the effort. [place] lifts or holds trunk or limbs and provides more than half the effort. 9-Gpfexigjh-ekugph does ALL the effort. Patient does none of the effort to complete the activity. Or, the assistance of 2 or more helpers is required for the patient to complete the activity. If activity was not attempted, code reason: 7-Patient Refused. 9-Not Applicable-not attempted and the patient did not perform the activity before the current illness, exacerbation or injury. 10-Not Attempted due to Environmental Limitations-(lack of equipment, weather restraints, etc.). 88-Not Attempted due to Medical Conditions or Safety Concerns. unable to determine due to patient has dementia and no family present PT Evaluation-Current Subjective Patient states "I love you" and shakes her head "no" to all questions and comments. ROM/Strength ROM Lower Extremities Limited all planes due to pain as patient yells each time her LEs are touched. Unable to determine specific ROM however as patient is unable to comply with verbal commands for AROM testing and unable to tolerate PROM testing. Strength Lower Extremities Limited all planes due to pain as patient yells each time her LEs are touched. Unable to determine specific MMT strength as patient is unable to comply with verbal commands for MMT Integumentary/Posture Bowel Incontinence: Yes Bladder Incontinence: Lepe Cath Sensory Vision: Functional Hearing: Functional Transfers Roll Left to Right (QC): 1 Sit to Lying (QC): 1 Lying to Sitting/Side of Bed(Q: 1 Gait Does the Patient Walk?: No and Walking Goal NOT indicated Mode of Locomotion: Wheelchair Anticipated Mode of Locomotion: Wheelchair Balance Sitting Static: Poor Sitting Dynamic: Poor Assessment/Needs Patient does not respond appropriately to any questions or comments. Initially resistive to movement, however patient requires total assistance for all observed bed mobility and transfers. Patient able to sit on the edge of the bed ~ 3 minutes. PCT notified as patient is incontinent of BM. PT assisted with bed mobility for cleaning. Patient required total A for cleaning from PCT and total assistance for bed mobility from PT. Patient in bed post treatment with all needs met, nursing notified, call light in reach and bed alarm activated. Rehab Potential: Guarded PT Skilled Nursing Goals Skilled Nursing Goals PT Skilled Nursing Goals Time Frame: Feb 01, 2023 Roll Left & Right (QC): 2 Sit to Lying (QC): 2 Lying-Sitting on Side/Bed(QC): 2 Sit to Stand (QC): 2 Chair/Eyv-hq-Miobw Xfer(QC): 2 PT Plan Problem List Problem List: Activity Tolerance, Functional Strength, Safety, Balance, Gait, Transfer, Bed Mobility, ROM Treatment/Plan Treatment Plan: Continue Plan of Care Treatment Plan: Bed Mobility, Education, Functional Activity Pa, Functional Strength, Gait, Safety, Therapeutic Exercise, Transfers Treatment Duration: Feb 01, 2023 Frequency: 5 times per week Estimated Hrs Per Day: .25 hour per day Patient and/or Family Agrees t: Yes Safety Risks/Education Patient Education: Transfer Techniques Teaching Recipient: Patient Teaching Methods: Demonstration, Discussion Response to Teaching: Reinforcement Needed Time Time In: 1433 Time Out: 1458 DATE: Jan 28, 2023 Total Billed Treatment Time: 25 Total Billed Treatment Visit, PEACE KENNEDY JOHN A PT Jan 28, 2023 15:09
--- NOTE | 2023-01-28 16:07 | Progress Note ---
Subjective Subjective/Events-last exam Pt lying in bed with mouth open, does not respond to questions initially, then mumbles. Shakes her head once. Objective Exam Last Set of Vital Signs Vital Signs Date Time Temp Pulse Resp B/P (MAP) Pulse Ox O2 Delivery O2 Flow Rate FiO2 01/28/23 14:12 37.3 112 22 127/58 (81) 94 Room Air 01/26/23 07:13 0.00 Capillary Refill : Less Than 3 Seconds I&O Intake and Output 01/27/23 23:59 Intake Total 900 ml Output Total 1000 ml Balance -100 ml Intake Oral 900 ml Output Urine Total 1000 ml General: Other (somnolent, arouses to voice) Abdomen: Other (moves a little during palpation, possible mild discomfort based on grimace) Extremities: No Edema Neuro: Other (mumbles, opens eyes) Results/Procedures Lab Laboratory Tests 01/28/23 13:20: White Blood Count 56.1*H, Red Blood Count 1.73L, Hemoglobin 4.6*L, Hematocrit 16*L, Mean Corpuscular Volume 91, Mean Corpuscular Hemoglobin 27, Mean Corpuscular Hemoglobin Concent 29L, Red Cell Distribution Width 22.8H, Platelet Count 383, Mean Platelet Volume 9.8, Immature Granulocyte % (Auto) 4, Neutrophils (%) (Auto) 92H, Lymphocytes (%) (Auto) 3L, Monocytes (%) (Auto) 2, Eosinophils (%) (Auto) 0, Basophils (%) (Auto) 0, Neutrophils # (Auto) 51.3H, Lymphocytes # (Auto) 1.5, Monocytes # (Auto) 1.1H, Eosinophils # (Auto) 0.0, Basophils # (Auto) 0.2H, Immature Granulocyte # (Auto) 2.1H, Neutrophils % (Manual) 93, Lymphocytes % (Manual) 2, Monocytes % (Manual) 2, Metamyelocytes % 1, Band Neutrophils 2, Nucleated Red Blood Cells 1, Polychromasia MODERATE, Hypochromasia MODERATE, Anisocytosis MARKED, Absolute Reticulocyte Count 226H, Percent Reticulocyte Count 13.08H, Sodium Level 148H, Potassium Level 3.0L, Chloride Level 116H, Carbon Dioxide Level 20L, Anion Gap 12, Blood Urea Nitrogen 44H, Creatinine 0.76, Estimat Glomerular Filtration Rate 86, BUN/Creatinine Ratio 58, Glucose Level 140H, Calcium Level 8.5 Microbiology 01/28/23 C. difficile GDH Antigen & Toxins - Final, Complete 01/16/23 Blood Culture - Final, Complete No growth 01/16/23 MRSA Screen - Final, Complete MRSA not isolated 01/15/23 Urine Culture - Final, Complete Escherichia coli Enterococcus faecalis Radiology NAME: LARISA VIGIL [facility] REC#: [id number] PT STATUS: ADM IN : 1955 PHYSICIAN: NELA DORMAN DO ADMIT DATE: 01/16/23/ICU Signed Date of Exam:01/16/23 CHEST 1 VIEW, AP/PA ONLY EXAMINATION: Chest radiograph, portable AP view. DATE: 01/16/2023 1:55 PM INDICATION: 67-year-old female, evaluation of PICC line position. COMPARISON: January 15, 2023. FINDINGS: Heart size and mediastinal contours are unchanged. There is no identified pneumothorax. There is no large pleural effusion. There are right perihilar opacities. There is elevation of the right hemidiaphragm. The right-sided PIC line overlies the mid SVC and is new. IMPRESSION: 1. New right-sided PIC line overlies the mid SVC. 2. Nonspecific right perihilar opacification which may reflect atelectasis and/or infiltrate. Dictated by: Dictated on workstation # [id number] Dict: 01/16/23 1435 Trans: 01/16/23 1707 [facility] [id number] Interpreted by: JARRELL ARAMBULA MD Electronically signed by: JARRELL ARAMBULA MD 01/16/23 1707 Assessment/Plan Assessment/Plan (1) Severe sepsis Status: Resolved Assessment & Plan: On admit had elevated lactic acid. Resolved with treatment. Suspect secondary to UTI- culture with E coli and enterococcus, blood cultures no growth. (2) UTI (urinary tract infection) Status: Acute Assessment & Plan: Completed course of cefepime. Qualifiers: Qualified Codes: N30.00 - Acute cystitis without hematuria (3) Leukocytosis Status: Acute Assessment & Plan: Out of proportion to infection and not improved with remainder of infection markers, concerning for leukemia. Peripheral smear ordered. Qualifiers: Qualified Codes: D72.825 - Bandemia (4) Elevated troponin Status: Acute Assessment & Plan: Cardiology consulted, suspect type II [place] due to sepsis Echo on 01/20/23: LVEF 60-65%, technically difficult study due to patient's inability to cooperate with the study (5) Dementia Status: Chronic Assessment & Plan: Per discussion with daughter Michaela, baseline she would say "I love you" but not a lot else. Was able to ambulate some and she went out to eat with her not long before this. (6) Hypokalemia Status: Acute (7) High risk social situation Status: Acute Assessment & Plan: transaction advisory services manager consulted, patient apparently not well cleaned at home on admission to ER. Was discharged from [facility] in December after hip fracture. (8) Hip fracture, left Status: Resolved Assessment & Plan: s/p ORIF 11/22/22, went to [facility] on d/c, had indwelling uriarte at that time. D/C from SNF 12/17/22 to home. (9) Asthma Status: Chronic (10) GERD (gastroesophageal reflux disease) Status: Chronic (11) Hypertension Status: Chronic (12) Hyperlipidemia Status: Chronic (13) Elevated brain natriuretic peptide (BNP) level Status: Acute Assessment & Plan: Echo on 01/20/23: LVEF 60-65%, technically difficult study due to patient's inability to cooperate with the study (14) Protein malnutrition Status: Acute (15) Goals of care, counseling/discussion Status: Acute Assessment & Plan: Per notes from 01/27, daughter wanted patient to be DNR. I called to discuss status with daughter Michaela, and she confirmed she believed patient would want to be DNR. However, she did want to continue any possible treatments to see if she would improve, particularly mobility aragon. Discussed that labs and vitals not done due to comfort status and daughter stated she did want those things to be done, so I did order and resume PT/OT/ST. Discussed high white count and concern for cancer, she does not believe patient would want BM biopsy, but would like to pursue peripheral smear in case it can add information for decision making. Michaela states she will be here, coming down from [place] tomorrow and we can further discuss status and goals. HEMANTH FLORES MD Jan 28, 2023 16:07
[2023-01-28] MEDS ORDERED: NS IV 500 ML 500 ML IV PRN (16:45)
[2023-01-28] MEDS: POTASSIUM CL 10MEQ/50ML IVPB 50 ML IV SCH ×4 (17:17→20:54)
[2023-01-28] MEDS: D5W W/KCL 20 MEQ/L 1,000 ML IV SCH (19:33)
[2023-01-28 21:09] LABS: HEMOGLOBIN 7.7 g/dL (11.5-16.0)
[2023-01-29] VITALS (9 sets, daily range): BP systolic 108–140; BP diastolic 56–80
[2023-01-29] MEDS: D5W W/KCL 20 MEQ/L 1,000 ML IV SCH ×3 (02:26→15:43)
[2023-01-29 06:09] LABS: BASOPHILS # (AUTO) 0.1 10^3/uL (0.0-0.1); BASOPHILS % (AUTO) 0 % (0-10); EOSINOPHILS # (AUTO) 0.1 10^3/uL (0.0-0.3); EOSINOPHILS % (AUTO) 0 % (0-10); LYMPHOCYTES # (AUTO) 1.4 10^3/uL (1.0-4.0); LYMPHOCYTES % (AUTO) 3 % (12-44); MEAN CORPUSCULAR HEMOGLOBIN 28 pg (25-34); MEAN CORPUSCULAR HGB CONC 31 g/dL (32-36); MEAN CORPUSCULAR VOLUME 90 fL (80-99); MEAN PLATELET VOLUME 9.7 fL (9.0-12.2); MONOCYTES % (AUTO) 2 % (0-12); NEUTROPHILS # (AUTO) 40.4 10^3/uL (1.8-7.8); NEUTROPHILS % (AUTO) 91 % (42-75); PLATELET COUNT 227 10^3/uL (130-400)
[2023-01-29 06:15] LABS: HEMATOCRIT 20 % (35-52); HEMOGLOBIN 6.1 g/dL (11.5-16.0); WHITE BLOOD COUNT 44.3 10^3/uL (4.3-11.0)
[2023-01-29 06:19] LABS: ALBUMIN 2.1 GM/DL (3.2-4.5); POTASSIUM 3.8 MMOL/L (3.6-5.0)
[2023-01-29 06:20] LABS: CALCIUM 7.9 MG/DL (8.5-10.1)
[2023-01-29 06:22] LABS: TOTAL PROTEIN 4.4 GM/DL (6.4-8.2)
[2023-01-29 06:24] LABS: BILIRUBIN,TOTAL 0.4 MG/DL (0.1-1.0)
[2023-01-29 06:25] LABS: CREATININE SERUM 0.61 MG/DL (0.60-1.30)
[2023-01-29] MEDS ORDERED: NS IV 500 ML 500 ML IV SCH (06:30)
[2023-01-29 06:33] LABS: BAND NEUTROPHILS 3 %; HYPOCHROMASIA MODERATE; LYMPHOCYTES % (MANUAL) 3 %; MONOCYTES % (MANUAL) 3 %; NEUTROPHILS % (MANUAL) 91 %; NUCLEATED RED BLOOD CELLS 3; PLATELET ESTIMATE ADEQUATE; POIKILOCYTOSIS SLIGHT; POLYCHROMASIA MODERATE
[2023-01-29 06:34] LABS: ANISOCYTOSIS SLIGHT; SCHISTOCYTES SLIGHT; TOXIC GRANULATION/VACUOLAZATIO 2+
--- NOTE | 2023-01-29 10:31 | Occupational Therapy Eval ---
OT Evaluation-General/PLF Medical Diagnosis Admission Date Jan 16, 2023 at 01:08 Medical Diagnosis: Severe Sepsis Onset Date: Jan 16, 2023 Therapy Diagnosis Therapy Diagnosis: debility Precautions Precautions/Isolations: Fall Prevention, Standard Precautions, Pressure Ulcer Safety Interventions: Bed Exit Alarm Comments Patient demonstrates intermittent combative physical behavior Weight Bear Status Weight Bearing Restriction: Weight Bearing/Tolerated Referral Physician: Pool Referral Reason: Evaluation/Treatment Medical History Pertinent Medical History: Dementia Additional Medical History During evaluation OT detected odor w/ rolling patient, RN attended session to assist w/ skin check and PU assessment. wound addressed, see bath attendant, patient left open to air with no LB garments and sheet and gown drape over body Current History Patient admitted to hospital 11/22-11/27 s/p fall with Left hip fracture. DC to [facility]. Admission to this episode d/t sepsis. Patient received OT services 01/15- 01/27 and discontinued d/t comfort measures. 01/28/23 Change in family dynamics and plan of hospital course resulting in new OT evaluation Reviewed History: Yes Social History Home: DC placement and course TBD ADL-Prior Level of Function SCALE: Activities may be completed with or without assistive devices. 1-Lfcfjpryta-vavvzoe completes the activity by him/herself with no assistance from a helper. 5-Set-up or Clean-up Assistance-helper sets up or cleans up; patient completes activity. [place] assists only prior to or following the activity. 4-Supervision or Touching Assistance-helper provides verbal cues and/or touching/steadying and/or contact guard assistance as patient completes activity. Assistance may be provided throughout the activity or intermittently. 3-Partial/Moderate Assistance-helper does LESS THAN HALF the effort. [place] lifts, holds or supports trunk or limbs, but provides less than half the effort. 2-Substantial/Maximal Assistance-helper does MORE THAN HALF the effort. [place] lifts or holds trunk or limbs and provides more than half the effort. 1-Txnqvcxrx-yidxme does ALL the effort. Patient does none of the effort to complete the activity. Or, the assistance of 2 or more helpers is required for the patient to complete the activity. If activity was not attempted, code reason: 7-Patient Refused. 9-Not Applicable-not attempted and the patient did not perform the activity before the current illness, exacerbation or injury. 10-Not Attempted due to Environmental Limitations-(lack of equipment, weather restraints, etc.). 88-Not Attempted due to Medical Conditions or Safety Concerns. Self Care: Needed Some Help Functional Cognition: Needed Some Help OT Current Status Subjective Calls out "NO" and OUCH w/ non movement. Swats at OT and PCT. Waves "HELLO" to Dr. Blanton Mental Status/Objective Patient Orientation: Confused Attachments: Lepe Catheter, IV, Other-See Comments (unit of blood) Current Upper Extremity ROM PROM WFLS, does not follow commands for AROM Upper Extremity Coordination impaired Upper Extremity Strength not formally tested, observed w/ grasp on handrail what job titles mean 4/5, UE 4/5 grossly Edema: LUE edema noted ADL-Treatment Eating (QC): 1 (does not feed self, does not intiate utensil what job titles mean, coughs w/ water sips at [address] notified) Oral Hygiene (QC): 1 Shower/Bathe Self (QC): 1 (bed bath provided this date w/ OT) Upper Body Dressing (QC): 2 (Patient lifts one UE into air duirng gown change) Lower Body Dressing (QC): 1 On/Off Footwear (QC): 88 (wounds on feet) Toileting Hygiene (QC): 1 Education OT Patient Education: Correct positioning, Disease process, Progress toward Goal/Update tx plan, Purpose of tx/functional activities, Reviewed precautions, Rehab process, Safety issues Teaching Recipient: Patient Teaching Methods: Demonstration, Discussion Response to Teaching: Unable to Comprehend OT Residential Goals Residential Goals Eating (QC): 4 Oral Hygiene (QC): 4 Toileting Hygiene (QC): 3 Shower/Bathe Self (QC): 3 Upper Body Dressing (QC): 4 Lower Body Dressing (QC): 3 On/Off Footwear (QC): 4 1=Demonstrate adherence to instructed precautions during ADL tasks. 2=Patient will verbalize/demonstrate understanding of assistive devices/modif ications for ADL. 3=Patient will improve strength/tolerance for activity to enable patient to perform ADL's. OT Education/Plan Problem List/Assessment Assessment: Decreased Activ Tolerance, Decreased UE Strength, Dependent Transfers, Impaired Bed Mobility, Impaired Cognition, Impaired Coordination, Impaired Self-Care Skills Discharge Recommendations Plan/Recommendations: Discontinue OT (not appropriate for therapy) Therapy Discharge Recommendati: 24 Hour Supervision Treatment Plan/Plan of Care Patient would benefit from OT for education, treatment and training to promote independence in ADL's, mobility, safety and/or upper extremity function for ADL's. Plan of Care: OTHER (OT EVAL only not therapy appropriate at this time) Treatment Duration: Jan 25, 2023 Frequency: 3 times per week (3-5 times per week) Estimated Hrs Per Day: .25 hour per day Rehab Potential: Guarded Time Start Time: 08:50 Stop Time: 09:40 DATE: Jan 29, 2023 Total Time Billed (hr/min): 50 Billed Treatment Time EVM, ADL 2 50 min JEN CAUSEY OT Jan 29, 2023 10:31
--- NOTE | 2023-01-29 11:08 | Physical Therapy Daily Note ---
PT Daily Note-Current Subjective Patient lying supine in bed with HOB elevated fully upon PT arrival, family in the room agreeable to treatment. Patient responds only by saying "ouch" numerous times. When asked where her pain was she replied, "Ouch, Fuck you". Pain Section J - Health Conditions 1. Rarely or not at all 2. Occasionally 3. Frequently 4. Almost constantly 8. Unable to answer Pain Effect on Sleep: 8 Pain Interference with Therapy: 8 Pain Interference w/Day-to-Day: 8 Transfers SCALE: Activities may be completed with or without assistive devices. 1-Hxyjksqszo-qgszavw completes the activity by him/herself with no assistance from a helper. 5-Set-up or Clean-up Assistance-helper sets up or cleans up; patient completes activity. [place] assists only prior to or following the activity. 4-Supervision or Touching Assistance-helper provides verbal cues and/or touching/steadying and/or contact guard assistance as patient completes activity. Assistance may be provided throughout the activity or intermittently. 3-Partial/Moderate Assistance-helper does LESS THAN HALF the effort. [place] lifts, holds or supports trunk or limbs, but provides less than half the effort. 2-Substantial/Maximal Assistance-helper does MORE THAN HALF the effort. [place] lifts or holds trunk or limbs and provides more than half the effort. 2-Esyfcjjhb-nnmmtd does ALL the effort. Patient does none of the effort to complete the activity. Or, the assistance of 2 or more helpers is required for the patient to complete the activity. If activity was not attempted, code reason: 7-Patient Refused. 9-Not Applicable-not attempted and the patient did not perform the activity before the current illness, exacerbation or injury. 10-Not Attempted due to Environmental Limitations-(lack of equipment, weather restraints, etc.). 88-Not Attempted due to Medical Conditions or Safety Concerns. Roll Left & Right (QC): 1 Sit to Lying (QC): 1 Lying to Sitting/Side of Bed(Q: 1 Weight Bearing Right Lower Extremity: Right Full Weight Bearing Left Lower Extremity: Left Full Weight Bearing Assessment Current Status: Poor Progress Once awakened, patient mildly more alert this visit, however replies only minimally as stated in the Subjective. Patient requires total assistance for all bed mobility and transfers. Patient sits at EOB ~ 5 minutes with max A and continuous verbal cues. Patient returned to bed post treatment with all needs met, nursing notified, call light in hand, family in the room and bed alarm activated. PT [employer] Sql Developer Goals [employer] Sql Developer Goals PT [employer] Sql Developer Goals Time Frame: Feb 01, 2023 Roll Left & Right (QC): 2 Sit to Lying (QC): 2 Lying-Sitting on Side/Bed(QC): 2 Sit to Stand (QC): 2 Chair/Xdd-vq-Ttbmy Xfer(QC): 2 PT Plan Treatment/Plan Treatment Plan: Continue Plan of Care Treatment Plan: Bed Mobility, Education, Functional Activity Pa, Functional Strength, Gait, Safety, Therapeutic Exercise, Transfers Treatment Duration: Feb 01, 2023 Frequency: 5 times per week Estimated Hrs Per Day: .25 hour per day Patient and/or Family Agrees t: Yes Safety Risks/Education Patient Education: Transfer Techniques Teaching Recipient: Patient Teaching Methods: Demonstration, Discussion Response to Teaching: Reinforcement Needed Time Time In: 1008 Time Out: 1020 DATE: Jan 29, 2023 Total Billed Treatment Time: 12 Total Billed Treatment Visit, LORRIE ARCHULETA PT Jan 29, 2023 11:08
--- NOTE | 2023-01-29 11:47 | Progress Note ---
Subjective Subjective/Events-last exam Pt awake and getting bed bath when I entered room. Appears more alert than yesterday, raised hand at me, possibly waving. Did not answer questions. Frequently saying "ow' with any movement or touching. Objective Exam Last Set of Vital Signs Vital Signs Date Time Temp Pulse Resp B/P (MAP) Pulse Ox O2 Delivery O2 Flow Rate FiO2 01/29/23 07:47 36.0 92 32 119/71 98 Room Air 01/26/23 07:13 0.00 Capillary Refill : Less Than 3 Seconds I&O Intake and Output 01/29/23 00:00 Intake Total 1260 ml Output Total 800 ml Balance 460 ml Intake Oral 1160 ml IV Total 100 ml Output Urine Total 800 ml # Bowel Movements 2 General: Alert, No Acute Distress Lungs: Clear to Auscultation Heart: Regular Rate Abdomen: Normal Bowel Sounds, Soft Neuro: Other (alert, does not answer questions, minimally cooperative and says "ow" when asked to move or guided movements) Results/Procedures Lab Laboratory Tests 01/28/23 13:20: White Blood Count 56.1*H, Red Blood Count 1.73L, Hemoglobin 4.6*L, Hematocrit 16*L, Mean Corpuscular Volume 91, Mean Corpuscular Hemoglobin 27, Mean Corpuscular Hemoglobin Concent 29L, Red Cell Distribution Width 22.8H, Platelet Count 383, Mean Platelet Volume 9.8, Immature Granulocyte % (Auto) 4, Neutrophils (%) (Auto) 92H, Lymphocytes (%) (Auto) 3L, Monocytes (%) (Auto) 2, Eosinophils (%) (Auto) 0, Basophils (%) (Auto) 0, Neutrophils # (Auto) 51.3H, Lymphocytes # (Auto) 1.5, Monocytes # (Auto) 1.1H, Eosinophils # (Auto) 0.0, Basophils # (Auto) 0.2H, Immature Granulocyte # (Auto) 2.1H, Neutrophils % (Manual) 93, Lymphocytes % (Manual) 2, Monocytes % (Manual) 2, Metamyelocytes % 1, Band Neutrophils 2, Nucleated Red Blood Cells 1, Polychromasia MODERATE, Hypochromasia MODERATE, Anisocytosis MARKED, Absolute Reticulocyte Count 226H, Percent Reticulocyte Count 13.08H, Sodium Level 148H, Potassium Level 3.0L, Chloride Level 116H, Carbon Dioxide Level 20L, Anion Gap 12, Blood Urea Nitrogen 44H, Creatinine 0.76, Estimat Glomerular Filtration Rate 86, BUN/Creatinine Ratio 58, Glucose Level 140H, Calcium Level 8.5 01/28/23 20:37: Stool Occult Blood Immunoassay POSITIVEH 01/28/23 21:02: Hemoglobin 7.7#L, Hematocrit 25L 01/29/23 05:45: White Blood Count 44.3*H, Red Blood Count 2.19L, Hemoglobin 6.1#*L, Hematocrit 20*L, Mean Corpuscular Volume 90, Mean Corpuscular Hemoglobin 28, Mean Corpuscular Hemoglobin Concent 31L, Red Cell Distribution Width 17.8H, Platelet Count 227, Mean Platelet Volume 9.7, Immature Granulocyte % (Auto) 3, Neutrophils (%) (Auto) 91H, Lymphocytes (%) (Auto) 3L, Monocytes (%) (Auto) 2, Eosinophils (%) (Auto) 0, Basophils (%) (Auto) 0, Neutrophils # (Auto) 40.4H, Lymphocytes # (Auto) 1.4, Monocytes # (Auto) 1.0, Eosinophils # (Auto) 0.1, Basophils # (Auto) 0.1, Immature Granulocyte # (Auto) 1.3H, Neutrophils % (Manual) 91, Lymphocytes % (Manual) 3, Monocytes % (Manual) 3, Band Neutrophils 3, Nucleated Red Blood Cells 3, Polychromasia MODERATE, Hypochromasia MODERATE, Anisocytosis SLIGHT, Sodium Level 142, Potassium Level 3.8, Chloride Level 117H, Carbon Dioxide Level 20L, Anion Gap 5, Blood Urea Nitrogen 40H, Creatinine 0.61, Estimat Glomerular Filtration Rate 98, BUN/Creatinine Ratio 66, Glucose Level 136H, Calcium Level 7.9L, Toxic Granulation 2+, Platelet Estimate ADEQUATE, Poikilocytosis SLIGHT, Schistocytes SLIGHT, Corrected Calcium 9.4, Total Bilirubin 0.4, Aspartate Amino Transf (AST/SGOT) 17, Alanine Aminotransferase (ALT/SGPT) 29, Alkaline Phosphatase 78, Total Protein 4.4L, Albumin 2.1L Microbiology 01/28/23 C. difficile GDH Antigen & Toxins - Final, Complete 01/16/23 Blood Culture - Final, Complete No growth 01/16/23 MRSA Screen - Final, Complete MRSA not isolated 01/15/23 Urine Culture - Final, Complete Escherichia coli Enterococcus faecalis Radiology NAME: LARISA VIGIL [facility] REC#: [id number] PT STATUS: ADM IN : 1955 PHYSICIAN: NELA DORMAN DO ADMIT DATE: 01/16/23/ICU Signed Date of Exam:01/16/23 CHEST 1 VIEW, AP/PA ONLY EXAMINATION: Chest radiograph, portable AP view. DATE: 01/16/2023 1:55 PM INDICATION: 67-year-old female, evaluation of PICC line position. COMPARISON: January 15, 2023. FINDINGS: Heart size and mediastinal contours are unchanged. There is no identified pneumothorax. There is no large pleural effusion. There are right perihilar opacities. There is elevation of the right hemidiaphragm. The right-sided PIC line overlies the mid SVC and is new. IMPRESSION: 1. New right-sided PIC line overlies the mid SVC. 2. Nonspecific right perihilar opacification which may reflect atelectasis and/or infiltrate. Dictated by: Dictated on workstation # [id number] Dict: 01/16/23 1435 Trans: 01/16/23 1707 [facility] [id number] Interpreted by: JARRELL ARAMBULA MD Electronically signed by: JARRELL ARAMBULA MD 01/16/23 1707 Assessment/Plan Assessment/Plan (1) Severe sepsis Status: Resolved Assessment & Plan: On admit had elevated lactic acid. Resolved with treatment. Suspect secondary to UTI- culture with E coli and enterococcus, blood cultures no growth. (2) UTI (urinary tract infection) Status: Resolved Assessment & Plan: Completed course of cefepime. Qualifiers: Qualified Codes: N30.00 - Acute cystitis without hematuria (3) Leukocytosis Status: Acute Assessment & Plan: Out of proportion to infection and not improved with remainder of infection markers, concerning for leukemia. Peripheral smear ordered. Qualifiers: Qualified Codes: D72.825 - Bandemia (4) Elevated troponin Status: Acute Assessment & Plan: Cardiology consulted, suspect type II MO due to sepsis Echo on 01/20/23: LVEF 60-65%, technically difficult study due to patient's inability to cooperate with the study (5) Dementia Status: Chronic Assessment & Plan: Per discussion with daughter Michaela, baseline she would say "I love you" but not a lot else. States she was able to ambulate some and she went out to eat with her not long before this. (6) Hypokalemia Status: Acute (7) High risk social situation Status: Acute Assessment & Plan: human services supervisor consulted, patient apparently not well cleaned at home on admission to ER. Was discharged from [facility] in December after hip fracture. (8) Hip fracture, left Status: Resolved Assessment & Plan: s/p ORIF 11/22/22, went to [facility] on d/c, had indwelling uriarte at that time. D/C from SNF 12/17/22 to home. (9) Asthma Status: Chronic (10) GERD (gastroesophageal reflux disease) Status: Chronic (11) Hypertension Status: Chronic (12) Hyperlipidemia Status: Chronic (13) Elevated brain natriuretic peptide (BNP) level Status: Acute Assessment & Plan: Echo on 01/20/23: LVEF 60-65%, technically difficult study due to patient's inability to cooperate with the study (14) Protein malnutrition Status: Acute (15) Anemia Status: Acute Assessment & Plan: Cause not entirely clear, suspect due to bone marrow failure, given rapidity of drop and no clear evidence of bleeding. s/p 1 unit PRBC 01/28 with improvement, but hemoglobin down to below 7 again this am, repeat 1 unit. (16) Goals of care, counseling/discussion Status: Acute Assessment & Plan: Per notes from 01/27, daughter wanted patient to be DNR. 01/28- I called to discuss status with daughter Michaela, and she confirmed she believed patient would want to be DNR. However, she did want to continue any possible treatments to see if she would improve, particularly mobility aragon. Discussed that labs and vitals not done due to comfort status and daughter stated she did want those things to be done, so I did order and resume PT/OT/ST. Discussed high white count and concern for cancer, she does not believe patient would want BM biopsy, but would like to pursue peripheral smear in case it can add information for decision making. Michaela states she will be here, coming down from [place] tomorrow and we can further discuss status and goals. 01/29- spoke with daughter Michaela and two grandsons at bedside about 1 pm, they are hopeful for her to get better, but also do not believe she would want bone marrow biopsy or scopes to evaluate her anemia or undergo treatment were serious underlying cause such as cancer found. Discussed possibility of hospice and Michaela says that while she doesn't feel ready for that, she thinks it may be best and notes that Larisa has said her 's name and she believes she wants to be with him. She would like to take her home with hospice if it can be done, discussed may be challenging for transportation and things, but social work and hospice can discuss further to help determine options. Michaela does want to proceed with vitals and labs for now until a final decision relating to hospice is made. HEMANTH FLORES MD Jan 29, 2023 11:47
--- NOTE | 2023-01-29 13:21 | Progress Note - Cardiology ---
Cardiology SOAP Progress Note Subjective: Non-communicative Objective: I&O/Vital Signs 01/29/23 01/29/23 01/29/23 01/29/23 04:05 07:10 07:25 07:47 Temp 36.2 36.0 36.2 36.0 Pulse 99 98 98 92 Resp 32 24 32 32 B/P (MAP) 119/75 (90) 128/80 (96) 128/74 119/71 Pulse Ox 96 96 97 98 O2 Delivery Room Air Room Air Room Air Room Air 01/29/23 01/29/23 10:30 12:07 Temp 36.3 35.7 Pulse 90 90 Resp 32 32 B/P (MAP) 140/63 132/60 (84) Pulse Ox 97 97 O2 Delivery Room Air Room Air 01/29/23 00:00 Intake Total 1010 ml Output Total 500 ml Balance 510 ml Constitutional: No AAO x 3; other (non-communicative) Respiratory: No accessory muscle use; chest expansion is symmetric, chest is bilaterally symmetric, lungs clear to auscultation Cardiovascular: regular rate-rhythm, S1 and S2 Gastrointestional: soft, round, audible bowel sounds Extremities: No clubbing, No cyanosis; no lower extremity edema bilateral Neurologic/Psychiatric: No oriented x 3; other (seems to move all limbs but unable to cooperate with a neuro exam) Skin: other (multiple dressings on the back, not removed) Results/Procedures: Labs Laboratory Tests 01/28/23 13:20: White Blood Count 56.1*H, Red Blood Count 1.73L, Hemoglobin 4.6*L, Hematocrit 16*L, Mean Corpuscular Volume 91, Mean Corpuscular Hemoglobin 27, Mean Corpuscular Hemoglobin Concent 29L, Red Cell Distribution Width 22.8H, Platelet Count 383, Mean Platelet Volume 9.8, Immature Granulocyte % (Auto) 4, Neutrophils (%) (Auto) 92H, Lymphocytes (%) (Auto) 3L, Monocytes (%) (Auto) 2, Eosinophils (%) (Auto) 0, Basophils (%) (Auto) 0, Neutrophils # (Auto) 51.3H, Lymphocytes # (Auto) 1.5, Monocytes # (Auto) 1.1H, Eosinophils # (Auto) 0.0, Basophils # (Auto) 0.2H, Immature Granulocyte # (Auto) 2.1H, Neutrophils % (Manual) 93, Lymphocytes % (Manual) 2, Monocytes % (Manual) 2, Metamyelocytes % 1, Band Neutrophils 2, Nucleated Red Blood Cells 1, Polychromasia MODERATE, Hypochromasia MODERATE, Anisocytosis MARKED, Absolute Reticulocyte Count 226H, Percent Reticulocyte Count 13.08H, Sodium Level 148H, Potassium Level 3.0L, Chloride Level 116H, Carbon Dioxide Level 20L, Anion Gap 12, Blood Urea Nitrogen 44H, Creatinine 0.76, Estimat Glomerular Filtration Rate 86, BUN/Creatinine Rati o 58, Glucose Level 140H, Calcium Level 8.5 01/28/23 20:37: Stool Occult Blood Immunoassay POSITIVEH 01/28/23 21:02: Hemoglobin 7.7#L, Hematocrit 25L 01/29/23 05:45: White Blood Count 44.3*H, Red Blood Count 2.19L, Hemoglobin 6.1#*L, Hematocrit 20*L, Mean Corpuscular Volume 90, Mean Corpuscular Hemoglobin 28, Mean Corpuscular Hemoglobin Concent 31L, Red Cell Distribution Width 17.8H, Platelet Count 227, Mean Platelet Volume 9.7, Immature Granulocyte % (Auto) 3, Neutrophils (%) (Auto) 91H, Lymphocytes (%) (Auto) 3L, Monocytes (%) (Auto) 2, Eosinophils (%) (Auto) 0, Basophils (%) (Auto) 0, Neutrophils # (Auto) 40.4H, Lymphocytes # (Auto) 1.4, Monocytes # (Auto) 1.0, Eosinophils # (Auto) 0.1, Basophils # (Auto) 0.1, Immature Granulocyte # (Auto) 1.3H, Neutrophils % (Manual) 91, Lymphocytes % (Manual) 3, Monocytes % (Manual) 3, Band Neutrophils 3, Nucleated Red Blood Cells 3, Polychromasia MODERATE, Hypochromasia MODERATE, Anisocytosis SLIGHT, Sodium Level 142, Potassium Level 3.8, Chloride Level 117H, Carbon Dioxide Level 20L, Anion Gap 5, Blood Urea Nitrogen 40H, Creatinine 0.61, Estimat Glomerular Filtration Rate 98, BUN/Creatinine Ratio 66, Glucose Level 13 6H, Calcium Level 7.9L, Toxic Granulation 2+, Platelet Estimate ADEQUATE, Poikilocytosis SLIGHT, Schistocytes SLIGHT, Corrected Calcium 9.4, Total Bilirubin 0.4, Aspartate Amino Transf (AST/SGOT) 17, Alanine Aminotransferase (ALT/SGPT) 29, Alkaline Phosphatase 78, Total Protein 4.4L, Albumin 2.1L 01/29/23 12:33: Lab Scanned Report Transfusion Reaction Form Microbiology 01/28/23 C. difficile GDH Antigen & Toxins - Final, Complete 01/16/23 Blood Culture - Final, Complete No growth 01/16/23 MRSA Screen - Final, Complete MRSA not isolated 01/15/23 Urine Culture - Final, Complete Escherichia coli Enterococcus faecalis Laboratory Tests 01/28/23 13:20 01/28/23 21:02 01/29/23 05:45 A/P: Assessment: Type 2 IN due to sepsis - Echo on 01/20/23: LVEF 60-65%, technically difficult study due to patient's inability to cooperate with the study UTI with Sepsis - management per medical services Multiple wounds / pressure sores - management per Med Svce and Wound Care Dementia H/o L hip fracture in Nov 2022, treated with surgery Severe anemia and leucocytosis - managed by the Med Svce Plan: * Complex management due to multiple comorbidities and dementia * Continue bb and ASA * DVT prophylaxis with enoxaparin, if no contraindication * Monitor labs * Med svce managing sepsis and leucocytois and and anemia UTI and wounds Clinical Quality Measures Type of Care: Type of Care: Comfort Measures CHANELL LI MD FACP [facility] Jan 29, 2023 13:21
--- NOTE | 2023-01-29 13:52 | ST Cognitive Linguistic Eval ---
Speech Evaluation-General Medical Diagnosis Severe Sepsis Onset Date: Jan 16, 2023 Therapy Diagnosis Therapy Diagnosis: Impaired Cognition (Suspected Baseline) Precautions Precautions: Fall, Pressure Ulcer, Aspiration Precautions/Isolations: Aspiration, Fall Prevention, Standard Precautions, Pressure Ulcer Referral Referring Physician: Dr. Blanton Reason for Referral: Evaluation/Treatment Medical History Pertinent Medical History: Dementia Reviewed History: Yes Speech PLF-Current Status Prior Level of Function Per chart review, the patient's daughter reported the patient would occasionally stated, "I love you." Additional cognitive linguistic skills are unknown to this clinician. Subjective The patient was lying in bed, one eye open, upon entrance to her room by the clinician. The patient makes eye contact when her name was spoken by the clinician, however, does not attempt a verbal response. The patient has three young men present at bedside, who state they are grandchildren. The three men remain present at bedside for the cognitive linguistic evaluation. The patient was seated upright for attempts at increased alertness. Language Eval: Auditory The patient intermittently follows simple one-step instructions with maximum verbal encouragement and direct modeling. The patient additionally displays intermittent accuracy with simple yes and no questions, however, often shook her head "no" to chocolate ice cream while opening her mouth and reaching for the item. At this time, the patient's yes and no questions can not be deemed consistently accurate. The patient does not make attempts to identify common objects for the clinician. Language Eval: Verbal Language The patient does not attempt verbal communication or language despite consistent verbal prompting and encouragement from the clinician. Objective Impression The patient displays limited participation in the cognitive linguistic ev aluation, however, the limited expressive or receptive communication may be the patient's baseline. At this time, the patient displays severe expressive and receptive language deficits. Additional language gains will be necessary to complete cognitive evaluation items. Speech Short Term Goals Short Term Goals Short Term Goals 1. The patient will demonstrate safe swallowing precautions with 80% accuracy and moderate verbal and visual cueing from the clinician, family members, and staff. Time Frame-STG: Five Days. Speech Mcfp Goals Mcfp Goals 1. The patient will tolerate the least restrictive diet without s/s of suspected aspiration. Time Frame: One Week. Speech-Plan Treatment Plan Speech Therapy Treatment Plan: Discontinue ST (Suspected Baseline Cognition) Treatment Duration: Jan 24, 2023 Frequency: 1 time per week Estimated Hrs Per Day: .25 hour per day Rehab Potential: Poor Pt/Family Agrees to Plan: Yes Safety Risks/Education Teaching Recipient: Patient, Family Teaching Methods: Discussion Response to Teaching: Reinforcement Needed Education Topics Provided: Results, Plan of Care Time Speech Therapy Time In: 11:06 Speech Therapy Time Out: 11:22 DATE: Jan 29, 2023 Total Billed Time: 16 Billed Treatment Time 1, FABRIZIO LY [facility] Jan 29, 2023 13:52
--- NOTE | 2023-01-29 13:52 | ST Dysphagia Evaluation ---
Speech Evaluation-General Medical Diagnosis Severe Sepsis Onset Date: Jan 16, 2023 Therapy Diagnosis Therapy Diagnosis: Suspected Oropharyngeal Dysphagia Precautions Precautions: Fall, Pressure Ulcer, Aspiration Precautions/Isolations: Aspiration, Fall Prevention, Standard Precautions, Pressure Ulcer Referral Referring Physician: Dr. Blanton Reason for Referral: Evaluation/Treatment Medical History Pertinent Medical History: Dementia Reviewed History: Yes Speech PLF/Current-Dysphagia Prior Level of Function The patient's prior level of P.O. intake is unknown to the clinician at this time. Subjective The patient was lying in bed, one eye open, upon entrance to her room by the clinician. The patient makes eye contact when her name was spoken by the clinician, however, does not attempt a verbal response. The patient has three young men present at bedside, who state they are grandchildren. The three men remain present at bedside for the clinical bedside swallowing evaluation. The patient was seated upright for attempts at increased alertness and appropriate/safe swallowing posture. The OT contacted the clinician prior on this date stating the patient displayed s/s of suspected aspiration with a straw drink of water. Cognitive Status Patient Orientation: Confused Oral Motor Skills Dentition: Natural (Poor condition.) Current Food Consistancy: Dysphagia Soft (MM5), Thin Liquids Ability to Follow Directions: Poor Oral Expression Ability: Severe Impairment Face Facial Symmetry: Symmetrical (Grossly symmetrical at rest.) Dysphagia Evaluation Consistencies Presented: Thin Liquid (Straw and Chocolate Ice Cream) The patient displayed anterior spillage from the right labial side with all consistencies presented. A delayed pharyngeal swallow was suspected with all consistencies tested. Laryngeal elevation was present to palpation. The patient does not display s/s of suspected aspiration with the limited P.O. intake completed for the clinician (four straw drinks of thin liquid and five teaspoons of chocolate ice cream). The patient refused all additional P.O. intake at this time. As the patient displayed limited participation and completion of P.O. trials, the clinician is unable to provide updated P.O. diet consistency recommendations. At this time, the clinician will defer to the patient's P.O. diet consistency in place. If s/s of suspected aspiration are displayed throughout monitoring of the patient by staff, the patient should be made N.P.O. until completion of of a full oropharyngeal swallowing evaluation. While a diet consistency cannot be recommended, the clinician does recommend 1:1 supervision and assistance with meal set-up to encourage P.O. intake for the patient. Dysphagia Evaluation Summary The clinician suspects the patient will display a level of oropharyngeal dysphagia, however, due to the patient's limited participation the clinician is unable to provide specifics. The clinician will need the patient increase her participation in the oropharyngeal swallowing evaluation prior to providing s pecific updated P.O. diet consistency recommendations. Speech Short Term Goals Short Term Goals Short Term Goals 1. The patient will demonstrate safe swallowing precautions with 80% accuracy and moderate verbal and visual cueing from the clinician, family members, and staff. Time Frame-STG: Five Days. Speech Mcc Goals Mcc Goals 1. The patient will tolerate the least restrictive diet without s/s of suspected aspiration. Time Frame: One Week. Speech-Plan Treatment Plan Speech Therapy Treatment Plan: Continue Plan of Care Treatment Duration: Jan 24, 2023 Frequency: 4 times per week Estimated Hrs Per Day: .25 hour per day Rehab Potential: Guarded Pt/Family Agrees to Plan: Yes Safety Risks/Education Teaching Recipient: Patient Teaching Methods: Discussion Response to Teaching: Unable to Comprehend Education Topics Provided: Results, Recommendations, Safe Swallowing Precautions Time Speech Therapy Time In: 10:50 Speech Therapy Time Out: 11:06 DATE: Jan 29, 2023 Total Billed Time: 16 Billed Treatment Time 1, MATHEW LOZA [facility] Jan 29, 2023 13:52
[2023-01-30 03:33] VITALS: BP 126/65
[2023-01-30] MEDS ORDERED: D5W 1000 ML IV SOLUTION 1,000 ML IV ONE (06:00)
[2023-01-30 08:09] VITALS: BP 132/61
--- NOTE | 2023-01-30 09:14 | Physical Therapy Progress Note ---
Therapy Progress Note Patient became agitated with PT initiation of bilateral LE exercises. PT ceased treatment. 1 ref CALLY LOBO PT Jan 30, 2023 09:14
[2023-01-30 11:43] VITALS: BP 109/51
[2023-01-30] MEDS: SCOPOLAMINE 1.5 MG (TRANSDERM-SCOP) PATCH TOP SCH (11:55)
[2023-01-30] MEDS: D5W W/KCL 20 MEQ/L 1,000 ML IV SCH (11:56)
--- NOTE | 2023-01-30 11:56 | Speech Therapy Daily Note ---
Speech Daily Progress Note Subjective Date Seen by Provider: Jan 30, 2023 Time Seen by Provider: 10:45 The patient was lying in bed, awake, upon entrance to her room by the clinician. The patient made eye contact with the clinician upon a verbal greeting. Initially, the patient flipped the clinician off when she was asked about participation in the dysphagia treatment session. With gentle encouragement, the patient was agreeable to limited P.O. intake. The patient was seated upright in bed for safe swallowing. Objective The patient completed limited straw trials of thin liquid, teaspoons of puree, teaspoons of thin liquid (ice cream), and one piece of a carmen cracker. The patient did not display overt s/s of suspected aspiration with any consistency completed. The patient displayed prolonged, phasic mastication with the solid consistencies. A subsequent bolus of thin liquid was required to clear the solid from the oral cavity. Recommendations: - PU4 consistency diet with thin liquids, as tolerated. - Fully upright and alert for P.O. intake. - Small, single bites. - 1:1 feeding assistance and supervision. - Crush medication and place in puree for administration. - Monitor for s/s of suspected aspiration with P.O. intake. If demonstrated, please contact speech pathology. The recommendations were provided to the patient and the patient's RN immediately following completion of the treatment session. The downgraded diet consistency was placed on the in-room white board. Assessment Assessment Current Status: Poor Progress Treatment Plan Continue Plan of Care Speech Short Term Goals Short Term Goals Short Term Goals 1. The patient will demonstrate safe swallowing precautions with 80% accuracy and moderate verbal and visual cueing from the clinician, family members, and staff. Time Frame-STG: Five Days. Speech Event Host Goals Skilled Nursing Goals 1. The patient will tolerate the least restrictive diet without s/s of suspected aspiration. Time Frame: One Week. Speech-Plan Treatment Plan Speech Therapy Treatment Plan: Continue Plan of Care Treatment Duration: Jan 24, 2023 Frequency: 1 time per week Estimated Hrs Per Day: .25 hour per day Rehab Potential: Poor Safety Risks/Education Teaching Recipient: Patient Teaching Methods: Discussion Response to Teaching: Unable to Comprehend Education Topics Provided: Safe Swallowing Strategies, Recommendations Time Speech Therapy Time In: 10:45 Speech Therapy Time Out: 11:00 DATE: Jan 30, 2023 Total Billed Time: 15 Billed Treatment Time 1, DYST SLOANE ESPINAL Jan 30, 2023 11:56
[2023-01-30] MEDS: SCOPOLAMINE PATCH REMOVAL TP SCH (11:59)
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
[2023-01-30 13:28] LABS: HEMOGLOBIN 7.4 g/dL (11.5-16.0)
[2023-01-30 15:22] VITALS: BP 123/61
[2023-01-30 19:07] VITALS: BP 128/91
--- NOTE | 2023-01-31 08:18 | Speech Therapy Progress Note ---
Therapy Progress Note The patient and family have decided on comfort care measures at this time. ST to sign off of skilled services. Thank you for the consultation. SLOANE ESPINAL Jan 31, 2023 08:18
--- NOTE | 2023-01-31 10:36 | Physical Therapy Progress Note ---
Therapy Progress Note The patient and family have decided on comfort care measures at this time. PT to sign off of skilled services. Thank you for the consultation. LORRIE ABURTO PT Jan 31, 2023 10:36
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
[2023-02-02] MEDS ORDERED: morphine (ROXINOL) 10 MG/0.5 ML oral conc 0.5 ML PO PRN (11:15)
[2023-02-02] MEDS: SCOPOLAMINE 1.5 MG (TRANSDERM-SCOP) PATCH TOP SCH (12:18)
[2023-02-02] MEDS: SCOPOLAMINE PATCH REMOVAL TP SCH (12:18)
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
[2023-02-03] MEDS ORDERED: LORA2ORA PO (08:56)
[2023-02-03] MEDS ORDERED: MORP100S7 PO (08:56)
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
[2023-02-03 12:17] VITALS: BP 128/91
== END 2023-02-03 12:22 | disposition hospice, home (50) | DRG 871 ==
LOC: EDUNIT# 21:55 → ER FS 21:56 → ICU 01-16 01:08 → 4TH 01-17 14:02
PROVIDERS: ADMIT Family Medicine; ATTEND Internal Medicine
DX: A41.51 Sepsis due to Escherichia coli [E. coli] (principal); E43 Unspecified severe protein-calorie malnutrition; L89.223 Pressure ulcer of left hip, stage 3; I21.A1 Myocardial infarction type 2; E87.20 Acidosis, unspecified; R64 Cachexia; T76.01XA Adult neglect or abandonment, suspected, initial encounter; Z66 Do not resuscitate; Z51.5 Encounter for palliative care; C95.90 Leukemia, unspecified not having achieved remission; A41.81 Sepsis due to Enterococcus; N30.90 Cystitis, unspecified without hematuria; R65.20 Severe sepsis without septic shock; R33.9 Retention of urine, unspecified; Z68.24 Body mass index [BMI] 24.0-24.9, adult; R40.1 Stupor; R15.9 Full incontinence of feces; R32 Unspecified urinary incontinence; G30.9 Alzheimer's disease, unspecified; F02.80 Dementia in other diseases classified elsewhere, unspecified severity, without behavioral disturbance, psychotic disturbance, mood disturbance, and anxiety; I10 Essential (primary) hypertension; E87.6 Hypokalemia; L89.152 Pressure ulcer of sacral region, stage 2; L89.621 Pressure ulcer of left heel, stage 1; L89.322 Pressure ulcer of left buttock, stage 2; L89.891 Pressure ulcer of other site, stage 1; R21 Rash and other nonspecific skin eruption; J45.909 Unspecified asthma, uncomplicated; K21.9 Gastro-esophageal reflux disease without esophagitis; E78.5 Hyperlipidemia, unspecified; D46.9 Myelodysplastic syndrome, unspecified; Z79.899 Other long term (current) drug therapy; Z88.0 Allergy status to penicillin
CPT/HCPCS: 36415; 36569; 51702; 71045; 72170; 76937; 80048; 80053; 81000; 82274; 82947; 83605; 83690; 83735; 83880; 84100; 84484; 85007; 85014; 85018; 85025; 85027; 85045; 85055; 85610; 85652; 85730; 86141; 86850; 86900; 86901; 86920; 87040; 87077; 87081; 87088; 87186; 87324; 87449; 93005; 93041; 93306; 94760; 96361; 96365